=== PATIENT | male | born 1990 | race Caucasian/White ===

== ENCOUNTER 2017-12-17 18:35 | Emergency (ER) | payer MEDICAID, SELFPAY ==
[2017-12-17 18:39] VITALS: BP 160/78; PULSE 80; RESP 16; TEMP 36.6; O2SAT 99
[2017-12-17] MEDS: Benzocaine 20% Gel 30 GM JAR MM (18:53)
--- NOTE | 2017-12-17 19:03 | W.ED.GENAD ---
Discharge Plan Disposition Patient Disposition: HOME Condition: Good Discharge Details Chief Complaint: DentalOral Clinical Impression: Fracture of tooth Primary Care Provider: Allegra Muñiz ED Provider: Ajay Siddiqui Home Meds and New Rx's Prescriptions: New amoxicillin 500 mg capsule 500 mg PO TID Qty: 30 RF: 0 Continue methadone [Dolophine] 10 MG tablet 90 mg PO DAILY RF: 0 Discharge Instructions Instructions: Acute Dental Trauma (ED) Additional Instructions: follow up with your dentist as soon as possible you can take 1000mg tylenol and 600mg ibuprofen every 6 hours for pain as needed Medical Decision Making Patient comes in after he was chewing and felt pain in the right posterior lower molar and noticed he broke part of his tooth about an hour ago. He has no pulp showing on this tooth on my exam but is fractured on the posterior half of the tooth. Will perfrom dental block to help with pain control and place tessa bx and will have him f/u with dentist Differential Diagnosis tooth fracture, dental infection HPI General Mode of arrival: ambulatory. Date/Time Provider Initiated Documentation: 12/17/17 18:45. Limitations to Documentation: no limitations. Information obtained by: patient. History of Present Illness 27 year old M presents to the emergency department with the chief complaint of right lower posterior molar pain, described as severe, with intensity rated at 10. Quality is described as aching, and is localized to the mouth. and it has been constant. No relieving factors improve symptom(s), No exacerbating factors reported . Patient did receive the following treatments prior to arrival, none Related Data Home Medications Medication Instructions Recorded Confirmed methadone [Dolophine] 90 mg PO DAILY 05/27/15 06/09/17 amoxicillin 500 mg PO TID #30 cap 12/17/17 Previous Rx's Medication Instructions Recorded amoxicillin 500 mg PO TID #30 cap 12/17/17 Allergies Allergy/AdvReac Type Severity Reaction Status Date / Time levofloxacin [From Levaquin] Allergy Severe HIVES Unverified 06/09/17 23:37 General Stated Complaint: DentalOral ELLIS: 4 Review of Systems Review of Systems All systems reviewed & are unremarkable except as noted in HPI and below Constitutional Denies chills, Denies fever(s) and Denies weakness Eyes Denies loss of vision ENT Denies change in voice Cardiovascular Denies chest pain and Denies dyspnea Respiratory Denies dyspnea Gastrointestinal Denies abdominal pain, Denies nausea and Denies vomiting Genitourinary Denies dysuria Musculoskeletal Denies joint swelling Integumentary/Breasts Denies rash Neurologic Denies loss of vision and Denies weakness Psychiatric Denies depression Allergic/Immunologic Denies urticaria [facility] Social History Smoking/Tobacco Use Status: Never Exam Const General: no acute distress Orientation: alert HENMT Head: normal to inspection Ears: external ears normal General nose exam: external nose normal Mouth: moist mucous membranes Eyes General: appearance normal, both eyes and all related structures Neck Neck: normal visual inspection Resp Effort & Inspection: normal respiratory effort and able to speak in complete sentences Cardio Rate: regular rate Skin General skin exam: no rashes or lesions noted Neuro General: alert and oriented x3 Extrem General: normal to inspection Psych Mental Status: mental status grossly normal Course Vital Signs Temperature 36.6 C 12/17/17 18:39 Pulse 80 12/17/17 18:39 Respiratory Rate 16 12/17/17 18:39 Blood Pressure 160/78 H 12/17/17 18:39 Pulse Oximetry 99 12/17/17 18:39 Temperature 36.6 C 12/17/17 18:39 Temperature Source Skin 12/17/17 18:39 Pulse 80 12/17/17 18:39 Respiratory Rate 16 12/17/17 18:39 Respiratory Effort 12/17/17 18:42 Blood Pressure 160/78 H 12/17/17 18:39 Blood Pressure Position Sitting 12/17/17 18:39 Pulse Oximetry 99 12/17/17 18:39 Oxygen Delivery Method Room Air 12/17/17 18:39 Oxygen Flow Rate 0 12/17/17 18:39 Pain Level 10 12/17/17 18:50
--- NOTE | 2017-12-17 19:06 | ED.GENADUL_ITS ---
Discharge Plan Disposition Patient Disposition: HOME Condition: Good Discharge Details Chief Complaint: DentalOral Clinical Impression: Fracture of tooth Primary Care Provider: Allegra Muñiz ED Provider: Ajay Siddiqui Home Meds and New Rx's Prescriptions: New amoxicillin 500 mg capsule 500 mg PO TID Qty: 30 RF: 0 Continue methadone [Dolophine] 10 MG tablet 90 mg PO DAILY RF: 0 Discharge Instructions Instructions: Acute Dental Trauma (ED) Additional Instructions: follow up with your dentist as soon as possible you can take 1000mg tylenol and 600mg ibuprofen every 6 hours for pain as needed Medical Decision Making Patient comes in after he was chewing and felt pain in the right posterior lower molar and noticed he broke part of his tooth about an hour ago. He has no pulp showing on this tooth on my exam but is fractured on the posterior half of the tooth. Will perfrom dental block to help with pain control and place tessa bx and will have him f/u with dentist Differential Diagnosis tooth fracture, dental infection HPI General Mode of arrival: ambulatory . Date/Time Provider Initiated Documentation: 12/17/17 18:45 . Limitations to Documentation: no limitations . Information obtained by: patient . History of Present Illness 27 year old M presents to the emergency department with the chief complaint of right lower posterior molar pain, described as severe, with intensity rated at 10. Quality is described as aching, and is localized to the mouth. and it has been constant. No relieving factors improve symptom(s), No exacerbating factors reported . Patient did receive the following treatments prior to arrival, none Related Data Home Medications Medication Instructions Recorded Confirmed methadone [Dolophine] 90 mg PO DAILY 05/27/15 06/09/17 amoxicillin 500 mg PO TID #30 cap 12/17/17 Previous Rx's Medication Instructions Recorded amoxicillin 500 mg PO TID #30 cap 12/17/17 Allergies Allergy/AdvReac Type Severity Reaction Status Date / Time levofloxacin [From Levaquin] Allergy Severe HIVES Unverified 06/09/17 23:37 General Stated Complaint: DentalOral ELLIS: 4 Review of Systems Review of Systems All systems reviewed & are unremarkable except as noted in HPI and below Constitutional Denies chills, Denies fever(s) and Denies weakness Eyes Denies loss of vision ENT Denies change in voice Cardiovascular Denies chest pain and Denies dyspnea Respiratory Denies dyspnea Gastrointestinal Denies abdominal pain, Denies nausea and Denies vomiting Genitourinary Denies dysuria Musculoskeletal Denies joint swelling Integumentary/Breasts Denies rash Neurologic Denies loss of vision and Denies weakness Psychiatric Denies depression Allergic/Immunologic Denies urticaria [facility] Social History Smoking/Tobacco Use Status: Never Exam Const General: no acute distress Orientation: alert HENMT Head: normal to inspection Ears: external ears normal General nose exam: external nose normal Mouth: moist mucous membranes Eyes General: appearance normal, both eyes and all related structures Neck Neck: normal visual inspection Resp Effort & Inspection: normal respiratory effort and able to speak in complete sentences Cardio Rate: regular rate Skin General skin exam: no rashes or lesions noted Neuro General: alert and oriented x3 Extrem General: normal to inspection Psych Mental Status: mental status grossly normal Course Vital Signs Temperature 36.6 C 12/17/17 18:39 Pulse 80 12/17/17 18:39 Respiratory Rate 16 12/17/17 18:39 Blood Pressure 160/78 H 12/17/17 18:39 Pulse Oximetry 99 12/17/17 18:39 Temperature 36.6 C 12/17/17 18:39 Temperature Source Skin 12/17/17 18:39 Pulse 80 12/17/17 18:39 Respiratory Rate 16 12/17/17 18:39 Respiratory Effort 12/17/17 18:42 Blood Pressure 160/78 H 12/17/17 18:39 Blood Pressure Position Sitting 12/17/17 18:39 Pulse Oximetry 99 12/17/17 18:39 Oxygen Delivery Method Room Air 12/17/17 18:39 Oxygen Flow Rate 0 12/17/17 18:39 Pain Level 10 12/17/17 18:50
[2017-12-17] MEDS: Amoxicillin 500 MG CAP PO (19:14)
[2017-12-17] MEDS: oxyCODONE 5 MG TAB 10 MG PO (19:19)
== END 2017-12-17 19:19 | disposition home or self-care (01) ==
LOC: ER 19:15
PROVIDERS: Emergency Provider Emergency Medicine; PCP Family Medicine
DX: S02.5XXA Fracture of tooth (traumatic), initial encounter for closed fracture (principal); X50.0XXA Overexertion from strenuous movement or load, initial encounter
CPT/HCPCS: 99283

== ENCOUNTER 2018-06-01 18:18 | Emergency (ER) | payer MEDICAID, SELFPAY ==
[2018-06-01 18:21] VITALS: BP 108/64; PULSE 82; RESP 20; TEMP 36.7; O2SAT 96
--- NOTE | 2018-06-01 18:52 | W.ED.GENAD ---
Discharge Plan Disposition Patient Disposition: HOME Condition: Good Discharge Details Chief Complaint: Sorethroat Clinical Impression: Acute sore throat Primary Care Provider: Allegra Muñiz ED Provider: Bryon Staton Home Meds and New Rx's Prescriptions: No Action methadone [Dolophine] 10 MG tablet 120 mg PO DAILY RF: 0 Discharge Instructions Instructions: Pharyngitis (ED) Additional Instructions: Please take up to 600 mg of ibuprofen every 6 hours and 1000 mg of Tylenol every 6 hours as needed for pain. If after 1 total week of symptoms you do not have any improvement or resolution, please follow-up promptly with your primary care provider for potential outpatient ENT referral. If you notice any worsening of your symptoms, or any new symptoms such as vomiting, diarrhea, fever, chills, shortness of breath, chest pain, numbness, weakness, or fainting , please return immediately to the emergency department for reevaluation. Please follow up with your primary care provider as soon as possible for reassessment and reevaluation. As always, it was a pleasure participating in your medical care today. Referrals: Allegra Muñiz [Primary Care Provider] - Discharge Data Discharge Date/Time-TO BE ENTERED AT DEPARTURE: 06/01/18 18:59 Medical Decision Making This is a pleasant 28-year-old male who presents with 2 days of mild sore throat. Exam is notably benign with no clinical evidence of meningitis, severe strep throat, peritonsillar abscess. Strep test negative, suspect viral URI, recommend continue Tylenol Motrin and fluids. Discussed red flags which to return the patient understands I have extensively reviewed the treatment plan and discharge instructions with the patient. I have addressed all patient concerns at this time. The patient was made aware of what symptoms to monitor for that would warrant a return to the emergency department. Discussed the plan with the patient, they demonstrate verbal understanding and agreement with our assessment and plan at this time. HPI General Date/Time Provider Initiated Documentation: 06/01/18 18:22. 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 Denies any fever or chills, he denies any significant hoarseness in his speech. He denies any cough, chest pain, shortness of breath, neck pain, numbness tingling weakness. He does admit to other sick contacts with similar symptoms he denies any headache, vomiting or diarrhea. No other complaints at this time. No other modifying factors. Related Data Home Medications Medication Instructions Recorded Confirmed methadone [Dolophine] 120 mg PO DAILY 05/27/15 06/01/18 Allergies Allergy/AdvReac Type Severity Reaction Status Date / Time levofloxacin [From Levaquin] Allergy Severe HIVES Unverified 06/01/18 18:23 General Stated Complaint: Sorethroat ELLIS: 4 Review of Systems Review of Systems All systems reviewed & are unremarkable except as noted in HPI and below [facility] Social History Smoking/Tobacco Use Status: Current every day Tobacco Type: e-cigarettes Alcohol Intake: former Drug use: Daily Substance use type: marijuana Do you feel safe at home: Yes Do you feel safe in your relationship?: Yes Exam Narrative Exam Narrative: 1.Const: Well-nourished, Well-developed, appearing stated age 2.Eyes: PERRL, no conjunctival injection, and symmetrical lids. 3.ENT: Atraumatic external nose and ears. Moist MM. Neck: Symmetric, trachea midline, No thyromegaly. Tonsils are normal, no evidence of tonsillar exudate or enlargement. No signs of peritonsillar abscess 4.CVS: +S1/S2, No murmurs or gallops. Peripheral pulses 2+ and equal in all extremities. Brisk capillary refill in all extremities. 5.RESP: Unlabored respiratory effort. Clear to auscultation bilaterally. No wheezes rales or rhonchi 6.GI: Soft, Nontender/Nondistended, No hepatosplenomegaly. No guarding or rebound. 7.MSK: Normocephalic/Atraumatic, Extremities w/o deformity or ttp No cyanosis or clubbing, Normal movement of all extremities 8.Skin: Warm, Dry. No rashes or lesions. 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 Sensation grossly intact, no focal neurologic deficits. 10.Psych: (AAO) x3. Appropriate mood and affect Course Vital Signs Temperature 36.7 C 06/01/18 18:21 Pulse 82 06/01/18 18:21 Respiratory Rate 20 04/14/19 18:21 Blood Pressure 108/64 04/14/19 18:21 Pulse Oximetry 96 06/01/18 18:21 Temperature 36.7 C 06/01/18 18:21 Temperature Source Temporal Artery Scan 06/01/18 18:21 Pulse 82 06/01/18 18:21 Respiratory Rate 20 06/01/18 18:21 Respiratory Effort Non-Labored 06/01/18 18:21 Blood Pressure 108/64 06/01/18 18:21 Blood Pressure Position Sitting 06/01/18 18:21 Pulse Oximetry 96 06/01/18 18:21 Oxygen Delivery Method Room Air 06/01/18 18:21 Oxygen Flow Rate 0 06/01/18 18:21 Pain Level 4 06/01/18 18:21
== END 2018-06-01 18:59 | disposition home or self-care (01) ==
PROVIDERS: Emergency Provider Student in an Organized Health Care Education/Training Program; PCP Family Medicine
DX: J02.9 Acute pharyngitis, unspecified (principal)
CPT/HCPCS: 87880; 99282; 87081

== ENCOUNTER 2019-04-06 14:14 | Emergency (ER) | payer MEDICAID, SELFPAY ==
--- NOTE | 2019-04-06 14:15 | DI.RAD_ITS ---
EXAM: XR CHEST 2V PA AND LATERAL CLINICAL HISTORY: COUGH AND CP. TECHNIQUE: 2D digital imaging was performed. COMPARISON: CHEST 2 VIEWS PA,LAT from 06/12/2015 FINDINGS: LUNGS: Clear. No pleural abnormality seen. HEART: Normal. MEDIASTINUM: Normal. OTHER FINDINGS:Normal. BONE:Normal. IMPRESSION: No acute pulmonary findings.
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
[2019-04-06 14:21] VITALS: BP 100/65; PULSE 53; RESP 15; TEMP 36.6; O2SAT 98
[2019-04-06 14:27] VITALS: RESP 13
[2019-04-06] MEDS: Normal Saline Flush 10 ML SYR IVP (14:40)
[2019-04-06 14:59] LABS: Abs Immature Grans 0.01 k/cumm (0.0-0.09); Absolute Basophil Count 0.01 k/cumm (0.0-0.2); Absolute Eosinophil Count 0.22 k/cumm (0.0-0.7); Absolute Lymphocyte Count 2.93 k/cumm (1.2-3.4); Absolute Monocyte Count 0.34 k/cumm (0.11-0.7); Absolute Neutrophil Count 3.23 k/cumm (1.2-6.7); Basophils % 0.1; Eosinophils % 3.3; HCT 37.6 % (40.0-50.0); HGB 12.3 g/dL (13.5-17.5); Immature Grans % 0.1 %; Lymphocytes % 43.5; Mean Corp. HGB Concentration 32.7 g/dL (32.0-36.0); Mean Corpuscular Hemoglobin 30.7 pg (27.0-33.0); Mean Corpuscular Volume 93.8 fL (80-95); Mean Platelet Volume 9.6 fL (8.0-11.0); Platelet Count 216 x1000/uL (130-400); RBC 4.01 m/cumm (4.50-6.00); RBC Distribution Width 12.3 % (11.8-14.1); White Blood Cell Count 6.74 k/cumm (4.4-10.8)
[2019-04-06 15:26] LABS: ALT 47 U/L (16-63); AST 30 U/L (15-37); Albumin 3.8 g/dL (3.4-5.0); Alkaline Phosphatase 63 U/L (46-116); Anion Gap 6.1 mmol/L (3-11); BUN 15 mg/dL (7-18); Bilirubin, Total 0.2 mg/dL (0.2-1.0); CO2 32.9 mmol/L (21.0-32.0); Calcium 8.1 mg/dL (8.5-10.1); Chloride 105 mmol/L (98-107); Glucose 83 mg/dL (74-106); Magnesium 2.1 mg/dL (1.8-2.4); Potassium 3.8 mmol/L (3.5-5.1); Sodium 144 mmol/L (136-145)
[2019-04-06 15:27] LABS: Troponin I < 0.05 ng/Ml (<0.06)
[2019-04-06 15:57] VITALS: BP 95/57; PULSE 54; RESP 16; TEMP 36.7; O2SAT 99
== END 2019-04-06 16:01 | disposition home or self-care (01) ==
PROVIDERS: Emergency Provider Physician Assistant; PCP Family Medicine
DX: R07.81 Pleurodynia (principal)
CPT/HCPCS: 80053; 87449; 93005; 99284; 71046; 83735; 84443; 84484; 85025; 93010

== ENCOUNTER 2019-07-11 17:33 | Emergency (ER) | payer MEDICAID, SELFPAY ==
[2019-07-11 17:36] VITALS: BP 120/74; PULSE 77; TEMP 36.6; O2SAT 98
--- NOTE | 2019-07-11 17:56 | W.ED.GENAD ---
Discharge Plan Disposition Patient Disposition: HOME Condition: Improving Discharge Details Chief Complaint: Laceration Clinical Impression: Laceration of left thumb Primary Care Provider: Allegra Muñiz ED Provider: Emmanuel Hernandez Home Meds and New Rx's Prescriptions: Continued methadone [Dolophine] 10 MG tablet 125 mg PO DAILY RF: 0 Discharge Instructions Instructions: Laceration (ED) Additional Instructions: Your tetanus was updated today. Leave dressing in place for 5 to 7 days time, then may remove and redressed. Steri-Strips and tissue adhesive will slowly peel off and be ready for removal in 7 to 10 days time. Elevate to reduce pain and swelling. Return if develop a fever, redness, foul smelling discharge from the wound or any other acute concern. Medical Decision Making 29-year-old male presents from home after cutting his left thumb tip with a hand saw. Tetanus status was updated. The wound was closed with Steri-Strips and tissue adhesive and dressed by myself at the bedside. Patient understands homecare as well as indications to seek reevaluation. He is stable and improved at this time. HPI General Mode of arrival: ambulatory. Date/Time Provider Initiated Documentation: 07/11/19 17:39. Limitations to Documentation: no limitations. Information obtained by: patient. History of Present Illness 29 year old M presents to the emergency department with the chief complaint of Left thumb laceration, described as mild, and is localized to the left. Patient reports no radiation. Patient started experiencing this minute(s) and it has been constant. Patient did receive the following treatments prior to arrival, other (Dressing applied at home) Related Data Home Medications Medication Instructions Recorded Confirmed methadone [Dolophine] 125 mg PO DAILY 05/27/15 07/11/19 Allergies Allergy/AdvReac Type Severity Reaction Status Date / Time levofloxacin [From Levaquin] Allergy Severe HIVES Unverified 07/11/19 17:39 General Stated Complaint: Laceration ELLIS: 3 Review of Systems Narrative: Unsure of tetanus status. Otherwise healthy male. 4 systems reviewed and otherwise negative [facility] Social History Smoking/Tobacco Use Status: Never Alcohol Intake: former Drug use: Daily Substance use type: marijuana Do you feel safe at home: Yes Do you feel safe in your relationship?: Yes Exam Narrative Exam Narrative: GEN: awake, alert, oriented 3. Pleasant, well groomed, interactive. HEAD: Normocephalic, atraumatic ENT: Mucous membranes moist, oropharynx unremarkable, External ear exam unremarkable EYES: PERRL, EOMI EXT: Full ROM, no edema, no rash. The left thumb tip has a shallow flap laceration measuring approximate 1 cm. Capillary fill is less than 2 seconds. The small area distal to the flap appears devascularized. Neuro: Grossly normal neurologic exam, conversant, interactive. Psych: Speech fluent, thoughts congruent, affect normal Course Vital Signs Vital signs: Vital Signs Temperature 36.6 C 07/11/19 17:36 Pulse 77 07/11/19 17:36 Blood Pressure 120/74 07/11/19 17:36 Pulse Oximetry 98 07/11/19 17:36 Temperature 36.6 C 07/11/19 17:36 Temperature Source Temporal Artery Scan 07/11/19 17:36 Pulse 77 07/11/19 17:36 Respiratory Effort Non-Labored 07/11/19 17:37 Blood Pressure 120/74 07/11/19 17:36 Blood Pressure Position Sitting 07/11/19 17:36 Pulse Oximetry 98 07/11/19 17:36 Oxygen Delivery Method Room Air 07/11/19 17:36 Oxygen Flow Rate 0 07/11/19 17:36 Pain Level 5 07/11/19 17:54
[2019-07-11] MEDS: Tetanus & Diphtheria Tox,ADULT 0.5 ML VIAL IM (18:22)
== END 2019-07-11 18:45 | disposition home or self-care (01) ==
PROVIDERS: Emergency Provider Emergency Medicine; PCP Family Medicine
DX: S61.012A Laceration without foreign body of left thumb without damage to nail, initial encounter (principal); W27.0XXA Contact with workbench tool, initial encounter
CPT/HCPCS: 12001; 90471

== ENCOUNTER 2019-08-10 17:32 | Emergency (ER) | payer MEDICAID, SELFPAY ==
[2019-08-10 17:50] VITALS: BP 115/67; PULSE 60; RESP 16; TEMP 36.7; O2SAT 97
--- NOTE | 2019-08-10 18:12 | ED.GENADUL_ITS ---
Discharge Plan Disposition Patient Disposition: HOME Condition: Good Discharge Details Chief Complaint: SOB Clinical Impression: Atypical chest pain, Chest pain, pleuritic Primary Care Provider: Allegra Muñiz ED Provider: Gunjan Neal Home Meds and New Rx's Prescriptions: Continued methadone [Dolophine] 10 MG tablet 125 mg PO DAILY RF: 0 Discharge Instructions Instructions: Chest Pain (ED) Additional Instructions: Continue to encourage water intake. You may use Tylenol and/or ibuprofen as needed for discomfort. I would like you to follow-up with a primary care at the end of the week if pain or shortness of breath is not improving. Your imaging and laboratory evaluation is reassuring today. If develop increased difficulty breathing, increased shortness of breath, inability stay hydrated or other new/worsening symptom please seek care urgently once again. Referrals: Allegra Muñiz [Primary Care Provider] - Discharge Data Discharge Date/Time-TO BE ENTERED AT DEPARTURE: 08/10/19 21:05 Medical Decision Making Patient is a pleasant 29-year-old gentleman presenting today with chief complaint of shortness of breath. He reports this came on when he was working 5 days ago. 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 States that he has been having this continued shortness of breath, no acute changes. Also endorses some pleuritic discomfort. States that this too is worse with exertion and movement. Denies any fevers or chills. No cough. Denies any other URI s ymptoms. Denies any GI upset. Patient is concerned that he has had a PE historically, PE had been associated with trauma. States that he had been hospitalized for quite some time and it was after the hospitalization he developed pulmonary embolism. He denies other history of DVT or PE. No family history of clotting disorders. He is unclear if this feels similar to his previous PE. Patient is no longer anticoagulated. He denies any recent times of being sedentary. No recent illness or hospitalization. Denies any recent travel. On exam, patient is resting comfortably. He is not appear to be in any distress. Normal cardiac and respiratory exam. No calf tenderness or lower extremity edema. Rule out for PE given the patient's history would be appropriate. Patient is received 1 point4 PERC based on history. Patient does not smoke. 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 This does not correlate with fluid li treva is not a GI source. ECG was obtained and reviewed by Dr. Dent. Patient's sinus bradycardia with a rate of 47. Chart review shows the patient is often low 50s. Is no acute ischemic changes noted. FINDINGS: Lungs: Unremarkable. No consolidation. Pleural space: No pleural effusion or pneumothorax. Heart/Mediastinum: Normal in size. Bones/joints: Unremarkable. IMPRESSION: No acute findings. Labs reviewed. No leukocytosis. Mildly anemic with a hemoglobin of 12.3 which is baseline for the patient. D-dimer is within normal limits. Troponin is within normal limits. No abnormalities on the CMP. Patient's heart score is negative, do not feel that repeat troponin is warranted at this time. Discussed these findings with the patient. Seems quite reassured with a negative d-dimer. I advised that he may continue with Tylenol or ibuprofen as needed for discomfort. Encourage close follow-up with primary care. He was given strict return precautions. All his questions and concerns were addressed and he is agreement this plan. HPI General Date/Time Provider Initiated Documentation: 08/10/19 18:12 . Related Data Home Medications Medication Instructions Recorded Confirmed methadone [Dolophine] 125 mg PO DAILY 05/27/15 08/10/19 Allergies Allergy/AdvReac Type Severity Reaction Status Date / Time levofloxacin [From Levaquin] Allergy Severe HIVES Unverified 08/10/19 17:56 General Stated Complaint: SOB ELLIS: 3 PFSH Social History Smoking/Tobacco Use Status: Never Alcohol Intake: former Drug use: Daily Substance use type: marijuana Details: Methadone clinic Do you feel safe at home: Yes Do you feel safe in your relationship?: Yes Course Vital Signs Vital signs: Vital Signs Temperature 36.7 C 08/10/19 17:50 Pulse 60 08/10/19 17:50 Respiratory Rate 16 08/10/19 17:50 Blood Pressure 115/67 08/10/19 17:50 Pulse Oximetry 97 08/10/19 17:50 Temperature 36.7 C 08/10/19 17:50 Temperature Source Temporal Artery Scan 08/10/19 17:50 Pulse 60 08/10/19 17:50 Respiratory Rate 16 08/10/19 17:50 Respiratory Effort Non-Labored 08/10/19 17:55 Blood Pressure 115/67 08/10/19 17:50 Blood Pressure Position Sitting 08/10/19 17:50 Pulse Oximetry 97 08/10/19 17:50 Oxygen Delivery Method Room Air 08/10/19 17:50 Oxygen Flow Rate 0 08/10/19 17:50 Pain Level 0 08/10/19 17:50
[2019-08-10 19:05] VITALS: RESP 16
[2019-08-10 19:18] LABS: Abs Immature Grans 0.01 k/cumm (0.0-0.09); Absolute Basophil Count 0.03 k/cumm (0.0-0.2); Absolute Eosinophil Count 0.35 k/cumm (0.0-0.7); Absolute Lymphocyte Count 4.18 k/cumm (1.2-3.4); Absolute Monocyte Count 0.45 k/cumm (0.11-0.7); Absolute Neutrophil Count 3.84 k/cumm (1.2-6.7); Basophils % 0.3; HCT 37.5 % (40.0-50.0); HGB 12.3 g/dL (13.5-17.5); Immature Grans % 0.1 %; Lymphocytes % 47.2; Mean Corp. HGB Concentration 32.8 g/dL (32.0-36.0); Mean Corpuscular Hemoglobin 30.9 pg (27.0-33.0); Mean Corpuscular Volume 94.2 fL (80-95); Mean Platelet Volume 9.9 fL (8.0-11.0); Monocytes % 5.1; Neutrophils % 43.3; Platelet Count 251 x1000/uL (130-400); RBC 3.98 m/cumm (4.50-6.00); RBC Distribution Width 12.4 % (11.8-14.1); White Blood Cell Count 8.86 k/cumm (4.4-10.8)
[2019-08-10 19:32] LABS: ALT 47 U/L (16-63); AST 32 U/L (15-37); Albumin 4.1 g/dL (3.4-5.0); Alkaline Phosphatase 66 U/L (46-116); Anion Gap 6.8 mmol/L (3-11); BUN 12 mg/dL (7-18); Bilirubin, Total 0.2 mg/dL (0.2-1.0); CO2 30.2 mmol/L (21.0-32.0); CREATININE 0.97 mg/dL (0.70-1.30); Calcium 8.9 mg/dL (8.5-10.1); Chloride 104 mmol/L (98-107); Glucose 90 mg/dL (74-106); Potassium 3.7 mmol/L (3.5-5.1); Sodium 141 mmol/L (136-145)
[2019-08-10 19:34] LABS: Troponin I < 0.05 ng/mL (<0.06)
--- NOTE | 2019-08-10 19:40 | DI.RAD_ITS ---
EXAM: XR PORTABLE CHEST AP CLINICAL HISTORY: chest discomfort, SOB. TECHNIQUE: 2D digital imaging was performed. COMPARISON: CR XR CHEST 2V PA LATERAL from 04/06/2019 FINDINGS: LUNGS: Clear. No pleural abnormality seen. HEART: Normal. MEDIASTINUM: Normal. OTHER FINDINGS: None. IMPRESSION: No acute pulmonary findings. DATA REPOSITORY: RADIATION DOSE DELIVERED:
--- NOTE | 2019-08-10 19:56 | DI.VRAD_ITS ---
PROCEDURE INFORMATION: Exam: XR Chest, 1 View Exam date and time: 08/10/2019 7:33 PM Age: 29 years old Clinical indication: Shortness of breath and other: Chest discomfort; Patient HX: Chest discomfort and SOB TECHNIQUE: Imaging protocol: XR of the chest Views: 1 view. COMPARISON: CR XR CHEST 2V PA LATERAL 04/06/2019 2:57 PM FINDINGS: Lungs: Unremarkable. No consolidation. Pleural space: No pleural effusion or pneumothorax. Heart/Mediastinum: Normal in size. Bones/joints: Unremarkable. IMPRESSION: No acute findings. Dictated and Authenticated by: Pierre Delcid MD. Ordering:MAYLIN Hollins MD
[2019-08-10 20:23] LABS: D-Dimer 255 ng/mlFEU (<500)
[2019-08-10 20:41] VITALS: BP 114/80; PULSE 56; RESP 14; TEMP 36.7; O2SAT 100
== END 2019-08-10 21:05 | disposition home or self-care (01) ==
PROVIDERS: Emergency Provider Physician Assistant; PCP Family Medicine
DX: R07.81 Pleurodynia (principal); R06.02 Shortness of breath; Z86.711 Personal history of pulmonary embolism
CPT/HCPCS: 36415; 80053; 93005; 99285; 71045; 84484; 85025; 85379; 93010; 99281

== ENCOUNTER 2019-12-24 19:46 | Emergency (ER) | payer MEDICAID, SELFPAY ==
[2019-12-24 19:53] VITALS: BP 108/71; PULSE 80; RESP 16; TEMP 36.6; O2SAT 96
--- NOTE | 2019-12-24 20:06 | ED.GENADUL_ITS ---
Discharge Plan Disposition Patient Disposition: HOME Condition: Stable Discharge Details Clinical Impression: Pain in right shoulder, Biceps tendinitis of right shoulder Primary Care Provider: Allegra Muñiz ED Provider: Ajay Siddiqui Home Meds and New Rx's Prescriptions: Continued methadone [Dolophine] 10 MG tablet 125 mg PO DAILY RF: 0 Discharge Instructions Instructions: How to Use a Sling (ED), Tendinitis (ED) Additional Instructions: you can take 1000mg tylenol and 600mg ibuprofen every 6 hours for pain as needed if pain not improving next week call orthopedics for an appointment if you have fevers, arm swelling or feel more ill return to the emergency department Stand Alone Forms: Work Release Referrals: Catrachito Garcia MD [ [facility] ST[facility]FF PHYSICIAN] - Medical Decision Making 29 yo male who denies chronic medical problems 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 Denies trauma, fevers, swelling, numbness, chest pain or dyspnea or neck pain. Localizes the pain to the anterior right shoulder. HAs full rom of the shoulder but has pain when fully abducting, no visible for palable deformities. No swelling or erythema or warmth. Normal distal sensation and pulses and full rom of wrist, hand and elbow. Has pain over insertion of biceps tendon to shoulder so suspect tendonitis. Will have him start nsaids and have him call orthopedics if not improving. Has no findings to suggest septic joint and no trauma with no findings to suggest fracture so do not feel imaging indicated. Return precautions given Differential Diagnosis Differential Diagnosis: biceps tendonitis, rotator cuff injury, strain HPI General Mode of arrival: ambulatory . Date/Time Provider Initiated Documentation: 12/24/19 19:52 . Limitations to Documentation: no limitations . Information obtained by: patient . History of Present Illness 29 year old M presents to the emergency department with the chief complaint of right shoulder pain, described as moderate, and it has been constant. Rest improves symptom(s), Movement worsens symptoms . Patient notes no other symptoms.. Patient did receive the following treatments prior to arrival, none Related Data Home Medications Medication Instructions Recorded Confirmed methadone [Dolophine] 125 mg PO DAILY 16 08/10/19 Allergies Allergy/AdvReac Type Severity Reaction Status Date / Time levofloxacin [From Levaquin] Allergy Severe HIVES Unverified 08/10/19 17:56 General Stated Complaint: Orthopedic ELLIS: 3 Review of Systems All systems reviewed & are unremarkable except as noted in HPI and below Constitutional Constitutional: Denies chills, Denies fever(s) and Denies weakness Cardiovascular Cardiovascular: Denies chest pain and Denies dyspnea Respiratory Respiratory: Denies cough and Denies dyspnea Gastrointestinal Gastrointestinal: Denies abdominal pain, Denies nausea and Denies vomiting Musculoskeletal Musculoskeletal: Denies joint swelling Neurologic Neurologic: Denies weakness [facility] Social History Smoking/Tobacco Use Status: Never Smoking risk assessment performed?: Yes Alcohol Intake: current Drug use: Daily Substance use type: marijuana Details: Methadone clinic Do you feel safe at home: Yes Do you feel safe in your relationship?: Yes Exam Const General: no acute distress Orientation: alert HENMT Head: normal to inspection Ears: external ears normal General nose exam: external nose normal Mouth: moist mucous membranes Eyes General: appearance normal, both eyes and all related structures Neck Neck: normal visual inspection Resp Effort & Inspection: normal respiratory effort and able to speak in complete sentences Cardio Rate: regular rate Skin General skin exam: no rashes or lesions noted Neuro General: patient alert and patient oriented x3 Extrem General: normal to inspection Psych Mental Status: mental status grossly normal Course Vital Signs Vital signs: Vital Signs Temperature 36.6 C 12/24/19 19:53 Pulse 80 12/24/19 19:53 Respiratory Rate 16 12/24/19 19:53 Blood Pressure 108/71 12/24/19 19:53 Pulse Oximetry 96 12/24/19 19:53 Temperature 36.6 C 12/24/19 19:53 Temperature Source Temporal Artery Scan 12/24/19 19:53 Pulse 80 12/24/19 19:53 Respiratory Rate 16 12/24/19 19:53 Respiratory Effort Non-Labored 12/24/19 19:54 Blood Pressure 108/71 12/24/19 19:53 Blood Pressure Position Sitting 12/24/19 19:53 Pulse Oximetry 96 12/24/19 19:53 Oxygen Delivery Method Room Air 12/24/19 19:53 Oxygen Flow Rate 0 12/24/19 19:53 Pain Level 6 12/24/19 19:54
[2019-12-24 20:22] VITALS: BP 108/71; PULSE 80; RESP 16; TEMP 36.6; O2SAT 96
== END 2019-12-24 20:20 | disposition home or self-care (01) ==
PROVIDERS: Emergency Provider Emergency Medicine; PCP Family Medicine
DX: M75.21 Bicipital tendinitis, right shoulder (principal)
CPT/HCPCS: 99282; 99284; L3650

== ENCOUNTER 2020-03-14 11:29 | Emergency (ER) | payer MEDICAID, SELFPAY ==
[2020-03-14 11:34] VITALS: BP 113/76; PULSE 86; RESP 18; TEMP 36.6; O2SAT 98
--- NOTE | 2020-03-14 11:49 | W.ED.GENAD ---
Discharge Plan Disposition Patient Disposition: HOME Condition: Stable Discharge Details Clinical Impression: Tooth ache Primary Care Provider: Allegra Muñiz ED Provider: Emma Burns Home Meds and New Rx's Prescriptions: New clindamycin HCl 300 mg capsule 300 mg PO BID 7 Days Qty: 14 RF: 0 No Action methadone [Dolophine] 10 MG tablet 185 mg PO DAILY RF: 0 Discharge Instructions Instructions: Toothache (ED) Additional Instructions: Please take Tylenol or Ibuprofen with food every 4-6 hours as needed for pain and swelling. You do need to follow-up with a dentist. Take prescription antibiotic as directed. Return to the ED for any fever, swelling, drainage or any worsening. Referrals: Allegra Muñiz [Primary Care Provider] - Discharge Data Discharge Date/Time-TO BE ENTERED AT DEPARTURE: 03/14/20 12:02 Medical Decision Making 30-year-old male presents to the ER with right lower molar pain. Patient this is been bothering him for approximately 6 days he has been trying topical Orajel at home without relief. He is unable to get into his dentist. He is a daily smoker, he does take methadone. He did not take any Tylenol or ibuprofen prior to arrival. He denies any fever, chills or drainage noted from the area. On exam it is noted that he does have a broken molar with some gum overgrowth to his right posterior molar. #31. 1152: Did offer dental block which patient declined at this time. We will give a intermilligrams ibuprofen here in department, Hurricaine gel applied topically to area and will place patient on clindamycin. Patient given dental resources and instructed to follow up, verbalized understanding. HPI General Mode of arrival: ambulatory. Date/Time Provider Initiated Documentation: 03/14/20 11:37. Limitations to Documentation: no limitations. Information obtained by: patient. HPI Narrative: 30-year-old male presents to the ER with right lower molar pain. Patient this is been bothering him for approximately 6 days he has been trying topical Orajel at home without relief. He is unable to get into his dentist. He is a daily smoker, he does take methadone. He did not take any Tylenol or ibuprofen prior to arrival. He denies any fever, chills or drainage noted from the area. On exam it is noted that he does have a broken molar with some gum overgrowth to his right posterior molar. #31. Related Data Home Medications Medication Instructions Recorded Confirmed methadone [Dolophine] 185 mg PO DAILY 05/27/15 03/14/20 clindamycin HCl 300 mg PO BID 7 Days #14 cap 03/14/20 Previous Rx's Medication Instructions Recorded clindamycin HCl 300 mg PO BID 7 Days #14 cap 03/14/20 Allergies Allergy/AdvReac Type Severity Reaction Status Date / Time levofloxacin [From Levaquin] Allergy Severe HIVES Unverified 03/14/20 11:37 General Stated Complaint: DentalOral ELLIS: 4 Review of Systems All systems reviewed & are unremarkable except as noted in HPI and below ENT Ears, Nose, Mouth, and Throat: Reports as per HPI and Reports other (Tooth pain right lower) [facility] Social History Smoking/Tobacco Use Status: Never Smoking risk assessment performed?: Yes Alcohol Intake: current Drug use: Daily Substance use type: marijuana Details: Methadone clinic Do you feel safe at home: Yes Do you feel safe in your relationship?: Yes Exam HENMT Teeth and gingiva: caries Teeth image: 1. Gingival pain, broken molar, no abscess or area of fluctuance palpated. No drainage. Course Vital Signs Vital signs: Vital Signs Temperature 36.6 C 03/14/20 11:34 Pulse 86 03/14/20 11:34 Respiratory Rate 18 03/14/20 11:34 Blood Pressure 113/76 03/14/20 11:34 Pulse Oximetry 98 03/14/20 11:34 Temperature 36.6 C 03/14/20 11:34 Temperature Source Skin 03/14/20 11:34 Pulse 86 03/14/20 11:34 Respiratory Rate 18 03/14/20 11:34 Respiratory Effort Non-Labored 03/14/20 11:36 Blood Pressure 113/76 03/14/20 11:34 Blood Pressure Position Sitting 03/14/20 11:34 Pulse Oximetry 98 03/14/20 11:34 Oxygen Delivery Method Room Air 03/14/20 11:34 Oxygen Flow Rate 0 03/14/20 11:34 Pain Level 8 03/14/20 11:39
[2020-03-14] MEDS: Benzocaine 20% Gel 30 GM JAR MM (12:02)
[2020-03-14] MEDS: Ibuprofen 800 MG TAB PO (12:02)
[2020-03-14] MEDS: Clindamycin 300 MG CAP PO (12:02)
== END 2020-03-14 12:02 | disposition home or self-care (01) ==
PROVIDERS: Emergency Provider Registered Nurse Emergency; PCP Family Medicine
DX: R68.84 Jaw pain (principal)
CPT/HCPCS: 99283

== ENCOUNTER 2020-03-23 10:47 | Emergency (ER) | payer MEDICAID, SELFPAY ==
[2020-03-23 10:52] VITALS: BP 125/73; PULSE 69; TEMP 36.4; O2SAT 97
--- NOTE | 2020-03-23 11:08 | W.ED.GENAD ---
Discharge Plan Disposition Patient Disposition: HOME Condition: Improving Discharge Details Clinical Impression: Spasm of thoracic back muscle Primary Care Provider: Allegra Muñiz ED Provider: Emmanuel Hernandez Home Meds and New Rx's Prescriptions: New methocarbamol 500 mg tablet 1,000 mg PO Q6H PRN (Reason: Back pain or spasm) Qty: 14 RF: 0 Continued methadone [Dolophine] 10 MG tablet 185 mg PO DAILY RF: 0 acetaminophen [Tylenol] 325 mg Tablet 325 mg PO ONCE RF: 0 Discharge Instructions Instructions: Muscle Spasm (ED) Additional Instructions: Small, frequent sips of fluids so that you liberally hydrate today. Increase fruits and vegetables for trace minerals and electrolytes such as potassium and magnesium. Continue Tylenol as needed for pain with methocarbamol as prescribed, as needed for spasm. Return to ER for worsening or any other acute concerns. No lifting greater than 8 pounds. No abrupt body movements or bending over. Medical Decision Making 30-year-old male who was shoveling snow and then felt twinging in his thoracic back. Since that time he said increased muscular spasm and twinging with movement. No loss of bowel or bladder control, no lower extremity weakness or numbness. He was not injured in any other way for does not have shortness of breath. Patient exam is otherwise reassuring. Will place him on mild muscle relaxant as well as apply a Lidoderm patch. He will liberally hydrate today. He understands homecare and return precautions. HPI General Mode of arrival: ambulatory. Date/Time Provider Initiated Documentation: 03/23/20 10:54. Limitations to Documentation: no limitations. Information obtained by: patient. History of Present Illness 30 year old M presents to the emergency department with the chief complaint of Back pain, described as moderate, Quality is described as dull, and is localized to the right. Patient reports no radiation. Patient started experiencing this day(s) and it has been constant. No relieving factors improve symptom(s), Movement worsens symptoms . Patient notes no other symptoms.. Patient did receive the following treatments prior to arrival, other (tylenol) Related Data Home Medications Medication Instructions Recorded Confirmed methadone [Dolophine] 185 mg PO DAILY 05/26/16 03/23/20 acetaminophen [Tylenol] 325 mg PO ONCE 03/23/20 03/23/20 methocarbamol 1,000 mg PO Q6H PRN #14 tab 03/23/20 Previous Rx's Medication Instructions Recorded methocarbamol 1,000 mg PO Q6H PRN #14 tab 03/23/20 Allergies Allergy/AdvReac Type Severity Reaction Status Date / Time levofloxacin [From Levaquin] Allergy Severe HIVES Unverified 03/23/20 10:55 General Stated Complaint: Nk/Back Pain ELLIS: 4 Review of Systems Narrative: No SOB, no recent illness. No direct trauma. 6 systems reviewed and otherwise neg [facility] Social History Smoking/Tobacco Use Status: Never Smoking risk assessment performed?: Yes Alcohol Intake: current Drug use: Daily Substance use type: marijuana Details: Methadone clinic Do you feel safe at home: Yes Do you feel safe in your relationship?: Yes Exam Narrative Exam Narrative: GEN: awake, alert, oriented 3. Pleasant, well groomed, interactive. HEAD: Normocephalic, atraumatic ENT: Mucous membranes moist, oropharynx unremarkable, External ear exam unremarkable EYES: PERRL, EOMI NECK: Full ROM, no MAXINE, no menigismus CHEST/RESP: Nontender, clear to auscultation bilateral, no wheeze/rhonchi/rales CARDIOVASCULAR: RRR, no murmur, rub renata. 2+ Rad pulse bilateral ABDOMEN: Soft, nontender, no mass. +Bowel sounds Back: Right mid thoracic paraspinous muscular spasm present, no midline step-off or deformity EXT: Full ROM, no edema, no rash Neuro: Grossly normal neurologic exam, conversant, interactive. Psych: Speech fluent, thoughts congruent, affect normal Course Vital Signs Vital signs: Vital Signs Temperature 36.4 C L 03/23/20 10:52 Pulse 69 03/23/20 10:52 Blood Pressure 125/73 03/23/20 10:52 Pulse Oximetry 97 03/23/20 10:52 Temperature 36.4 C L 03/23/20 10:52 Temperature Source Temporal Artery Scan 03/23/20 10:52 Pulse 69 03/23/20 10:52 Respiratory Effort Non-Labored 03/23/20 10:54 Blood Pressure 125/73 03/23/20 10:52 Blood Pressure Position Sitting 03/23/20 10:52 Pulse Oximetry 97 03/23/20 10:52 Oxygen Delivery Method Room Air 03/23/20 10:52 Oxygen Flow Rate 0 03/23/20 10:52 Pain Level 9 03/23/20 10:52
[2020-03-23] MEDS: Methocarbamol 500 MG TAB 1000 MG PO (11:23)
[2020-03-23] MEDS: Lidocaine 5% Patch 1 PATCH TP (11:23)
== END 2020-03-23 11:42 | disposition home or self-care (01) ==
PROVIDERS: Emergency Provider Emergency Medicine; PCP Family Medicine
DX: M62.830 Muscle spasm of back (principal); Y93.H1 Activity, digging, shoveling and raking; X50.9XXA Other and unspecified overexertion or strenuous movements or postures, initial encounter
CPT/HCPCS: 99283

== ENCOUNTER 2020-03-26 05:54 | Emergency (ER) | payer MEDICAID, SELFPAY ==
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
[2020-03-26 06:00] VITALS: BP 121/78; PULSE 91; RESP 18; TEMP 36.7; O2SAT 99
[2020-03-26] MEDS: Benzocaine 20% Gel 30 GM JAR MM (06:31)
== END 2020-03-26 06:33 | disposition home or self-care (01) ==
PROVIDERS: Emergency Provider Emergency Medicine; PCP Family Medicine
DX: R68.84 Jaw pain (principal); K03.81 Cracked tooth; K08.89 Other specified disorders of teeth and supporting structures
CPT/HCPCS: 99282; 99283

== ENCOUNTER 2020-09-18 12:44 | Emergency (ER) | payer MEDICAID, SELFPAY ==
[2020-09-18 12:51] VITALS: BP 107/69; PULSE 60; RESP 17; TEMP 36.4; O2SAT 97
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
[2020-09-18] MEDS: Lidocaine 5% Patch 1 PATCH TP (13:29)
== END 2020-09-18 13:33 | disposition home or self-care (01) ==
PROVIDERS: Emergency Provider Physician Assistant; PCP Family Medicine
DX: M54.2 Cervicalgia (principal); M62.838 Other muscle spasm
CPT/HCPCS: 99283

== ENCOUNTER 2020-12-06 02:59 | Outpatient (CLI) | payer MEDICAID, SELFPAY ==
--- NOTE | 2020-12-06 08:30 | RT.EKG_ITS ---
APPROVED REPORT Exam: Resting ECG Reason for Exam: high risk med Patient Location: O HR:61 bpm ECG Measurements Heart Rate 61 AXIS AZ 166 P 11 QRSd 81 QRS 67 QT 401 T 28 QTc 405 Conclusion Sinus rhythm...normal P axis, V-rate 60- 99 Normal Electrocardiogram
== END 2020-12-06 03:00 | disposition home or self-care (01) ==
LOC: RT 02:59
PROVIDERS: PCP Family Medicine; Visit Provider Family Medicine
DX: Z51.81 Encounter for therapeutic drug level monitoring (principal)
CPT/HCPCS: 93005; 93010

== ENCOUNTER 2020-12-23 17:19 | Emergency (ER) | payer MEDICAID, SELFPAY ==
[2020-12-23 17:24] VITALS: BP 126/85; PULSE 72; RESP 18; TEMP 36.4; O2SAT 98
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
[2020-12-23] MEDS: diphenhydrAMINE 50 MG/ML VIAL 25 MG IVP (18:18)
[2020-12-23] MEDS: Normal Saline 1,000 ML 1000 ML IV (18:19)
[2020-12-23] MEDS: Ondansetron 4 MG/2 ML VIAL IVP (18:19)
[2020-12-23] MEDS: Ketorolac 15 MG/ML VIAL IVP (18:19)
[2020-12-24 02:43] VITALS: BP 128/72; PULSE 66; RESP 18; TEMP 36.9; O2SAT 98
[2020-12-25 22:18] LABS: COVID-19 RT-PCR UVMMC Result Positive (Negative)
--- NOTE | 2020-12-25 22:21 | W.ED.FU ---
Date of service: 12/25/20 Time of Service: 22:21 Follow Up Plan: 2221: Critical result received from lab positive Covid. Attempted to give patient a phone call with met with busy signal. We will send a letter and or refer to care management for follow-up.
--- NOTE | 2020-12-26 04:29 | NUR.NOTE ---
Provider Emma Burns attemped to call patient with Covid test results. Unable to reach patient and no message options. Will try again 12/26/20.Nursing Note:
--- NOTE | 2020-12-26 10:18 | W.ED.FU ---
Attempted to call patient once again to let him know about his Covid positive status, unable to get through. Will send letter with results.
--- NOTE | 2020-12-26 10:43 | NUR.NOTE ---
Nursing Note: Positive COVID result was mailed to patient. Providers Ángel and Grant were unable to get in touch with the patient via phone. Cathleen Cm
== END 2020-12-23 20:25 | disposition home or self-care (01) ==
PROVIDERS: Emergency Provider Registered Nurse Emergency; PCP Family Medicine
DX: U07.1 COVID-19 (principal); R11.2 Nausea with vomiting, unspecified; R51.9 Headache, unspecified
CPT/HCPCS: 87880; 96361; 96374; 96375; 99284; U0003; J1200; J1885; J2405

== ENCOUNTER 2021-05-05 18:21 | Emergency (ER) | payer MEDICAID, SELFPAY ==
[2021-05-05] VITALS (8 sets, daily range): BP systolic 97–106; BP diastolic 53–90; PULSE 61–82; RESP 11–19; TEMP 36.7; O2SAT 96–99
--- NOTE | 2021-05-05 18:15 | RT.EKG_ITS ---
APPROVED REPORT Exam: Resting ECG Reason for Exam: chest pain Patient Location: E HR:62 bpm ECG Measurements Heart Rate 62 AXIS OK 170 P 46 QRSd 78 QRS 53 QT 369 T 18 QTc 376 Conclusion Sinus rhythm...normal P axis, V-rate 60- [address] changes
--- NOTE | 2021-05-05 18:45 | DI.RAD_ITS ---
Exam(s) XR CHEST 2V PA LATERAL EXAM: XR CHEST 2V PA LATERAL CLINICAL HISTORY: L chest pain, now improved. TECHNIQUE: 2D digital imaging was performed. COMPARISON: CR,XR XR PORTABLE CHEST AP from 08/10/2019 FINDINGS: 2 views: Heart size is normal. The mediastinum is not widened. Lungs are clear. No infiltrates nor pleural effusions. IMPRESSION: No acute pulmonary findings. DATA REPOSITORY: RADIATION DOSE DELIVERED:
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
[2021-05-05 19:22] LABS: Abs Immature Grans 0.02 10^3/uL (0.0-0.06); Absolute Basophil Count 0.07 10^3/uL (0.0-0.2); Absolute Eosinophil Count 0.24 10^3/uL (0.0-0.7); Absolute Lymphocyte Count 3.72 10^3/uL (1.2-3.4); Absolute Monocyte Count 0.51 10^3/uL (0.1-0.8); Absolute Neutrophil Count 5.31 10^3/uL (1.2-6.7); Basophils % 0.7; Eosinophils % 2.4; HCT 38.4 % (40.0-50.0); Immature Grans % 0.2; Lymphocytes % 37.7; MCH 30.5 pg (27.0-33.0); MCHC 33.9 % (32.0-36.0); MCV 90.1 fL (80-95); MPV 9.4 fL (8.0-11.0); Monocytes % 5.2; Neutrophils % 53.8; Nucleated RBC 0 %; Platelet Count 318 10^3/uL (130-400); RBC 4.26 10^6/uL (4.36-5.78); RDW 11.4 % (11.8-14.1); RDW-SD 37.9 fL; WBC 9.87 10^3/uL (4.4-10.8)
[2021-05-05 19:39] LABS: ALT 43 U/L (16-63); AST 17 U/L (15-37); Albumin 4.3 g/dL (3.4-5.0); Alkaline Phosphatase 78 U/L (46-116); Anion Gap 6.8 mmol/L (3-11); BUN 15 mg/dL (7-18); Bilirubin, Total 0.8 mg/dL (0.2-1.0); CO2 31.2 mmol/L (21.0-32.0); Calcium 8.8 mg/dL (8.5-10.1); Chloride 101 mmol/L (98-107); Glucose 98 mg/dL (74-106); Magnesium 1.9 mg/dL (1.8-2.4); Potassium 3.5 mmol/L (3.5-5.1); Sodium 139 mmol/L (136-145); Total Protein 7.6 g/dL (6.4-8.2); Troponin I < 50 ng/L (<or=60)
[2021-05-05 20:02] LABS: D-Dimer 344 ng/mlFEU (<500)
--- NOTE | 2021-05-05 20:43 | DI.VRAD_ITS ---
PROCEDURE INFORMATION: Exam: XR Chest Exam date and time: 05/05/2021 7:59 PM Age: 31 years old Clinical indication: Pain; Chest pressure TECHNIQUE: Imaging protocol: XR of the chest. Views: 2 views. COMPARISON: XR PORTABLE CHEST AP 08/10/2019 7:27 PM FINDINGS: Lungs: There is no evidence of focal pulmonary consolidation. The pulmonary vasculature is normal. Pleural spaces: There is no evidence of pneumothorax. There are no pleural effusions present. Heart/Mediastinum: The cardiac silhouette is within normal limits. The mediastinum is normal. Bones/joints: The spine, sternum, ribs, and pectoral girdles show no evidence of acute abnormality Other findings: There are no soft tissue masses or calcifications. IMPRESSION: No active cardiopulmonary disease . Dictated and Authenticated by: Stuart Wilkinson MD. Ordering:NIURKA Benitez MD
== END 2021-05-05 20:25 | disposition home or self-care (01) ==
PROVIDERS: Emergency Provider Emergency Medicine; PCP Family Medicine
DX: R07.89 Other chest pain (principal); Z86.711 Personal history of pulmonary embolism
CPT/HCPCS: 36415; 80053; 93005; 99284; 71046; 83735; 84484; 85025; 85379; 93010; 99283

== ENCOUNTER 2022-05-24 15:09 | Outpatient (REF) | payer MEDICAID, SELFPAY ==
[2022-05-24 21:07] LABS: Abs Immature Grans 0.02 10^3/uL (0.0-0.06); Absolute Basophil Count 0.05 10^3/uL (0.0-0.2); Absolute Eosinophil Count 0.02 10^3/uL (0.0-0.7); Absolute Lymphocyte Count 3.14 10^3/uL (1.2-3.4); Absolute Monocyte Count 0.44 10^3/uL (0.1-0.8); Absolute Neutrophil Count 4.22 10^3/uL (1.2-6.7); Basophils % 0.6; Eosinophils % 0.3; HCT 36.6 % (40.0-50.0); HGB 12.2 g/dL (13.5-17.5); Immature Grans % 0.3; Lymphocytes % 39.8; MCH 30.3 pg (27.0-33.0); MCHC 33.3 % (32.0-36.0); MCV 91 fL (80-95); MPV 9.7 fL (8.0-11.0); Monocytes % 5.6; Neutrophils % 53.4; Platelet Count 289 10^3/uL (130-400); RBC 4.03 10^6/uL (4.36-5.78); RDW-SD 40.4 fL; WBC 7.89 10^3/uL (4.4-10.8)
[2022-05-24 21:33] LABS: ALT 26 U/L (16-63); AST 18 U/L (15-37); Albumin 4.1 g/dL (3.4-5.0); Alkaline Phosphatase 68 U/L (46-116); Anion Gap 5.4 mmol/L (3-11); BUN 13 mg/dL (7-18); Bilirubin, Total 0.3 mg/dL (0.2-1.0); CO2 31.6 mmol/L (21.0-32.0); Calcium 9.2 mg/dL (8.5-10.1); Chloride 107 mmol/L (98-107); Estimated GFR 101.28 (mL/min/1.73m2); Glucose 92 mg/dL (74-106); Sodium 144 mmol/L (136-145); TSH (W/Ref FT4) 0.92 uIU/mL (0.36-3.74); Total Protein 6.9 g/dL (6.4-8.2)
== END 2022-05-24 15:10 | disposition home or self-care (01) ==
LOC: NCHCN 15:09
PROVIDERS: PCP Family Medicine; Visit Provider Family Medicine
DX: F41.8 Other specified anxiety disorders (principal); F19.10 Other psychoactive substance abuse, uncomplicated
CPT/HCPCS: 80053; 84443; 85025

== ENCOUNTER 2023-02-18 15:28 | Emergency (ER) | payer MEDICAID, SELFPAY ==
--- NOTE | 2023-02-18 15:30 | RT.EKG_ITS ---
APPROVED REPORT Exam: Resting ECG Reason for Exam: chest pain Patient Location: E HR:74 bpm ECG Measurements Heart Rate 74 AXIS GA 136 P 3 QRSd 77 QRS 43 QT 403 T 17 QTc 447 Conclusion Sinus rhythm normal axis There are no significant changes compared to prior EKG performed on 05/05/2021 at 18:45.
[2023-02-18 15:32] VITALS: BP 131/72; PULSE 77; RESP 18; TEMP 37.6; O2SAT 98
--- NOTE | 2023-02-18 15:45 | DI.RAD_ITS ---
Exam(s) XR PORTABLE CHEST AP EXAM: XR PORTABLE CHEST AP CLINICAL HISTORY: chest pain TECHNIQUE: 2D digital imaging was performed of the chest. One image was obtained. An AP view was ob tained. COMPARISON: No exams were available for comparison FINDINGS: MEDIASTINUM: Normal. HEART: Normal. PULMONARY VASCULATURE: Normal. LUNGS: Clear. PLEURAL SPACE: No pleural effusion or pneumothorax. BONE:Within normal limits for the patient's age. OTHER FINDINGS:Normal. IMPRESSION: No acute pulmonary findings. DATA REPOSITORY: RADIATION DOSE DELIVERED:
--- NOTE | 2023-02-18 15:54 | ED.GENADUL_ITS ---
Discharge Plan Disposition Patient Disposition: Home Condition: Good Discharge Details Clinical Impression: Atypical chest pain Primary Care Provider: Allegra Muñiz ED Provider: Victor Hugo Campbell Discharge Instructions Instructions: Chest Pain (ED) Additional Instructions: ED work up within normal limits. monitor symptoms and return to PCP with any concerns Medical Decision Making Emergent evaluation of chest pain. Pain is atypical,. Low likelihood for cardiac etiology. Has no risk factors for cardiac etiology. No sick symptoms. Vital signs normal. EKG without acute ischemic changes. Blood work obtained. This was unremarkable. CBC without leukocytosis or significant anemia. Troponin negative. Chest x-ray reviewed and independently interpreted, no acute findings. Patient will be discharged home. At reevaluation, he reports that he has no symptoms. Recommend following up with primary care provider if symptoms persist or return Medical Records Medical records reviewed: Yes I reviewed the patient's medical records. Lab Data Lab results reviewed: Yes I reviewed the patient's lab results. ECG Data Attestation: I personally reviewed and interpreted this ECG (s) as follows: Prior ECG tracings: available for review Interpretation: Sinus 74, normal axis, normal ST segments, no acute change from prior HPI General Date/Time Provider Initiated Documentation: 02/18/23 15:50 . Limitations to Documentation: no limitations . Information obtained by: patient . HPI Narrative: 33-year-old gentleman without significant past medical history presents for evaluation of chest pain. Reports is left-sided pressure. Does not radiate. Not associated with nausea, diaphoresis or shortness of breath. Started at rest while sitting with family members. He reports that he feels anxious. Smokes marijuana, not tobacco. On daily Suboxone for 10 years. Children are sick with RSV. Related Data Allergies Allergy/AdvReac Type Severity Reaction Status Date / Time levofloxacin [From Levaquin] Allergy Severe HIVES Unverified 05/05/21 18:51 General Stated Complaint: Chest Pain ELLIS: 2 PFSH All Active Problems Nausea & vomiting (Acute) Headache (Acute) Muscle spasm (Acute) Acute neck pain (Acute) Atypical chest pain (Acute) Chest pain, pleuritic (Acute) Medical History Pulmonary embolism Surgical History No significant past surgical history Social History Smoking/Tobacco Use Status: Never Smoking risk assessment performed?: Yes Alcohol Intake: never Drug use: Daily Substance use type: marijuana Details: Methadone clinic Do you feel safe at home: Yes Do you feel safe in your relationship?: Yes Exam Narrative Exam Narrative: Review of Systems: All systems reviewed & are unremarkable except as noted in HPI and below Well-developed, no acute distress NACT PERRL, normal conjunctiva RRR, chest wall nontender Unlabored respiratory effort, breath sounds clear bilaterally Nondistended abdomen Extremities w/o deformity, no cyanosis, no edema No rashes or lesions. no focal neurologic deficits Appropriate mood and affect Course Vital Signs Vital signs: Vital Signs Temperature 37.6 C H 02/18/23 15:32 Pulse 77 02/18/23 15:32 Respiratory Rate 18 02/18/23 15:32 Blood Pressure 131/72 02/18/23 15:32 Pulse Oximetry 98 02/18/23 15:32 Temperature 37.6 C H 02/18/23 15:32 Temperature Source Oral 02/18/23 15:32 Pulse 77 02/18/23 15:32 Respiratory Rate 18 02/18/23 15:32 Blood Pressure 131/72 02/18/23 15:32 Blood Pressure Position Sitting 02/18/23 15:32 Pulse Oximetry 98 02/18/23 15:32 Oxygen Delivery Method Room Air 02/18/23 15:32 Oxygen Flow Rate 0 02/18/23 15:32
[2023-02-18 16:04] LABS: Abs Immature Grans 0.04 10^3/uL (0.0-0.06); Absolute Eosinophil Count 0.09 10^3/uL (0.0-0.7); Absolute Lymphocyte Count 1.66 10^3/uL (1.2-3.4); Basophils % 0.4; Eosinophils % 0.8; HCT 39.3 % (40.0-50.0); HGB 13.1 g/dL (13.5-17.5); Immature Grans % 0.4; Lymphocytes % 14.7; MCH 30.8 pg (27.0-33.0); MCHC 33.3 % (32.0-36.0); MCV 92 fL (80-95); MPV 9.4 fL (8.0-11.0); Monocytes % 7.1; Neutrophils % 76.6; Platelet Count 267 10^3/uL (130-400); RBC 4.26 10^6/uL (4.36-5.78); RDW 11.6 % (11.8-14.1); RDW-SD 39.4 fL; WBC 11.32 10^3/uL (4.4-10.8)
[2023-02-18 16:12] LABS: Absolute Basophil Count 0.05 10^3/uL (0.0-0.2); Absolute Neutrophil Count 8.67 10^3/uL (1.2-6.7)
[2023-02-18 16:26] LABS: ALT 32 U/L (16-63); AST 14 U/L (15-37); Albumin 4.6 g/dL (3.4-5.0); Alkaline Phosphatase 88 U/L (46-116); Anion Gap 9.9 mmol/L (3-11); BUN 17 mg/dL (7-18); Bilirubin, Total 0.9 mg/dL (0.2-1.0); CO2 30.1 mmol/L (21.0-32.0); CREATININE 1.1 mg/dL (0.70-1.30); Calcium 9.4 mg/dL (8.5-10.1); Chloride 101 mmol/L (98-107); Estimated GFR 89.78 (mL/min/1.73m2); Glucose 86 mg/dL (74-106); Magnesium 1.8 mg/dL (1.8-2.4); Potassium 3.5 mmol/L (3.5-5.1); Sodium 141 mmol/L (136-145); Total Protein 8.4 g/dL (6.4-8.2)
[2023-02-18 16:27] LABS: Troponin I < 50 ng/L (<or=60)
--- NOTE | 2023-02-18 17:20 | DI.VRAD_ITS ---
PROCEDURE INFORMATION: Exam: XR Chest Exam date and time: 02/18/2023 4:18 PM Age: 33 years old Clinical indication: Other: Chest pain TECHNIQUE: Imaging protocol: Radiologic exam of the chest. Views: 1 view. COMPARISON: CR XR CHEST 2V PA LATERAL 05/05/2021 7:59 PM FINDINGS: Lungs: The lungs are clear. There is no pulmonary vascular congestion. Pleural spaces: There are no pleural effusions present. There is no evidence of pneumothorax. Heart/Mediastinum: The cardiomediastinal silhouette is within normal limits. Bones/joints: Unremarkable. IMPRESSION: No active cardiopulmonary disease identified. Dictated and Authenticated by: Marlon Daniels MD. Ordering:JonahFADY Rm MD
== END 2023-02-18 16:55 | disposition home or self-care (01) ==
PROVIDERS: Emergency Provider Emergency Medicine; PCP Family Medicine
DX: R07.89 Other chest pain (principal); F41.9 Anxiety disorder, unspecified; Z86.711 Personal history of pulmonary embolism
CPT/HCPCS: 80053; 93005; 99284; 71045; 83735; 84484; 85025; 93010; 99283

== ENCOUNTER 2023-03-12 17:37 | Emergency (ER) | payer MEDICAID, SELFPAY ==
[2023-03-12 17:41] VITALS: BP 114/70; PULSE 72; TEMP 37.2; O2SAT 97
[2023-03-12 17:43] VITALS: BP 114/70; PULSE 72; TEMP 37.2; O2SAT 97
--- NOTE | 2023-03-12 18:00 | W.ED.GENAD ---
HPI General Mode of arrival: ambulatory. Date/Time Provider Initiated Documentation: 03/12/23 17:37. Limitations to Documentation: no limitations. Information obtained by: patient. HPI Narrative: 33-year-old male here with dental infection. Patient notes tooth pain over the past few days. Pain localized to right lower molar. Patient denies associated fever. Related Data Home Medications Medication Instructions Recorded Confirmed penicillin V potassium 500 mg 500 mg PO QID #40 tabs 03/12/23 tablet Previous Rx's Medication Instructions Recorded penicillin V potassium 500 mg 500 mg PO QID #40 tabs 03/12/23 tablet Allergies Allergy/AdvReac Type Severity Reaction Status Date / Time levofloxacin [From Levaquin] Allergy Severe HIVES Unverified 05/05/21 18:51 General Stated Complaint: DentalOral ELLIS: 4 Review of Systems Constitutional Constitutional: Denies fever(s) ENT Ears, Nose, Mouth, and Throat: Reports as per HPI Exam Const General: cooperative and no acute distress HENMT Head: normocephalic Mouth: moist mucous membranes and no trismus Teeth and gingiva: other (chronic fracture tooth rt lower molar, no fluctuance along gumline ) Throat: posterior oropharynx normal Neck Neck: trachea midline and supple Neuro General: patient alert, patient awake and tone normal Course Vital Signs Vital signs: Vital Signs Temperature 37.2 C 03/12/23 17:41 Pulse 72 03/12/23 17:41 Blood Pressure 114/70 03/12/23 17:41 Pulse Oximetry 97 03/12/23 17:41 Temperature 37.2 C 03/12/23 17:43 Temperature Source Oral 03/12/23 17:43 Pulse 72 03/12/23 17:43 Respiratory Effort Normal, Non-Labored 03/12/23 17:43 Blood Pressure 114/70 03/12/23 17:43 Blood Pressure Position Sitting 03/12/23 17:43 Pulse Oximetry 97 03/12/23 17:43 Oxygen Delivery Method Room Air 03/12/23 17:43 Pain Level 6 03/12/23 17:43 Medical Decision Making 33-year-old male here with dental pain, suspect dental infection. No drainable abscess on examination. Plan to initiate treatment with antibiotics. Usual customary discharge instructions reviewed the patient. He understands importance of timely follow-up with dentist and to return for any worsening or new concerning symptoms. Quality:[facility] Related Social Needs: No Data to Display PFSH All Active Problems (Updated 03/12/23 @ 18:02 by Bill Dent MD) Dental infection (Acute) Nausea & vomiting (Acute) Headache (Acute) Muscle spasm (Acute) Acute neck pain (Acute) Atypical chest pain (Acute) Chest pain, pleuritic (Acute) Medical History Pulmonary embolism Surgical History No significant past surgical history Social History Smoking/Tobacco Use Status: Never Smoking risk assessment performed?: Yes Alcohol Intake: never Drug use: Daily Substance use type: marijuana Details: Methadone clinic Do you feel safe at home: Yes Do you feel safe in your relationship?: Yes Discharge Plan Disposition Patient Disposition: Home Condition: Stable Discharge Details Clinical Impression: Dental infection Primary Care Provider: Allegra Muñiz ED Provider: Bill Dent Home Meds and New Rx's Prescriptions: New penicillin V potassium 500 mg tablet 500 mg PO QID Qty: 40 0RF Discharge Instructions Instructions: Dental Abscess (ED) Additional Instructions: Please take full course of antibiotic as prescribed. Please take ibuprofen over the counter. Take 600mg by mouth every 6 hours as needed for pain. Please take acetaminophen (tylenol) - 650mg every 6 hours by mouth as needed for pain. Please follow-up with your dentist. Call tomorrow to schedule follow-up. Referrals: Allegra Muñiz [Primary Care Provider] - Discharge Data Discharge Date/Time-TO BE ENTERED AT DEPARTURE: 03/12/23 18:20
== END 2023-03-12 18:20 | disposition home or self-care (01) ==
PROVIDERS: Emergency Provider Student in an Organized Health Care Education/Training Program; PCP Family Medicine
DX: K04.7 Periapical abscess without sinus (principal)
CPT/HCPCS: 99283

== ENCOUNTER 2023-03-22 08:57 | Emergency (ER) | payer MEDICAID, SELFPAY ==
--- NOTE | 2023-03-22 09:00 | RT.EKG_ITS ---
APPROVED REPORT Exam: Resting ECG Reason for Exam: SOB Patient Location: E HR:65 bpm ECG Measurements Heart Rate 65 AXIS WA 151 P 29 QRSd 70 QRS 43 QT 426 T 25 QTc 444 Conclusion Sinus rhythm...normal P axis, V-rate 60- 99 sinus rhythm, normal axis, normal intervals, no hyptertrophy, non ischemic
[2023-03-22 09:04] VITALS: BP 107/73; PULSE 78; RESP 18; TEMP 36.8; O2SAT 97
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
--- NOTE | 2023-03-22 09:36 | DI.RAD_ITS ---
Exam(s) XR CHEST 2V PA LATERAL EXAM: XR CHEST 2V PA LATERAL CLINICAL HISTORY: CP, SOB TECHNIQUE: 2D digital imaging was performed of the chest. Two images were obtained. PA and lateral views were obtained. COMPARISON: CR,XR XR CHEST 2V PA LATERAL from 05/05/2021 CR,XR XR PORTABLE CHEST AP from 02/18/2023 FINDINGS: MEDIASTINUM: Normal. HEART: Normal. PULMONARY VASCULATURE: Normal. LUNGS: There is a new infiltrate with air bronchograms in the medial aspect of the left upper lobe. PLEURAL SPACE: No pleural effusion or pneumothorax. BONE:Within normal limits for the patient's age. OTHER FINDINGS:Normal. IMPRESSION: New left upper lobe pneumonia. DATA REPOSITORY: RADIATION DOSE DELIVERED:
[2023-03-22 10:11] LABS: D-Dimer 934 ng/mlFEU (<500)
--- NOTE | 2023-03-22 10:15 | DI.CT_ITS ---
Exam(s) CT CHEST PE CTA EXAM: CT CHEST PE CTA CLINICAL HISTORY: Elevated Dimer, Chest pain. TECHNIQUE: Imaging Protocol: Axial CT angiography was performed with multi-slice acquisition and mu lti-planar and/or 3D reconstructions. CONTRAST MATERIAL: Intravenous: Omnipaque 350 contrast volume:100 mL COMPARISON: CT CHEST FOR PULMONARY EMBOLUS from 09/15/2015 CT CHEST FOR PULMONARY EMBOLUS from 09/16/2015 CR,XR XR PORTABLE CHEST AP from 02/18/2023 CR XR CHEST 2V PA LATERAL from 03/22/2023 FINDINGS: Tracheobronchial tree: Patent where visualized. Pulmonary parenchyma: There is a 4 mm nodule in the right upper lobe (series 7, image 221). There is a 1 cm ground-glass nodule in the left lower lobe (series 7, image 331). There is an opacity in the medial posterior aspect of the left upper lobe with air bronchograms present. There is a 4 mm nodul e in the left upper lobe (series 7, image 212). No architectural distortion. Pulmonary Arteries: No evidence of filling defect to suggest pulmonary emboli. Mediastinum and [place]: There are mildly enlarged lymph nodes seen in the left hilum. The esophagus is unremarkable. Visualized thyroid gland: Unremarkable. Pleura: No effusion or pneumothorax. Heart: The heart is not dilated. No coronary artery calcifications are seen. No pericardial effusion. Aorta: Thoracic aorta non-dilated. No evidence of dissection. Upper abdomen: Unremarkable. Soft tissues: Unremarkable. Bones: Within normal limits for the patient's age. IMPRESSION: 1. No evidence of pulmonary embolism, thoracic aortic dissection or aneurysm. 2. Opacity seen in the left upper lobe with air bronchograms most suggestive of a pneumonia. 3. Noncalcified pulmonary nodule seen in the lungs as described above the. There are 3 nodules ident ified. These may be inflammatory/infectious nodules. 4. Mildly enlarged mediastinal lymph nodes which are likely reactive. 5. Please correlate with the patient's clinical symptoms for evidence of infection. A repeat chest x- ray or CT scan is suggested to document complete resolution. 6. Findings were discussed with the Emma Burns at 12:12 p.m. on 03/22/2023. RADIATION DOSE DELIVERED: 400.27mGy.cm Total DLP DATA REPOSITORY: All CT scans at this facility are submitted to the National Radiology Data Registry (NRDR) Dose Index Registry (DIR) with the [employer] (A[employer]). RADIATION OPTIMIZATION: All CT scans at this facility use at least one of these dose optimization te chniques: automated exposure control; mA and/or kV adjustment per patient size (includes targeted exa ms where dose is matched to clinical indication); or iterative reconstruction.
[2023-03-22 10:30] LABS: Abs Immature Grans 0.05 10^3/uL (0.0-0.06); Absolute Basophil Count 0.04 10^3/uL (0.0-0.2); Absolute Lymphocyte Count 2.43 10^3/uL (1.2-3.4); Absolute Monocyte Count 0.83 10^3/uL (0.1-0.8); Basophils % 0.3; Eosinophils % 0.7; HCT 33.2 % (40.0-50.0); HGB 11.1 g/dL (13.5-17.5); Immature Grans % 0.4; Lymphocytes % 18.2; MCH 30.4 pg (27.0-33.0); MCHC 33.4 % (32.0-36.0); MCV 91 fL (80-95); MPV 8.9 fL (8.0-11.0); Monocytes % 6.2; Neutrophils % 74.2; Platelet Count 360 10^3/uL (130-400); RBC 3.65 10^6/uL (4.36-5.78); RDW 11.2 % (11.8-14.1); RDW-SD 37.7 fL; WBC 13.35 10^3/uL (4.4-10.8)
[2023-03-22 10:31] LABS: Absolute Eosinophil Count 0.09 10^3/uL (0.0-0.7); Absolute Neutrophil Count 9.91 10^3/uL (1.2-6.7)
[2023-03-22 11:06] LABS: ALT 20 U/L (16-63); AST 13 U/L (15-37); Albumin 3.3 g/dL (3.4-5.0); Alkaline Phosphatase 108 U/L (46-116); Anion Gap 5.5 mmol/L (3-11); BUN 15 mg/dL (7-18); Bilirubin, Total 0.4 mg/dL (0.2-1.0); CO2 32.5 mmol/L (21.0-32.0); CREATININE 0.9 mg/dL (0.70-1.30); Calcium 9.4 mg/dL (8.5-10.1); Chloride 101 mmol/L (98-107); Estimated GFR 114.22 (mL/min/1.73m2); Glucose 86 mg/dL (74-106); Potassium 4.5 mmol/L (3.5-5.1); Sodium 139 mmol/L (136-145); Total Protein 7.4 g/dL (6.4-8.2)
[2023-03-22] MEDS: Ketorolac 15 MG/ML VIAL IVP (11:28)
[2023-03-22] MEDS: Omnipaque 350 MG/ML 500 ML BTL-Imaging package IJ (11:41)
[2023-03-22] MEDS: cefTRIAXone 1 GM/50 ML BAG IVPB (12:42)
[2023-03-22] MEDS: Doxycycline Hyclate 100 MG CAP PO (12:42)
== END 2023-03-22 13:20 | disposition home or self-care (01) ==
PROVIDERS: Emergency Provider Registered Nurse Emergency; PCP Family Medicine
DX: J18.9 Pneumonia, unspecified organism (principal); Z86.711 Personal history of pulmonary embolism; R91.8 Other nonspecific abnormal finding of lung field
CPT/HCPCS: 36415; 71275; 80053; 93005; 96365; 96375; 99285; 71046; 85025; 85379; 93010; 99284; J0696; J1885

== ENCOUNTER 2023-03-31 09:47 | Emergency (ER) | payer MEDICAID, SELFPAY ==
[2023-03-31 10:01] VITALS: BP 132/70; PULSE 90; RESP 16; TEMP 37.1; O2SAT 97
[2023-03-31 10:09] VITALS: BP 132/70; PULSE 90; RESP 16; TEMP 37.1; O2SAT 97
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
[2023-03-31 11:01] LABS: Abs Immature Grans 0.08 10^3/uL (0.0-0.06); Absolute Basophil Count 0.06 10^3/uL (0.0-0.2); Absolute Lymphocyte Count 2.29 10^3/uL (1.2-3.4); Absolute Neutrophil Count 10.83 10^3/uL (1.2-6.7); Basophils % 0.4; Eosinophils % 1.3; HGB 10.9 g/dL (13.5-17.5); Immature Grans % 0.6; Lymphocytes % 15.9; MCH 30.5 pg (27.0-33.0); MCV 92 fL (80-95); MPV 9.6 fL (8.0-11.0); Monocytes % 6.5; Neutrophils % 75.3; Platelet Count 378 10^3/uL (130-400); RBC 3.57 10^6/uL (4.36-5.78); RDW 11.4 % (11.8-14.1); RDW-SD 38.9 fL; WBC 14.38 10^3/uL (4.4-10.8)
[2023-03-31 11:06] LABS: Absolute Eosinophil Count 0.19 10^3/uL (0.0-0.7); Absolute Monocyte Count 0.93 10^3/uL (0.1-0.8)
[2023-03-31 11:15] LABS: INR 1.1 (0.9-1.1); PTT Activated 29.2 sec (23.6-32.8); Prothrombin Time 10.6 sec (9.1-11.1)
[2023-03-31 11:27] LABS: ALT 40 U/L (16-63); AST 25 U/L (15-37); Albumin 2.9 g/dL (3.4-5.0); Alkaline Phosphatase 124 U/L (46-116); Anion Gap 7.1 mmol/L (3-11); BUN 12 mg/dL (7-18); Bilirubin, Total 0.3 mg/dL (0.2-1.0); CO2 30.9 mmol/L (21.0-32.0); CREATININE 0.8 mg/dL (0.70-1.30); Calcium 9.1 mg/dL (8.5-10.1); Chloride 103 mmol/L (98-107); Estimated GFR 118.36 (mL/min/1.73m2); Glucose 96 mg/dL (74-106); Potassium 3.8 mmol/L (3.5-5.1); Sodium 141 mmol/L (136-145); Total Protein 7.3 g/dL (6.4-8.2)
[2023-03-31] MEDS: Omnipaque 350 MG/ML 100 ML BTL IJ (11:30)
--- NOTE | 2023-03-31 11:31 | DI.CT_ITS ---
Exam(s) CT CHEST W EXAM: CT CHEST W CLINICAL HISTORY: left upper chest pain, pleuritic; mass v pneumonia TECHNIQUE: Imaging Protocol: Axial computed tomography images with coronal and sagittal reformatted images were created and reviewed CONTRAST MATERIAL: Intravenous: Omnipaque 350 Contrast volume:structured data ml. COMPARISON: CT CHEST FOR PULMONARY EMBOLUS from 09/16/[address] CHEST PE CTA from 03/22/2023 CR XR CHEST 2V PA LATERAL from 03/22/2023 FINDINGS: Pulmonary parenchyma: Mild increase in size of previously noted area of consolidation in the medial l eft upper lobe. No dominant measurable mass. Tracheobronchial tree: No bronchiectasis or mucous plugging. Mediastinum and [place]: Small AP window lymph nodes, consistent with reactive lymph nodes. Pleura: No effusion. No pneumothorax. Heart: The heart is not dilated. No coronary artery calcifications are seen. Aorta: Thoracic aorta non-dilated. Mild atherosclerotic changes. Upper abdomen: No acute findings.. Bones: Degenerative changes in the spine. Soft tissues: Unremarkable. IMPRESSION: Mild interval increase in size of left upper lobe infiltrate. The findings likely represent pneumoni a. Follow-up recommended. RADIATION DOSE DELIVERED: Total DLP DATA REPOSITORY: All CT scans at this facility are submitted to the National Radiology Data Registry (NRDR) Dose Index Registry (DIR) with the [employer] (ACR). RADIATION OPTIMIZATION: All CT scans at this facility use at least one of these dose optimization te chniques: automated exposure control; mA and/or kV adjustment per patient size (includes targeted exa ms where dose is matched to clinical indication); or iterative reconstruction.
--- NOTE | 2023-03-31 12:17 | DI.VRAD_ITS ---
PROCEDURE INFORMATION: Exam: CT Chest With Contrast; Diagnostic Exam date and time: 03/31/2023 11:28 AM Age: 33 years old Clinical indication: Other: Chest pain TECHNIQUE: Imaging protocol: Diagnostic computed tomography of the chest with contrast. Radiation optimization: All CT scans at this facility use at least one of these dose optimization techniques: automated exposure control; mA and/or kV adjustment per patient size (includes targeted exams where dose is matched to clinical indication); or iterative reconstruction. Contrast material: OMNI 350; Contrast volume: 70 ml; Contrast route: INTRAVENOUS (IV); COMPARISON: CT CHEST PE CTA 03/22/2023 11:36 AM FINDINGS: Lungs: Consolidation in the left upper lobe was present on the prior CT and is consistent with pneumonia.. 4.7 mm pulmonary nodule left upper lobe series 2, image 17. 7.4 mm pulmonary nodule right middle lobe series 2, image 32. Pleural spaces: Unremarkable. No pneumothorax. No pleural effusion. Heart: Unremarkable. No cardiomegaly. No pericardial effusion. Lymph nodes: Pathologic node adjacent to the left pulmonary artery 2.4 x 1.6 cm . Vasculature: Unremarkable. No aortic aneurysm. Bones/joints: Unremarkable. No acute fracture. Soft tissues: Unremarkable. IMPRESSION: 1. Consolidation in the left upper lobe was present on the prior CT and is consistent with pneumonia.. Recommend followup studies to document resolution and rule out neoplastic process 2. Pathologic node adjacent to the left pulmonary artery 2.4 x 1.6 cm . 3. 4.7 mm pulmonary nodule left upper lobe series 2, image 17. 7.4 mm pulmonary nodule right middle lobe series 2, image 32. Dictated and Authenticated by: George Jensen MD. Ordering:SCOTT Ackerman MD
--- NOTE | 2023-03-31 13:01 | NUR.NOTE ---
Referral faxed to Pulmonary for an appointment to follow up Lung Mass vs Pneumonia sometime next week
[2023-03-31] MEDS: Azithromycin 250 MG TAB 500 MG PO (13:17)
[2023-03-31] MEDS: Amoxicillin 875/Clav. 125 TAB PO (13:17)
== END 2023-03-31 13:23 | disposition home or self-care (01) ==
PROVIDERS: Emergency Provider Emergency Medicine; PCP Family Medicine
DX: J18.9 Pneumonia, unspecified organism (principal); Z86.711 Personal history of pulmonary embolism
CPT/HCPCS: 80053; 99285; 71260; 85025; 85610; 85730; 99284; J3490

== ENCOUNTER 2023-05-13 18:59 | Emergency (ER) | payer MEDICAID, SELFPAY ==
[2023-05-13 19:17] VITALS: BP 100/57; PULSE 75; RESP 16; TEMP 37.3; O2SAT 98
== END 2023-05-13 19:53 ==
PROVIDERS: PCP Family Medicine
DX: Z53.21 Procedure and treatment not carried out due to patient leaving prior to being seen by health care provider (principal)

== ENCOUNTER 2023-11-15 17:57 | Emergency (ER) | payer SELFPAY ==
--- NOTE | 2023-11-15 17:45 | RT.EKG_ITS ---
APPROVED REPORT Exam: Resting ECG Reason for Exam: Dyspnea Patient Location: E HR:67 bpm ECG Measurements Heart Rate 67 AXIS KS 149 P 46 QRSd 76 QRS 55 QT 396 T 53 QTc 417 Conclusion Sinus rhythm. 67 normal axis no stemi
[2023-11-15 17:58] VITALS: BP 117/75; PULSE 64; RESP 14; TEMP 37
--- NOTE | 2023-11-15 18:00 | DI.CT_ITS ---
Exam(s) CT CHEST PE ABD PELVIS W EXAM: CT CHEST PE ABD PELVIS W CLINICAL HISTORY: hx of lung mass, PE, LUQ abd pain, L chest pain. TECHNIQUE: Imaging Protocol: Axial CT angiography was performed with multi-slice acquisition and m ulti-planar and/or 3D reconstructions. CONTRAST MATERIAL: Intravenous: Omnipaque 350 Contrast volume:100 ml Oral: None COMPARISON: CT CT CHEST PE CTA from 03/22/[address] CHEST W from 03/31/2023 FINDINGS: CHEST: PULMONARY ARTERIES: Less than optimal bolus timing. There are no obvious intra-arterial filling defe cts to suggest the presence of acute pulmonary emboli. LUNGS: The size of the previously present large left upper lobe partially cavitated mass-infiltrate h as significantly decreased. There are some remaining increased markings and air bronchograms in this region within the apicoposterior segment of the left upper lobe, however, this is significantly smal ler than was evident on the CT scan of 03/31/2023. There are no other significant focal left lung fi ndings nor significant right lung findings and there are no pleural effusions. No significant findin gs in the trachea and mainstem bronchi. MEDIASTINUM: Previously present left hilar adenopathy has significantly decreased. There is no subca rinal adenopathy. No adenopathy in the pretracheal region nor in the right hilum. Increased density in the anterior mediastinal triangle fat is unchanged and consistent with probable thymus remnant. Partially visualized thyroid unremarkable. CARDIAC: Heart size is normal. There is no pericardial effusion. There is no significant shift of t he interventricular septum.Caliber of thoracic aorta is within normal limits and there is no evidence of aortic dissection. OSSEOUS: No significant osseous lesions.No fractures. ABDOMEN: There is no ascites. LIVER: There are no focal hepatic lesions nor dilatation of intrahepatic ducts. GALLBLADDER/BILIARY: Gallbladder is mildly distended. There appear to be some tiny densities-probabl e calculi in the gallbladder lumen on the dependent wall. CBD diameter is upper normal-minimally pro minent. There is no obvious radiopaque calculus within the CBD.xx PANCREAS: No evidence of pancreatic mass nor dilatation of the pancreatic duct. SPLEEN: Spleen is not enlarged. There are no intrasplenic lesions. There is a calcified granuloma in the lateral aspect of the spleen. Splenic and portal veins are patent. ADRENALS: There are no significant adrenal masses. KIDNEYS:No cysts evident. No calculi nor hydronephrosis. No solid renal masses. ABDOMINAL AORTA: Abdominal aorta is not enlarged. 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 Approximately 60 perce nt stenosis evident at this level. No poststenotic dilatation seen. There is no significant stenosi s at the origin of the celiac artery. The inferior mesenteric artery is patent. There are no ischem ic appearing bowel loops. LYMPH NODES: There is no retroperitoneal or para-aortic adenopathy. ABDOMINAL WALL/GI: No evidence of significant anterior abdominal wall hernia. No bowel obstruction. PELVIS: LYMPH NODES: There is no intrapelvic nor inguinal adenopathy. GI: No evidence of appendicitis.There is no significant sigmoid diverticular disease nor diverticuli elsewhere in the colon.. No colitis pattern evident. In URINARY BLADDER: The wall the urinary bladder is uniformly thickened either related to cystitis or un dmitri distension. REPRODUCTIVE: Prostate size normal. Seminal vesicles unremarkable. OSSEOUS: No fractures. No significant osseous lesions. Sacroiliac joints appear unremarkable. Mult ilevel Schmorl's node invagination are noted in the lumbar vertebral and visualized lower thoracic ve rtebral bodies. IMPRESSION: 1. No evidence of acute pulmonary emboli nor pulmonary infarction. 2. The size of the large left upper lobe mass seen on the CT scan of March 2023 has significantly decreased. There is only mild infiltrate at this location in the apical posterior segment of the lef t upper lobe seen on the present CT study. There has also been decrease in left hilar adenopathy sin ce the prior study. No other lung findings nor pleural effusions. 3. 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 Appro ximately 60 percent narrowing at this level. There are no ischemic appearing bowel loops. 4. No evidence of appendicitis nor diverticulitis. 5. Gallbladder slightly distended. There are a few tiny densities on its dependent wall which may be tiny gallstones. There is no pericholecystic fluid nor gallbladder wall edema. CBD diameter is upp er normal. Called by myself to ER 11/15/2023 at 7 05 p.m. RADIATION DOSE DELIVERED: 425.48mGy.cm Total DLP DATA REPOSITORY: All CT scans at this facility are submitted to the National Radiology Data Registry (NRDR) Dose Index Registry (DIR) with the [employer] (ACR). RADIATION OPTIMIZATION: All CT scans at this facility use at least one of these dose optimization te chniques: automated exposure control; mA and/or kV adjustment per patient size (includes targeted exa ms where dose is matched to clinical indication); or iterative reconstruction.
[2023-11-15 18:18] VITALS: O2SAT 98
[2023-11-15 18:34] LABS: Abs Immature Grans 0.05 10^3/uL (0.0-0.06); Absolute Basophil Count 0.04 10^3/uL (0.0-0.2); Absolute Eosinophil Count 0.05 10^3/uL (0.0-0.7); Absolute Lymphocyte Count 1.95 10^3/uL (1.2-3.4); Absolute Monocyte Count 0.68 10^3/uL (0.1-0.8); Absolute Neutrophil Count 10.76 10^3/uL (1.2-6.7); Basophils % 0.3 %; Eosinophils % 0.4 %; HCT 36.5 % (40.0-50.0); HGB 12.3 g/dL (13.5-17.5); Immature Grans % 0.4 %; Lymphocytes % 14.4 %; MCH 31.6 pg (27.0-33.0); MCHC 33.7 % (32.0-36.0); MCV 94 fL (80-95); MPV 9.4 fL (8.0-11.0); Neutrophils % 79.5 %; Platelet Count 238 10^3/uL (130-400); RBC 3.89 10^6/uL (4.36-5.78); RDW 12.3 % (11.8-14.1); RDW-SD 42.3 fL; WBC 13.54 10^3/uL (4.4-10.8)
[2023-11-15] MEDS: Omnipaque 350 MG/ML 100 ML BTL IJ (18:36)
[2023-11-15] MEDS: Normal Saline - Diluent 50 ML VIAL IJ (18:36)
--- NOTE | 2023-11-15 18:36 | W.ED.GENAD ---
Discharge Plan Disposition Patient Disposition: Home Condition: Improving Discharge Details Clinical Impression: Chest pain Primary Care Provider: Allegra Muñiz ED Provider: Tyron Jimenez Home Meds and New Rx's Prescriptions: New lidocaine [Lidoderm] 5 % adhesive patch,medicated 1 patch topical DAILY PRNQty: 15 0RF Rx Instructions: leave on most painful area for up to 12 hrs No Action methadone 10 mg/5 mL solution 120 mg PO QAM Rx Instructions: orally; methadone 10 mg/mL concentrate 100 mg PO QHS Discharge Instructions Instructions: Chest Pain (DC) Additional Instructions: Please follow-up with your primary care physician HPI General Date/Time Provider Initiated Documentation: 11/15/23 18:04. HPI Narrative: 33-year-old male history of left lung mass biopsied at [facility] within the last year found to be nonmalignant, strong/responded to prednisone therapy, presents with left lower chest and left upper abdomen discomfort associated with subjective shortness of breath. 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 Patient no longer on anticoagulation Related Data Home Medications ?Medication ?Instructions ?Recorded ?Confirmed methadone 10 mg/5 mL oral solution 120 mg PO QAM 03/22/23 11/15/23 lidocaine 5 % topical patch 1 patch topical DAILY PRN #15 ea 11/15/23 (Lidoderm) methadone 10 mg/mL oral concentrate 100 mg PO QHS 11/15/23 11/15/23 Previous Rx's ?Medication ?Instructions ?Recorded lidocaine 5 % topical patch 1 patch topical DAILY PRN #15 ea 11/15/23 (Lidoderm) Allergies Allergy/AdvReac Type Severity Reaction Status Date / Time levofloxacin (From Levaquin) Allergy Severe HIVES Unverified 11/15/23 18:02 General Stated Complaint: SOB/SuddenOnset ELLIS: 3 Exam Narrative Exam Narrative: Alert oriented interactive Moist mucous membranes tongue secretions Speaking full sentences no respiratory distress lungs clear bilaterally no wheezes rales or rhonchi Normal heart sounds no murmurs rubs or gallops Abdomen soft nontender nondistended no palpable mass No peripheral edema moving all extremities without deficit Neurologically intact Course Vital Signs Vital signs: Vital Signs Temperature 37.0 C 11/15/23 17:58 Pulse 64 11/15/23 17:58 Respiratory Rate 14 11/15/23 17:58 Blood Pressure 117/75 11/15/23 17:58 Temperature 37.0 C 11/15/23 17:58 Temperature Source Oral 11/15/23 17:58 Pulse 64 11/15/23 17:58 Respiratory Rate 14 11/15/23 17:58 Respiratory Effort Normal, Non-Labored, Short of Breath 11/15/23 18:00 Blood Pressure 117/75 11/15/23 17:58 Blood Pressure Position Sitting 11/15/23 17:58 Pulse Oximetry 98 11/15/23 18:18 Oxygen Delivery Method Room Air 11/15/23 18:18 Oxygen Flow Rate 0 11/15/23 18:18 Pain Level 6 11/15/23 17:58 Lab/Test Results Lab/Test Results: Laboratory Tests Range/Units 11/15/23 18:27 WBC (4.4-10.8) 10^3/uL 13.54 H RBC (4.36-5.78) 10^6/uL 3.89 L Hgb (13.5-17.5) g/dL 12.3 L Hct (40.0-50.0) % 36.5 L MCV (80-95) fL 94 MCH (27.0-33.0) pg 31.6 MCHC (32.0-36.0) % 33.7 RDW (11.8-14.1) % 12.3 Plt Count (130-400) 10^3/uL 238 MPV (8.0-11.0) fL 9.4 Immature Gran % % 0.4 Neutrophils % % 79.5 Lymphocytes % % 14.4 Monocytes % % 5.0 Eosinophils % % 0.4 Basophils % % 0.3 Nucleated RBC % (0.0-0.3) % 0.0 Absolute Neutrophils (1.2-6.7) 10^3/uL 10.76 H Absolute Lymphocytes (1.2-3.4) 10^3/uL 1.95 Absolute Monocytes (0.1-0.8) 10^3/uL 0.68 Absolute Eosinophils (0.0-0.7) 10^3/uL 0.05 Absolute Basophils (0.0-0.2) 10^3/uL 0.04 Medical Decision Making 33-year-old male history of PE posttraumatic injury, no longer on anticoagulation, left lung mass biopsy nonmalignant responded to prednisone therapy presents with shortness of breath left chest discomfort left upper abdominal discomfort over the last several days, no nausea vomiting no fevers no chills no systemic signs of illness, hemodynamically stable afebrile nontoxic no tachycardia tach not hypoxic, lungs clear bilaterally no abdominal tenderness or mass appreciated, consider pleurisy versus costochondritis versus anxiety versus recurrence of lung mass versus PE versus pleural effusion versus less likely pneumonia lower suspicion for pneumothorax versus consider malignancy of the abdomen lower suspicion for splenic infarct colitis enteritis cholecystitis or appendicitis. Will obtain screening labs CT chest abdomen pelvis with contrast 20: 10 patient resting comfortably no acute distress currently sleeping. Hemodynamically stable. CT showing improvement of lung mass and adenopathy. Incidental finding of SMA stenosis without evidence of ischemic gut. Patient is nonperitoneal no nausea no vomiting no bloody diarrhea. Patient made aware of these incidental findings. Patient requesting medication for his discomfort. Consider component of pleuritic discomfort will provide muscle relaxant and Lidoderm for chest wall symptoms. Quality:SDOH Health Related Social Needs: No Data to Display PFSH All Active Problems (Updated 11/15/23 @ 20:12 by Tyron Jimenez MD) Chest pain (Acute) Nausea & vomiting (Acute) Headache (Acute) Muscle spasm (Acute) Acute neck pain (Acute) Atypical chest pain (Acute) Chest pain, pleuritic (Acute) Medical History Pulmonary embolism Surgical History No significant past surgical history Social History Smoking/Tobacco Use Status: Never Smoking risk assessment performed?: Yes Alcohol Intake: never Drug use: Daily Substance use type: marijuana Details: Methadone clinic Housing: apartment Do you feel safe at home: Yes Do you feel safe in your relationship?: Yes
[2023-11-15 18:47] LABS: PTT Activated 26.8 sec (23.6-32.8); Prothrombin Time 10.5 sec (9.1-11.1)
[2023-11-15 18:53] VITALS: BP 132/74; PULSE 88; RESP 16; O2SAT 96
[2023-11-15 18:53] LABS: ALT 35 U/L (16-63); AST 17 U/L (15-37); Albumin 4.3 g/dL (3.4-5.0); Alkaline Phosphatase 87 U/L (46-116); BUN 15 mg/dL (7-18); Calcium 9.4 mg/dL (8.5-10.1); Chloride 102 mmol/L (98-107); Estimated GFR 100.66 (mL/min/1.73m2); Glucose 101 mg/dL (74-106); Potassium 3.8 mmol/L (3.5-5.1); Sodium 139 mmol/L (136-145); Total Protein 7.9 g/dL (6.4-8.2)
[2023-11-15 19:00] LABS: NT-proBNP 148 pg/mL (<300)
[2023-11-15 19:03] LABS: Troponin I < 4 ng/L (<or=76)
[2023-11-15 19:26] VITALS: RESP 16
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
--- OUTSIDE RECORDS SUMMARY | 2023-11-15 19:50 | XMS_ITS | Encounter Summary ---
[facility] Organization [facility] [place] [address] Care Team Providers Care Chair Trimmer Name Role Phone None Primary Care Provider Unavailabl e Reason for Visit * Reason Onset Date Comments Other 10/17/[address] results and symptoms Encounter Details Date Type Department Care Team (Late st Contact Info) Description 10/17/2023 Tele[place] [phone] Glo Mccrary RN Other (Chest CT results and symptoms) Social History Tobacco Use Types Packs/Day Years Used Date Smoking Tobacco: Never Smokeless Tobacco: Never Alcohol Use Standard Drinks/Week Comments No 0 (1 standard drink = 0.6 oz pur e alcohol) IPV Inpatient Questions Answer Date Recorded Does [...] on file documented as of this encounter Miscellaneous Notes * Telephone Encounter - Glo Mccrary RN - 10/17/2023 10:30 AM EDT I have received a callback from the pt to discuss his recent chest CT results. I have relayed to the pt Dr. Britt's message regarding his chest CT. Per DFK, No worsening / somewhat better. We can stick with the plan of a repeat CT in , unless his symptoms worsen. Pt informs me today that about a week before he had his chest CT (around first week of Sep), he started having increased in his SOB, specially with exertion and pain on his left chest every once in awhile. He's still having these symptoms currently. Pt denies: -chest pain radiating to shoulder and left arm -fever and chills -night sweats -hemoptysis -poor appetite -cough with sputum Pt is currently not taking any pulmonary medications. Pt has taken Prednisone taper from April to June 2023 and he said felt really good while he was on it/ symptoms have significantly improved at that time. Though expressed being worried about taking steroids long-term. I have informed pt that I will send this message to Dr. Britt for recommendations and will get back to him as soon as I hear back. Pt verbalized understanding and will await RN callback with MD response. ZIYAD Reis, RN [facility] Pager: [phone] documented in this encounter Plan of Treatment Not on file documented as of this encounter Visit Diagnoses Not on filedocumented in this encounter Care Teams Chair Trimmer Relationship Specialty Start Date End Date None None PCP - General 04/13/23 documented as of this encounter
--- OUTSIDE RECORDS SUMMARY | 2023-11-15 19:50 | XMS_ITS | Encounter Summary ---
Author Organization [facility] [place] [address] Care Team Providers Care Lathe Set Up Operator Name Role Phone None Primary Care Provider Unavailabl e Encounter Details Date Type Department Care Team (Late st Contact Info) Description 10/11/2023 [place] [address] Glo Mccrary RN Social History Tobacco Use Types Packs/Day Years Used Date Smoking Tobacco: Never Smokeless Tobacco: Never Alcohol Use Standard Drinks/Week Comments No 0 (1 standard drink = 0.6 oz pur e alcohol) [facility] Inpatient Questions Answer Date Recorded Does Anyone [...] Telephone Encounter - Glo Mccrary RN - 10/11/2023 10:20 AM EDT Copied from CRM #[id number]. Topic: Specialty Dept CRMs - Generic Call >> Oct 08, 2023 4:00 PM Shannon M wrote: Specialist: Tommy Samuel Relationship (if other than patient-full name): self Reason for Call: Patient following up to discuss CT Scan results. Please call back I have attempted to call pt back to relay chest CT results per Dr. Poppy Pedroza. Unable to get through as line is disconnected. Will attempt to call pt again and send a MY to obtain an alternate phone number. ZIYAD Reis, RN [facility] Pager: [phone] documented in this encounter Plan of Treatment Not on file documented as of this encounter Visit Diagnoses Not on filedocumented in this encounter Care Teams Lathe Set Up Operator Relationship Specialty Start Date End Date None None PCP - General 04/13/23 documented as of this encounter
--- OUTSIDE RECORDS SUMMARY | 2023-11-15 19:50 | XMS_ITS | Clinical Summary ---
Author Organization [facility] [place] [address] Care Team Providers Care Head Up Operator Name Role Phone None Primary Care Provider Unavailabl e Allergies Active Allergy Reactions Criticality Noted Date Comments Levofloxacin Itching 05/31/2015 IV Medications Medication Sig Dispensed Refills Start Date End Date Status methadone (Dolophine) 10 mg/mL oral concentrateIndicatio ns:opioid dependence Take 10-12 mLs by mouth 2 times daily. Receives Methadone 120 mg qAM, 100 mg qPM from [facility] methadone clinic in [facility]. This dose was confirmed with Dr. Monika Hamlin (clinic medical chemist) on 04/13/2023. Indications: dependence on opioid-type drugs 04/13/2023 Active Active Problems Problem Noted Date Diagnosed Date Lung mass 04/13/2023 Pulmonary embolism 05/31/2015 HCAP (healthcare-associated pneumonia) 6 Encounters Date Type Department Care Team Description 10/17/2023 [place] [phone] Glo Mccrary RN Other (Chest CT results and symptoms) 10/11/2023 [place] [address] Glo Mccrary RN 10/03/2023 [place] [address] Tommy Britt MD 10/01/2023 10:37 AM EDT - 10/01/2023 11:59 PM EDT Hospital [place] [address] Tommy Britt MD Mass of upper lobe of left lung Discharge Disposition: Home 10/01/2023 Travel 08/26/2023 [place] [address] Glo Mccrary RN from Last 3 Months Immunizations Name Administration Dates Next Due TD Adult 03/08/2003 Family History Medical History Relation Comments Seizure Disorder Maternal Grandmother Seizure Disorder Mother Relation Status Comments Maternal Grandmother Mother Social History Tobacco Use Types Packs/Day Years Used Date Smoking Tobacco: Never Smokeless Tobacco: Never Tobacco Cessation:Counseling Given: Not Answered Alcohol Use Standard Drinks/Week Comments No 0 [...] on file Sexual Orientation Not on file Last Filed Vital Signs Vital Sign Reading Time Taken Comments Blood Pressure 107/68 07/04/2023 2:30 PM EDT Pulse 86 07/04/2023 2:30 PM EDT Temperature 35.9 ??C (96.7 ??F) 07/04/2023 2:30 PM ED T Respiratory Rate 15 07/04/2023 2:30 PM EDT Oxygen Saturation 100% 07/04/2023 2:30 PM EDT Inhaled Oxygen Concentration - - Weight 73.9 kg (163 lb) 07/04/2023 2:30 PM EDT Height 175.3 cm (5' 9) 07/04/2023 2:30 PM EDT Body Mass Index 24.07 07/04/2023 2:30 PM EDT Plan of Treatment Health Maintenance Due Date Last Done Comments Tetanus/Diphtheria/Pertussis Vaccines (2 - Tdap) 03/0903/08/2003 HIV screen 02/10/2006 Hepatitis C Screening 02/10/2006 Lipid Screening 02/10/2006 Hepatitis B vaccine (0-59 yrs) (1) 02/10/2007 Covid-19 Vaccine (1 - season) 2023 Influenza (Flu) vaccine (1 o f 1 - Influenza standard series) 10/20/2023 Procedures Procedure Name Priority Date/Time Associated Diagnosis Comments CT CHEST WO CONTRAST (GENERIC) Routine 10/01/2023 10:49 AM EDT Mass of upper lobe of left lung from Last 3 Months Results * CT Chest wo Contrast (Generic) (10/01/2023 10:49 AM EDT) [employer] WORKSTATION ID [id number] RAD Anatomical Region Laterality Modality Chest Computed Tomogra phy Impressions 10/04/2023 9:41 AM EDT 1. ??Stable cicatrization and traction bronchiectasis at the central left upper lobe. 2. ??No new nodule nor mass. 3. ??No stigmata of sarcoid disease. Thank you for letting us participate in the care of this patient. ??If you are a health care provider and have any questions regarding this report, please contact the number below. ??For patients who have questions please contact the health skin care instructor that requested your imaging first. ? Narrative 10/04/2023 9:41 AM EDT EXAMINATION: CT CHEST WO CONTRAST (GENERIC) CLINICAL HISTORY: ROMA mass ? sarcoid R91.8, Other nonspecific abnormal finding of lung field TECHNIQUE: Helical CT of the chest without intravenous contrast administration. Thin-section reconstructions as well as coronal and sagittal reformatted images were generated. COMPARISON: July 04, 2023 FINDINGS: Pulmonary parenchyma: Stable cicatrization and retraction medial left upper lobe parenchymal distortion. Stable subcentimeter para fissural right middle lobe nodule likely intrapulmonary lymph node. No new nodules nor masses. No granulomatous calcification. Airways: Left upper lobe traction bronchiectasis. Pleura: No effusion. Lymph nodes: No enlarged nor calcified lymphadenopathy. Heart and vasculature: Normal size of the heart. No significant pericardial effusion. Normal caliber of the thoracic aorta. Other mediastinal structures: Stable residual anterior mediastinal thymic tissue. Upper abdomen: No significant findings. Skeletal structures: No suspicious lesions. Procedure Note Giselle Aguilar MD - 10/04/2023 EXAMINATION: CT CHEST WO CONTRAST (GENERIC) CLINICAL HISTORY: ROMA mass ? sarcoid R91.8, Other nonspecific abnormal finding of lung field TECHNIQUE: Helical CT of the chest without intravenous contrastadministration. Thin-section reconstructions as well as coronal and sagittal reformattedimages were generated. COMPARISON: July 04, 2023 FINDINGS: Pulmonary parenchyma: Stable cicatrization and retraction medial leftupper lobe parenchymal distortion. Stable subcentimeter para fissural right middlelobe nodule likely intrapulmonary lymph node. No new nodules nor masses. No granulomatous calcification. Airways: Left upper lobe traction bronchiectasis. Pleura: No effusion. Lymph nodes: No enlarged nor calcified lymphadenopathy. Heart and vasculature: Normal size of the heart. No significantpericardial effusion. Normal caliber of the thoracic aorta. Other mediastinal structures: Stable residual anterior mediastinalthymic tissue. Upper abdomen: No significant findings. Skeletal structures: No suspicious lesions. IMPRESSION 1. Stable cicatrization and traction bronchiectasis at the central leftupper lobe. 2. No new nodule nor mass. 3. No stigmata of sarcoid disease. Thank you for letting us participate in the care of this patient. If youare a health care provider and have any questions regarding this report,please contact the number below. For patients who have questions please contactthe health skin care instructor that requested your imaging first. Tommy Britt MD IMG CT ORDERABL ES from Last 3 Months Advance Directives * Full Code (Latest Code Status on File) Date Activated Date Inactivated Comments 05/31/2015 2:23 PM 04/13/2023 10:15 AM Question Answer Comments Does patient have capacity to make decision: Yes * Full Code Date Activated Date Inactivated Comments 05/31/2015 2:17 AM 05/31/2015 2:23 PM Question Answer Comments Does patient have capacity to make decision: Yes Care Teams Head Up Operator Relationship Specialty Start Date End Date None None PCP - General 04/13/23
--- OUTSIDE RECORDS SUMMARY | 2023-11-15 19:50 | XMS_ITS | Encounter Summary ---
Author Organization [facility] Address [facility] [place] [address] Care Team Providers Care Sorting Machine Operator Name Role Phone None Primary Care Provider Unavailabl e Encounter Details Date Type Department Care Team (Late st Contact Info) Description 10/03/2023 [place] [phone] Tommy Britt MD [facility] [place] [address] Social History Tobacco Use Types Packs/Day Years Used Date Smoking Tobacco: Never Smokeless Tobacco: Never Alcohol Use Standard Drinks/Week Comments No 0 (1 standard drink = 0.6 oz pur e alcohol) [facility] Inpatient Questions Answer Date Recorded Does Anyone [...] Telephone Encounter - Glo Mccrary RN - 10/08/2023 4:06 PM EDT I have attempted to call pt back to relay chest CT results per Dr. Poppy Pedroza. Unable to get through as line is disconnected. Will attempt to call pt again and send a MY to obtain an alternate phone number. ZIYAD Reis, RN Pul[facility] Pager: [phone] * Telephone Encounter - Glo Mccrary RN - 10/03/2023 11:51 AM EDT Copied from [facility] #[id number]. Topic: Specialty Dept CRMs - Test Results >> Oct 03, 2023 10:27 AM Sabino Jimenez wrote: Test Results Request Specialist: Tommy Britt MD Relationship (if other than patient-full name): Patient Ordering Provider: Tommy Britt MD Type of Test: CT Chest wo Contrast Date of Test: 10/01/23 Where Was This Test Performed: [facility] Will notify Dr. Britt once final results are available. ZIYAD Reis, RN [facility] Pager: [phone] documented in this encounter Plan of Treatment Not on file documented as of this encounter Visit Diagnoses Not on filedocumented in this encounter Care Teams Sorting Machine Operator Relationship Specialty Start Date End Date None None PCP - General 04/13/23 documented as of this encounter
--- OUTSIDE RECORDS SUMMARY | 2023-11-15 19:51 | XMS_ITS | Encounter Summary ---
Author Organization [facility] Address [facility] [place] [address] Care Team Providers Care Professor Of Visual Arts Name Role Phone None Primary Care Provider Unavailabl e Encounter Details Date Type Department Care Team (Latest Contact Info) Description 07/04/2023 Travel Social History Tobacco Use Types Packs/Day [...] on filedocumented in this encounter Care Teams Professor Of Visual Arts Relationship Specialty Start Date End Date None None PCP - General 04/13/23 documented as of this encounter
--- OUTSIDE RECORDS SUMMARY | 2023-11-15 19:51 | XMS_ITS | Encounter Summary ---
Author Organization [facility] Address [facility] [place] [address] Care Team Providers Care Aerospace Project Manager Name Role Phone None Primary Care Provider Unavailabl e Reason for Referral * Diagnostic Test (Routine) - Closed Specialty Diagnoses / Procedures Referred By Peace Referred To Contact Radiology Diagnoses Lung mass Procedures CT Chest wo Contrast (Generic) Avila Washington MD [facility] [place] [address] [facility] [place] [address] Referral ID Status Reason Start Date Expiration Date V isits Requested Visits Authorized [id number] Closed Specialty Service Requested 05/01/2023 10/31/2024 1 1 Reason for Visit * Auth/Cert (Routine) Specialty Diagnoses / Procedures Referred By Contcandace t Referred To Contact Diagnoses Pulmonary nodules Pulmonary nodule(s)/ROBTIC BRONCH WITH EBUS/GA/BEVERLEY Procedures PRO BRONCHOSCOPY RIGID FLEX W COMPUTER ASSIST IMG NAVIGATION PRO [facility] EBUS GUIDED SAMPL 3/> NODE STATION/STRUX BRONCHOSCOPY,RIGID OR FLEX,WITH IMAGE GUIDANCE ( ROBOT / ION ) (WRVU 2) BRONCH, W ENDOBRONCHIAL ULTRASOUND (EBUS) GUIDED SAMPLING, 3+ NODES (WRVU 4.96) Tommy Britt MD [facility] [place] [address] [facility] Referral ID Status Reason Start Date Expiration Date Visits Re quested Visits Authorized [id number] 1 1 Encounter Details Date Type Department Care Team (Latest Contact Info) Description 05/07/2023 8:04 AM EDT - 05/07/2023 10:06 AM EDT Hospital [place] [address] Avila Washington MD [facility] [place] [address] Lung mass Discharge Disposition: Home Social History Tobacco Use Types Packs/Day Years Used Date Smoking Tobacco: Never Smokeless Tobacco: Never Alcohol Use Standard Drinks/Week Comments No 0 (1 standard drink = 0.6 oz pur e alcohol) [facility] Inpatient Questions Answer Date Recorded Does [...] on file documented as of this encounter Medications at Time of Discharge Medication Sig Dispensed Refills Start Date End Date methadone (Dolophine) 10 mg/mL oral concentrateIndications:o pioid dependence Take 10-12 mLs by mouth 2 times daily. Receives Methadone 120 mg qAM, 100 mg qPM from [facility] methadone clinic in [facility]. This dose was confirmed with Dr. Monika Hamlin (clinic certified medical coding specialist) on 04/13/2023. Indications: dependence on opioid-type drugs 04/13/2023 documented as of this encounter Plan of Treatment Not on file documented as of this encounter Procedures Procedure Name Priority Date/Time Associated Diagnosis Comments CT CHEST WO CONTRAST (GENERIC) Routine 05/07/2023 8:10 AM EDT Lung mass documented in this encounter Results * CT Chest wo Contrast (Generic) (05/07/2023 8:10 AM EDT) Anatomical Region Laterality Modality Chest Computed Tomogra phy Impressions 05/07/2023 10:57 AM EDT 1. ??Enlarging medial left apical and upper lobe mass abutting additional posterior left upper lobe ribs and a greater extent of the mediastinum, encasing left upper lobe bronchovascular structures with left upper lobe traction bronchiectasis and similar right hilar and mediastinal lymphadenopathy. 2. ??Small nodular opacities now extend across the left major fissure to the medial aspect of the superior segment left lower lobe. 3. ??Stable subcentimeter right upper lobe nodules. Thank you for letting us participate in the care of this patient. ??If you are a health care provider and have any questions regarding this report, please contact the number below. ??For patients who have questions please contact the health landcare facilitator that requested your imaging first. ? Electronically signed by: Giselle Aguilar MD, [facility] ([phone]), at 05/07/2023 10:57 AM Narrative 05/07/2023 10:57 AM EDT EXAMINATION: CT CHEST WO CONTRAST (GENERIC) CLINICAL HISTORY: Lung nodule, > 8mm ion robotic bronchoscopy protocol CT chest R91.8, Other nonspecific abnormal finding of lung field TECHNIQUE: Helical CT of the chest without intravenous contrast administration. Thin-section reconstructions as well as coronal and sagittal reformatted images were generated. COMPARISON: CT chest April 13, 2023 FINDINGS: Pulmonary parenchyma: Enlarging medial left apical and upper lobe consolidative mass with progression of volume loss. The mass extends into the left hilum, encasing left bronchovascular structures and invades the mediastinum now abutting the greater aspect of the aortic arch and proximal descending thoracic aorta. The mass abuts the left subclavian artery and extends to the left apex the level of the posterior left second and third ribs. Small nodular opacities extend across the fissure to the medial apical aspect of the superior segment left lower lobe. Previously noted left left upper lobe nodule obscured. Stable subcentimeter right upper lobe nodules. Airways: Left upper lobe traction bronchiectasis/narrowed encased left upper lobe bronchi. Pleura: No effusion. Lymph nodes: Stable borderline and subcentimeter mediastinal lymph nodes. Cannot distinguish left hilar adenopathy from masslike invasion of the left hilum. Heart and vasculature: Normal size of the heart. No significant pericardial effusion. Normal caliber of the thoracic aorta. Upper abdomen: Normal adrenal gland contours Skeletal structures: No suspicious lesion. No scalloping nor remodeling. Procedure Note Giselle Aguilar MD - 05/07/2023 EXAMINATION: CT CHEST WO CONTRAST (GENERIC) CLINICAL HISTORY: Lung nodule, > 8mm ion robotic bronchoscopy protocol CT chest R91.8, Other nonspecific abnormal finding of lung field TECHNIQUE: Helical CT of the chest without intravenous contrastadministration. Thin-section reconstructions as well as coronal and sagittal reformattedimages were generated. COMPARISON: CT chest April 13, 2023 FINDINGS: Pulmonary parenchyma: Enlarging medial left apical and upper lobeconsolidative mass with progression of volume loss. The mass extends into the lefthilum, encasing left bronchovascular structures and invades the mediastinum now abutting the greater aspect of the aortic arch and proximal descendingthoracic aorta. The mass abuts the left subclavian artery and extends to the leftapex the level of the posterior left second and third ribs. Small nodularopacities extend across the fissure to the medial apical aspect of the superiorsegment left lower lobe. Previously noted left left upper lobe nodule obscured. Stablesubcentimeter right upper lobe nodules. Airways: Left upper lobe traction bronchiectasis/narrowed encased leftupper lobe bronchi. Pleura: No effusion. Lymph nodes: Stable borderline and subcentimeter mediastinal lymph nodes.Cannot distinguish left hilar adenopathy from masslike invasion of the lefthilum. Heart and vasculature: Normal size of the heart. No significantpericardial effusion. Normal caliber of the thoracic aorta. Upper abdomen: Normal adrenal gland contours Skeletal structures: No suspicious lesion. No scalloping nor remodeling. IMPRESSION 1. Enlarging medial left apical and upper lobe mass abutting additional posterior left upper lobe ribs and a greater extent of the mediastinum,encasing left upper lobe bronchovascular structures with left upper lobe traction bronchiectasis and similar right hilar and mediastinal lymphadenopathy. 2. Small nodular opacities now extend across the left major fissure tothe medial aspect of the superior segment left lower lobe. 3. Stable subcentimeter right upper lobe nodules. Thank you for letting us participate in the care of this patient. If youare a health care provider and have any questions regarding this report,please contact the number below. For patients who have questions please contactthe health landcare facilitator that requested your imaging first. Avila Washington MD IMG CT ORDERABLES documented in this encounter Visit Diagnoses Diagnosis Lung mass Swelling, mass, or lump in chest documented in this encounter Care Teams Aerospace Project Manager Relationship Specialty Start Date End Date None None PCP - General 04/13/23 documented as of this encounter
--- OUTSIDE RECORDS SUMMARY | 2023-11-15 19:51 | XMS_ITS | Encounter Summary ---
Author Organization [facility] [place] [address] Care Team Providers Care Retail Sales Assistant Name Role Phone None Primary Care Provider Unavailabl e Encounter Details Date Type Department Care Team (Late st Contact Info) Description 06/26/2023 Tele[place] [address] Zuleyka Galeas Social History Tobacco Use Types Packs/Day Years Used Date Smoking Tobacco: Never Smokeless Tobacco: Never Alcohol Use Standard Drinks/Week Comments No 0 (1 standard drink = 0.6 oz pur e alcohol) [facility] Inpatient Questions Answer Date Recorded Does [...] on filedocumented in this encounter Care Teams Retail Sales Assistant Relationship Specialty Start Date End Date None None PCP - General 04/13/23 documented as of this encounter
--- OUTSIDE RECORDS SUMMARY | 2023-11-15 19:51 | XMS_ITS | Encounter Summary ---
Author Organization [facility] Address [facility] [place] [address] Care Team Providers Care Generator Operator Name Role Phone None Primary Care Provider Unavailabl e Encounter Details Date Type Department Care Team (Late st Contact Info) Description 04/30/2023 [place] [phone] Avila Washington MD [facility] [place] [address] Social History Tobacco Use Types Packs/Day Years Used Date Smoking Tobacco: Never Smokeless Tobacco: Never Alcohol Use Standard Drinks/Week Comments No 0 (1 standard drink = 0.6 oz pur e alcohol) [facility] Inpatient Questions Answer Date Recorded Does Anyone Try to Keep You From Having Contact with Others or Doing Things Outside Your Home? no 04/13/2023 Feels Threatened by Someone no 03/22 Feels Unsafe at Home or Work/School no 04/13/2023 Physical Signs of Abuse Present no 04/13/2023 Sex and Gender Information Value Date Recorded Sex Assigned at Not on file Gender Identity Not on file Sexual Orientation Not on file documented as of this encounter Miscellaneous Notes * Telephone Encounter - Avila Wsahington MD - 04/30/2023 5:26 PM EDT Images from the original note were not included. Interventional Pulmonology Telephone Encounter: I called Mr. Corey Santos on 04/30/2023 at 5:27 PM. No answer and a voice mail was left to call our office at [phone] to discuss his recent bronchoscopy with EBUS results. Avila Washington MD, 04/30/2023, 5:27 PM Interventional Pulmonology Section of Pulmonary & Critical Care Pager: [phone] documented in this encounter Plan of Treatment Not on file documented as of this encounter Visit Diagnoses Not on filedocumented in this encounter Care Teams Generator Operator Relationship Specialty Start Date End Date None None PCP - General 04/13/23 documented as of this encounter
--- OUTSIDE RECORDS SUMMARY | 2023-11-15 19:51 | XMS_ITS | Encounter Summary ---
[place] [address] Care Team Providers Care Project Surveyor Name Role Phone None Primary Care Provider Unavailabl e Reason for Visit * Reason Onset Date Comments Other 05/10/2023 Pt requesting MD callback Encounter Details Date Type Department Care Team (Late st Contact Info) Description 05/10/2023 Telephone [place] [address] Zuleyka Johnson RN Other (Pt requesting MD callback ) Social History Tobacco Use Types Packs/Day Years [...] encounter Miscellaneous Notes * Telephone Encounter - Zuleyka Johnson RN - 05/10/2023 12:21 PM EDT I have spoken to pt. He tells me he was really hoping somebody could call him back today. He expresses that he is nervous and states I just need to know if I have cancer or not. I informed pt that I would reach out to covering MD to relay his request. Zuleyka Johnson RN Department of Pulmonary 5C, [facility] [place] / Pager: [phone] documented in this encounter Plan of Treatment Not on file documented as of this encounter Visit Diagnoses Not on filedocumented in this encounter Care Teams Project Surveyor Relationship Specialty Start Date End Date None None PCP - General 04/13/23 documented as of this encounter
--- OUTSIDE RECORDS SUMMARY | 2023-11-15 19:51 | XMS_ITS | Encounter Summary ---
Author Organization [facility] Address [facility] [place] [address] Care Team Providers Care Java Development Manager Name Role Phone None Primary Care Provider Unavailabl e Encounter Details Date Type Department Care Team (Late st Contact Info) Description 05/14/2023 Telephone [place] [phone] Avila Washington MD [facility] [place] [address] Social History Tobacco Use Types Packs/Day Years Used Date Smoking Tobacco: Never Smokeless Tobacco: Never Alcohol Use Standard Drinks/Week Comments No 0 (1 standard drink = 0.6 oz pur e alcohol) [facility] Inpatient Questions Answer Date Recorded Does [...] Miscellaneous Notes * Telephone Encounter - Avila Washington MD - 05/14/2023 8:36 AM EDT Interventional Pulmonology Telephone Encounter: I called Mr. Corey Santos on 05/14/2023 at 8:36 AM. No answer and a voice mail was left to call our office at [phone] to discuss his recent robotic assisted bronchoscopy and EBUS results. Avila Washington MD, 05/14/2023, 8:36 AM Interventional Pulmonology Section of Pulmonary & Critical Care Pager: [phone] documented in this encounter Plan of Treatment Not on file documented as of this encounter Visit Diagnoses Not on filedocumented in this encounter Care Teams Java Development Manager Relationship Specialty Start Date End Date None None PCP - General 04/13/23 documented as of this encounter
--- OUTSIDE RECORDS SUMMARY | 2023-11-15 19:51 | XMS_ITS | Encounter Summary ---
[facility] [place] [address] Care Team Providers Care Software Engineering Specialist Name Role Phone None Primary Care Provider Unavailabl e Reason for Visit * Reason Onset Date Comments Other 05/10/2023 Bronchoscopy ladonna l back request Encounter Details Date Type Department Care Team (Late st Contact Info) Description 05/10/2023 [place] [address] Zuleyka Johnson RN Other (Bronchoscopy call back request ) Social History Tobacco Use Types Packs/Day [...] Encounter - Zuleyka Johnson RN - 05/10/2023 11:59 AM EDT I have attempted to call pt back to get more clarity regarding this incoming call. No answer. Will forward to the provider. Zuleyka Johnson RN Department of Pulmonary 5C, [facility] [place] / Pager: [phone] * Telephone Encounter - Zuleyka Johnson RN - 05/10/2023 11:58 AM EDT Copied from [facility] #[id number]. Topic: Specialty Dept CRMs - Test Results >> May 10, 2023 8:16 AM Ivanna Garcia wrote: Test Results Request Specialist: Avila Washington MD Relationship (if other than patient-full name): Patient Ordering Provider: Avila Washington MD Type of Test: Bronchoscopy Date of Test: 04/25/23 and 05/07/23 Where Was This Test Performed: [facility] [place] documented in this encounter Plan of Treatment Not on file documented as of this encounter Visit Diagnoses Not on filedocumented in this encounter Care Teams Software Engineering Specialist Relationship Specialty Start Date End Date None None PCP - General 04/13/23 documented as of this encounter
--- OUTSIDE RECORDS SUMMARY | 2023-11-15 19:51 | XMS_ITS | Encounter Summary ---
Author Organization [facility] [place] [address] Care Team Providers Care Wad Impregnator Name Role Phone None Primary Care Provider Unavailabl e Encounter Details Date Type Department Care Team (Late st Contact Info) Description 05/10/2023 [place] [phone] Jonna Sandhu, CADD MANAGER [facility] [place] [address] Social History Tobacco Use Types Packs/Day Years Used Date Smoking Tobacco: Never Smokeless Tobacco: Never Alcohol Use Standard Drinks/Week Comments No 0 (1 standard drink = 0.6 oz pur e alcohol) [facility] Inpatient Questions Answer Date Recorded Does [...] encounter Miscellaneous Notes * Telephone Encounter - Jonna Sandhu, JULIO - 05/10/2023 1:13 PM EDT Interventional Pulmonology Telephone Encounter: I called Mr. Corey Santos on 05/10/2023 at 1:13 PM. No answer and a voice mail was left to call our office at [phone] to discuss his recent robotic assisted bronchoscopy and EBUS results. Mr. Santos had called in with a request for his results. Some results are still pending for cytology and cultures and we are waiting for them to finalize. Dr. Washington will be back to review these results next week. Jonna Sandhu APRN, 05/10/2023, 1:13 PM Interventional Pulmonology Section of Pulmonary & Critical Care Pager: [phone] documented in this encounter Plan of Treatment Not on file documented as of this encounter Visit Diagnoses Not on filedocumented in this encounter Care Teams Wad Impregnator Relationship Specialty Start Date End Date None None PCP - General 04/13/23 documented as of this encounter
--- OUTSIDE RECORDS SUMMARY | 2023-11-15 19:51 | XMS_ITS | Encounter Summary ---
[place] [address] Care Team Providers Care Art Professor Name Role Phone None Primary Care Provider Unavailabl e Encounter Details Date Type Department Care Team (Late st Contact Info) Description 04/15/2023 [place] [phone] Zuleyka Galeas Social History Tobacco Use Types Packs/Day Years Used Date Smoking Tobacco: Never Smokeless Tobacco: Never Alcohol Use Standard Drinks/Week Comments No 0 (1 standard drink = 0.6 oz pur e alcohol) [facility] Inpatient Questions Answer Date Recorded Does Anyone [...] on filedocumented in this encounter Care Teams Art Professor Relationship Specialty Start Date End Date None None PCP - General 04/13/23 documented as of this encounter
--- OUTSIDE RECORDS SUMMARY | 2023-11-15 19:51 | XMS_ITS | Encounter Summary ---
Author Organization [facility] Address [facility] [place] [address] Care Team Providers Care Vending Service Technician Name Role Phone None Primary Care Provider Unavailabl e Reason for Referral * Diagnostic Test (Routine) - Closed Specialty Diagnoses / Procedures Referred By Contac t Referred To Contact Radiology Diagnoses Lung mass Procedures MRI Brain wwo Contrast (Generic) Avila Washington MD [facility] [place] [address] [place] [address] Referral ID Status Reason Start Date Expiration Date V isits Requested Visits Authorized [id number] Closed Specialty Service Requested 04/14/2023 10/12/2024 1 1 Reason for Visit * Diagnostic Test (Routine) - Closed Specialty Diagnoses / Procedures Referred By Contac t Referred To Contact Radiology Diagnoses Lung mass Procedures MRI Brain wwo Contrast (Generic) Avila Washington MD [facility] [place] [address] [place] [address] Referral ID Status Reason Start Date Expiration Date V isits Requested Visits Authorized [id number] Closed Specialty Service Requested 04/14/2023 10/12/2024 1 1 Encounter Details Date Type Department Care Team (Latest Contact Info) Description 04/23/2023 7:20 AM EST - 04/23/2023 11:59 PM EST Hospital Encounter MRI at [facility] [place] [address] Avila Washington MD [facility] [place] [address] Lung mass Discharge Disposition: Home Social History [...] 120 mg qAM, 100 mg qPM from [facility] methadone clinic in [facility]. This dose was confirmed with Dr. Monika Hamlin (clinic medical referral coordinator) on 04/13/2023. Indications: dependence on opioid-type drugs 04/13/2023 documented as of this encounter Plan of Treatment Not on file documented as of this encounter Procedures Procedure Name Priority Date/Time Associated Diagnosis Comments MRI BRAIN WWO CONTRAST (GENERIC) Routine 04/23/2023 8:23 AM EST Lung mass documented in this encounter Results * MRI Brain wwo Contrast (Generic) (04/23/2023 8:23 AM EST) Anatomical Region Laterality Modality Head Magnetic Resonan ce Impressions 04/23/2023 11:50 AM EST Normal brain MRI. No evidence of metastatic disease. Thank you for letting us participate in the care of this patient. ??If you are a health care provider and have any questions regarding this report, please contact the number below. ??For patients who have questions please contact the health career transition specialist that requested your imaging first. ? Narrative 04/23/2023 11:50 AM EST EXAMINATION: MRI BRAIN WWO CONTRAST (GENERIC) CLINICAL HISTORY: Metastatic disease evaluation left lung mass R91.8, Other nonspecific abnormal finding of lung field TECHNIQUE: MRI of the brain was performed before and after the intravenous administration of 15cc Dotarem. COMPARISON: Head CT 05/27/2015 FINDINGS: There is no intracranial hemorrhage or diffusion restriction. There is no abnormal signal of the brain parenchyma. There is no intracranial mass effect. The ventricles are normal in size and morphology. Sulcal spaces and basal cisterns are patent. No abnormal enhancement of the brain or meninges. There are no osseous or extracranial soft tissue lesions identified. Procedure Note Peter Benton DO - 04/23/2023 EXAMINATION: MRI BRAIN WWO CONTRAST (GENERIC) CLINICAL HISTORY: Metastatic disease evaluation left lung mass R91.8, Other nonspecific abnormal finding of lung field TECHNIQUE: MRI of the brain was performed before and after the intravenousadministration of 15cc Dotarem. COMPARISON: Head CT 05/27/2015 FINDINGS: There is no intracranial hemorrhage or diffusion restriction. There isno abnormal signal of the brain parenchyma. There is no intracranial masseffect. The ventricles are normal in size and morphology. Sulcal spaces andbasal cisterns are patent. No abnormal enhancement of the brain or meninges. There are no osseous or extracranial soft tissue lesions identified. IMPRESSION Normal brain MRI. No evidence of metastatic disease. Thank you for letting us participate in the care of this patient. If youare a health care provider and have any questions regarding this report,please contact the number below. For patients who have questions please contactthe health career transition specialist that requested your imaging first. Avila Washington MD IMG MRI ORDERABLES documented in this encounter Visit Diagnoses Diagnosis Lung mass Swelling, mass, or lump in chest documented in this encounter Administered Medications Inactive Administered Medications - up to 3 most recent administrations Medication Order MAR Action Action Date Dose Rate Site gadoterate meglumine (Dotarem) (0.5 mMol/mL) injection solution 0-100 mL 0-100 mL, Intravenous, ONCE PRN, 1 dose, Starting on Tu04/23/23 at 0752, Until Tu04/23/23 at 0811, Per Protocol, Radiology Contrast, Routine Given 04/23/2023 8:11 AM EST 15 mLs documented in this encounter Care Teams Vending Service Technician Relationship Specialty Start Date End Date None None PCP - General 04/13/23 documented as of this encounter
--- OUTSIDE RECORDS SUMMARY | 2023-11-15 19:51 | XMS_ITS | Encounter Summary ---
Author Organization [facility] Address [facility] [place] [address] Care Team Providers Care Stockroom Attendant Name Role Phone None Primary Care Provider Unavailabl e Reason for Visit * Diagnostic Test (STAT) - Closed Specialty Diagnoses / Procedures Referred By Contcandace t Referred To Contact Radiology Diagnoses Lung mass Procedures NM PET CT Skull Base to Mid-thigh Avila Washington MD [facility] [place] [address] [place] [address] Referral ID Status Reason Start Date Expiration Date V isits Requested Visits Authorized [id number] Closed Specialty Service Requested 04/14/2023 10/12/2024 1 1 Encounter Details Date Type Department Care Team (Latest Contact Info) Description 04/24/2023 11:10 AM EST - 04/24/2023 11:59 PM [facility] Hospital Encounter [place] [address] Avila Washington MD [facility] [place] [address] Discharge Disposition: Home Social History Tobacco Use Types Packs/Day Years Used Date Smoking Tobacco: Never Smokeless Tobacco: Never Alcohol Use Standard Drinks/Week Comments No 0 (1 standard drink = 0.6 oz pur e alcohol) [facility] Inpatient Questions Answer Date Recorded Does [...] 120 mg qAM, 100 mg qPM from [facility] methadone clinic in [facility]. This dose was confirmed with Dr. Monika Hamlin (clinic medical practitioners) on 04/13/2023. Indications: dependence on opioid-type drugs 04/13/2023 documented as of this encounter Plan of Treatment Not on file documented as of this encounter Procedures Procedure Name Priority Date/Time Associated Diagnosis Comments NM PET CT SKULL BASE TO MID-THIGH ([facility]) STAT 04/24/2023 12:30 PM EST Lung mass POCT GLUCOSE Routine 04/24/2023 11:20 AM EST documented in this encounter Results * POCT Glucose (04/24/2023 11:20 AM EST) Glucose, POC 91 65 - 199 mg/dL [facility] Comment: Supplemental ranges: <140 mg/dL before meals <180 mg/dL all other times of the day Blood 04/24/2023 11:2 0 AM EST 04/24/2023 11:20 AM EST Avila Washington MD POINT OF CARE TEST O RDERABLES [facility] [address] documented in this encounter Visit Diagnoses Not on filedocumented in this encounter Care Teams Stockroom Attendant Relationship Specialty Start Date End Date None None PCP - General 04/13/23 documented as of this encounter
--- OUTSIDE RECORDS SUMMARY | 2023-11-15 19:51 | XMS_ITS | Encounter Summary ---
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 documented in this encounter Plan of Treatment Not on file documented as of this encounter Procedures Procedure Name Priority Date/Time Associated Diagnosis Comments IMMUNOPHENOTYPING FLOW CYTOMETRY (BLOOD) Routine 04/25/2023 9:50 AM EST FLOW CYTOMETRY REPORT Routine 04/25/2023 9:50 AM EST XR CHEST ONE VIEW STAT 04/25/2023 9:4 3 AM EST NON-HEEL ATTACHER WOOD FINAL REPORT Routine 04/25/2023 9:17 AM EST NON-HEEL ATTACHER WOOD FINAL REPORT Routine 04/25/2023 9:17 AM EST NON-HEEL ATTACHER WOOD FINAL REPORT Routine 04/25/2023 9:17 AM EST NON-HEEL ATTACHER WOOD FINAL REPORT Routine 04/25/2023 9:17 AM EST SURGICAL PATHOLOGY REPORT Routine 2023 9:17 AM EST SPECIMEN TO PATHOLOGY Routine 04/25/2023 9:17 AM EST CYTOPATHOLOGY NON-GYNECOLOGICAL Routine 04/25/2023 9:17 AM EST CYTOPATHOLOGY NON-GYNECOLOGICAL Routine 04/25/2023 9:17 AM EST CYTOPATHOLOGY NON-GYNECOLOGICAL Routine 04/25/2023 9:17 AM EST CYTOPATHOLOGY NON-GYNECOLOGICAL Routine 04/25/2023 9:17 AM EST [facility] [place] Dx/Tx Intervention Perph Les ([id number]) 04/25/2023 8:38 AM EST Lung mass [facility] Ebus Guided Sampl 3/> Node Station/Strux ([id number]) 04/25/2023 8:38 AM EST Lung mass Bronchoscopy, Transbronch Biopsy ([id number]) 04/25/2023 8:38 AM EST Lung mass documented in this encounter Results * Flow Cytometry Report (04/25/2023 9:50 AM EST) Flow Cytometry Report [id number] ? Location: 4T; EA06; A The signing pathologist has (i) examined the relevant preparation(s) for the specimen(s) and (ii) rendered or confirmed the diagnosis(es). . ?Flow Cytometry DIAGNOSIS LEVEL 7 LYMPH NODE - FLOW CYTOMETRY: - No monotypic B-cell population or phenotypically abnormal T-cell population detected (see Comment). Comment: Flow cytometry does not detect certain hematolymphoid malignancies and non- hematolymphoid malignancies. Correlation with pending morphology from the biopsy is recommended. Electronically signed by: ?Iraida CISNEROS Robert Rena Verified: ??04/25/2023 15:07 ??Pathologist Performed at: ??-[facility] Dept. of Pathology, [place] [address] College Intern: Annie Whittaker MD, FCAP, ??CLIA Certificate: [id number] DISCUSSION Cell viability was ~85.2% as assessed by 7-AAD exclusion. Blasts based on CD45/SSC/CD117, are not increased. The T-lymphocytes, B- lymphocytes and CD56+ NK cells comprise approx 77%, 20%, 2% of the gated population, respectively. The CD19 positive B-cells have a polytypic expression of surface immunoglobulin light chain (Crown:Lambda ratio at 1.3:1). The T-cells are an admixture of CD4+ and CD8+ T lymphocytes (ratio of 2.1:1). No loss or atypical intensity distributions are seen for any mejia T antigen (CD2, 3, 4+8, 5, 7). There is no increase in AH85-nbxflzbd/ CD3-neg NK cells. Flow analysis is an ancillary study. A definite diagnosis requires correlation with the morphologic features of this process and if necessary, correlation with other ancillary studies like immunohistochemistr y, enzyme cytochemistry and/or cyto/ molecular genetics. This test was developed and its performance characteristics determined by the Clinical Flow Cytometry Laboratory at [facility]. It has not been cleared or approved by the U.S. Food and Drug Administration. ??The FDA has determined that such clearance or approval is not necessary. ??This test is used for clinical purposes. ??It should not be regarded as investigational or for research. This laboratory is certified under the Clinical Laboratory Improvement Act of 1988 (CLIA) as qualified to perform high complexity clinical laboratory testing. SPECIMEN PROCESSING [id number] Cells for immunophenotypic analysis were derived from LYMPH NODE. CD45 vs side scatter gating was utilized to identify a LYMPHOID analysis region that comprises approximately 75-77% of all cells. The following markers were assessed: CD2, CD3, CD4, CD5, CD7, CD8, CD10, CD19, CD45, CD56, kappa light chain, and lambda light chain. . CLINICAL INFORMATION 33 y/o male with EBUS/ROMA lymphadenopathy. [facility] 04/25/2023 9:50 AM EST Tommy Britt MD PATHOLOGY/CYTOL OGY ORDERABLES Performing Organization Address [facility] [place] [address] * Immunophenotyping Flow Cytometry (04/25/2023 9:50 AM EST) Immunophenotyping Flow See Comment [facility] Comment: When completed by the Pathologist, the Flow Cytometry Report ([id number]) will display under the Pathology Results section within [facility]. Other 04/25/2023 9:50 AM EST 04/25/2023 9:50 AM EST Narrative Resulting Agency Comment Spec In Lab Tommy Britt MD HEMATOLOGY ORDE RABLES Performing Organization Address [facility] Co de Phone Number [facility] [place] [address] * XR Chest One View (04/25/2023 9:43 AM EST) Anatomical Region Laterality Modality Chest N/A Digital Radiogra phy Impressions 04/25/2023 9:50 AM EST 1. ??Increased size of masslike consolidation extending from the left hilum to the left upper lobe concerning for malignancy with possible superimposed pneumonia versus post biopsy change/pulmonary hemorrhage. 2. ??No pneumothorax. 3. ??No pleural effusions. Thank you for letting us participate in the care of this patient. ??If you are a health care provider and have any questions regarding this report, please contact the number below. ??For patients who have questions please contact the health care giver that requested your imaging first. ? Electronically signed by: Eliecer Snyder MD, [facility] ([phone]), at 04/25/2023 9:50 AM Narrative 04/25/2023 9:50 AM EST EXAMINATION: XR CHEST ONE VIEW CLINICAL HISTORY: s/p TBBx left evaluate for PTX TECHNIQUE: 1 view of the chest , single image COMPARISON: Chest radiograph 04/13/2023. CT chest 04/13/2023. FINDINGS: Increased size of a left upper lobe paramediastinal masslike area of consolidation. No new airspace opacity within the right lung. No pneumothorax. No pleural effusions. Normal size of the cardiomediastinal silhouette. Normal right hilum. The superior aspect of the left hilum is now obscured. No acute osseous findings. Procedure Note Eliecer Snyder MD - 04/25/2023 EXAMINATION: XR CHEST ONE VIEW CLINICAL HISTORY: s/p TBBx left evaluate for PTX TECHNIQUE: 1 view of the chest , single image COMPARISON: Chest radiograph 04/13/2023. CT chest 04/13/2023. FINDINGS: Increased size of a left upper lobe paramediastinal masslike area of consolidation. No new airspace opacity within the right lung. Nopneumothorax. No pleural effusions. Normal size of the cardiomediastinal silhouette.Normal right hilum. The superior aspect of the left hilum is now obscured. Noacute osseous findings. IMPRESSION 1. Increased size of masslike consolidation extending from the left hilumto the left upper lobe concerning for malignancy with possible superimposed pneumonia versus post biopsy change/pulmonary hemorrhage. 2. No pneumothorax. 3. No pleural effusions. Thank you for letting us participate in the care of this patient. If youare a health care provider and have any questions regarding this report,please contact the number below. For patients who have questions please contactthe health care giver that requested your imaging first. Electronically signed by: Eliecer Snyder MD, [facility]([phone]), at 04/25/2023 9:50 AM Tommy Britt MD IMG DX ORDERABL ES * Surgical Pathology Report (04/25/2023 9:17 AM EST) Final Diagnosis [id number] ? Location: ; [facility]; The signing pathologist has (i) examined the relevant preparation(s) for the specimen(s) and (ii) rendered or confirmed the diagnosis(es). . 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 - There is no evidence of malignancy. Electronically signed by: ?Donn SOLIS, Jessica Christina Verified: ??04/30/2023 16:42 ??Pathologist Performed at: ??-[facility] Dept. of Pathology, [place] [id number] College Intern: Annie Whittaker MD, FCAP, ??CLIA Certificate: [id number] ADDITIONAL STUDIES Special Stains: Formalin-fixed, paraffin-embedded tissue sections are studied with appropriate positive controls. Block ? Special Stain ? Result (Positive/Negative) A1 ?GMS ?Negative for fungal organisms A1 ?Gram ? Negative for bacterial organisms A1 ?AFB ?Negative for acid-fast organisms An elastic stain (EVG) was also evaluated (A1). Immunohistochemistry Studies: Formalin-fixed, paraffin-embedded tissue sections are studied using the polymer technique with appropriate positive and negative controls. ?These IHC studies provide the pathologist with adjunctive diagnostic information. Antibody specificity has been verified by testing antibodies on a series of in-house tissues with known immunohistochemical performance characteristics. The clinical interpretation of any antibody positive staining or its absence is evaluated within the context of clinical presentation, morphology, histopathological criteria and other diagnostic tests. Block ? Antibody ?Result (Positive/Negative) A1 ? [id number] ?Highlights benign and reactive epithelium A1 ? Mycobacterium ? Negative SPECIMEN(S) SUBMITTED A - Lung, left upper lobe, biopsy (Multiple) CLINICAL INFORMATION 33-year-old male with/EBUS/lung mass and lymphadenopathy SPECIMEN PROCESSING A - Labeled/Fixative: Left upper lobe biopsies, formalin. Quantity/Size: Multiple, ranging from 0.2 to 0.5 cm. Tissue Description: Soft, pink-red tissues. Sections/Processing: Submitted in toto ??in 1 cassette labeled A1. ??SM 04/30/2023 4:42 PM EDT [facility] LUNG STRUCTURE / Unknown 04/25/2023 9:17 AM EST 04/25/2023 9:17 AM EST Tommy Britt MD PATHOLOGY/CYTOL OGY ORDERABLES [facility] [place] [address] [facility] [place] [address] * Non-Investment Officer Final Report (04/25/2023 9:17 AM EST) Diagnosis Discussion [id number] ? Location: 4T; EA06; A The signing pathologist has (i) examined the relevant preparation(s) for the specimen(s) and (ii) rendered or confirmed the diagnosis(es). . ? Non-Investment Officer Final DIAGNOSIS See Discussion Electronically signed by: ?Trena SOLIS, Steve Blank Verified: ??04/29/2023 11:43 ??Cytopathologist Performed at: ??-[facility] Dept. of Pathology, [place] [address] College Intern: Annie Whittaker MD, FCAP, ??CLIA Certificate: [id number] DISCUSSION Lymph node: station 4R (EBUS-guided FNA) - Lymphoid tissue present; compatible with lymph node sampling. Negative for metastatic carcinoma. (Cell block was examined.) CLINICAL INFORMATION Specimen Source : Lymph node: station 4R (EBUS-guided FNA) Pertinent Clinical Data and Significant Therapy: 33 yrs old male/EBUS/lung mass and lymphadenopathy Clinical Impression : Left upper lobe mass ? malignancy Pertinent Radiologic Findings ??: (not provided) Gross Description: Received ??in Formalin approximately 20 mL total volume of ?? cloudy, pink fluid, with dark flecks. Total Preparation: Cell Block 1. 04/29/2023 11:43 AM EDT [facility] LYMPH NODE SPECIMEN / Unknown 04/25/2023 9:17 AM EST 04/25/2023 9:17 AM EST Tommy Britt MD PATHOLOGY/CYTOL OGY ORDERABLES [facility] [address] [place] [address] * Non-Investment Officer Final Report (04/25/2023 9:17 AM EST) Diagnosis Discussion [id number] ? Location: 4T; EA06; A The signing pathologist has (i) examined the relevant preparation(s) for the specimen(s) and (ii) rendered or confirmed the diagnosis(es). . ? Non-Investment Officer Final DIAGNOSIS Negative for Malignancy Electronically signed by: ?Trena SOLIS, Steve Blank Verified: ??04/29/2023 11:39 ??Cytopathologist Performed at: ??-[facility] Dept. of Pathology, [place] [address] College Intern: Annie Whittaker MD, FCAP, ??CLIA Certificate: [id number] DISCUSSION Lymph node: station 7 (EBUS-guided FNA) - Lymphoid tissue present; compatible with lymph node sampling. Negative for metastatic carcinoma. (Cell block was examined.) CLINICAL INFORMATION Specimen Source : Lymph node: station 7 (EBUS-guided FNA) Pertinent Clinical Data and Significant Therapy: 33 yrs old male/EBUS/lung mass and lymphadenopathy Clinical Impression : Left upper lobe mass ? malignancy Pertinent Radiologic Findings ??: (not provided) Gross Description: Received ??in Formalin approximately 20 mL total volume of ?? cloudy, bloody fluid, with clots. Total Preparation: Cell Block 1. 04/29/2023 11:39 AM EDT [facility] LYMPH NODE SPECIMEN / Unknown 04/25/2023 9:17 AM EST 04/25/2023 9:17 AM EST Tommy Britt MD PATHOLOGY/CYTOL OGY ORDERABLES [facility] [address] [place] [address] * Non-Investment Officer Final Report (04/25/2023 9:17 AM EST) Diagnosis Discussion [id number] ? Location: 4T; EA06; A The signing pathologist has (i) examined the relevant preparation(s) for the specimen(s) and (ii) rendered or confirmed the diagnosis(es). . ? Non-Investment Officer Final DIAGNOSIS Negative for Malignancy Electronically signed by: ?Trena SOLIS, Steve Blank Verified: ??04/29/2023 11:33 ??Cytopathologist Performed at: ??-[facility] Dept. of Pathology, [place] [address] College Intern: Annie Whittaker MD, FCAP, ??CLIA Certificate: [id number] DISCUSSION Lymph node: station 11L (EBUS-guided FNA) - Lymphocytes present; compatible with lymph node sampling. Negative for metastatic carcinoma. (Cell block was examined.) CLINICAL INFORMATION Specimen Source : Lymph node: station 11L (EBUS-guided FNA) Pertinent Clinical Data and Significant Therapy: 33 yrs old male/EBUS/lung mass and lymphadenopathy Clinical Impression : Left upper lobe mass ? malignancy Pertinent Radiologic Findings ??: (not provided) Gross Description: Received ??in Formalin approximately 20 mL total volume of ?? cloudy, bloody fluid, with clots. Total Preparation: Cell Block 1. 04/29/2023 11:33 AM EDT [facility] LYMPH NODE SPECIMEN / Unknown 04/25/2023 9:17 AM EST 04/25/2023 9:17 AM EST Tommy Britt MD PATHOLOGY/CYTOL OGY ORDERABLES [facility] [place] [id number] [facility] [place] [address] * Non-Investment Officer Final Report (04/25/2023 9:17 AM EST) Diagnosis Discussion [id number] ? Location: 4T; EA06; A The signing pathologist has (i) examined the relevant preparation(s) for the specimen(s) and (ii) rendered or confirmed the diagnosis(es). . ? Non-Investment Officer Final DIAGNOSIS Nondiagnostic Electronically signed by: ?Trena SOLIS, Steve Blank Verified: ??04/29/2023 11:28 ??Cytopathologist Performed at: ??-[facility] Dept. of Pathology, [place] [address] College Intern: Annie Whittaker MD, FCAP, ??CLIA Certificate: [id number] DISCUSSION Lymph node: station 4L (EBUS-guided FNA) - A small amount of blood is present in a sample that is almost acellular. (Cell block was examined.) CLINICAL INFORMATION Specimen Source : Lymph node: station 4L (EBUS-guided FNA) Pertinent Clinical Data and Significant Therapy: 33 yrs old male/EBUS/lung mass and lymphadenopathy Clinical Impression : Left upper lobe mass ? malignancy Pertinent Radiologic Findings ??: (not provided) Gross Description: Received ??in Formalin approximately 20 mL total volume of ?? clear, colorless fluid, with dark flecks. Total Preparation: Cell Block 1. 04/29/2023 11:28 AM EDT [facility] LYMPH NODE SPECIMEN / Unknown 04/25/2023 9:17 AM EST 04/25/2023 9:17 AM EST Tommy Britt MD PATHOLOGY/CYTOL OGY ORDERABLES [facility] [place] [address] [facility] [place] [address] * Specimen to Pathology (04/25/2023 9:17 AM EST) AP Specimen 04/25/2023 9:17 AM EST 04/25/2023 9:17 AM EST Narrative [facility] - 04/25/2023 9:17 AM EST Specimen requisition ordered. ??Separate Pathology report to follow Tommy Britt MD PATHOLOGY/CYTOL OGY ORDERABLES [facility] [place] [address] * Cytopathology Non-Gynecological (04/25/2023 9:17 AM EST) AP Specimen 04/25/2023 9:17 AM EST 04/25/2023 9:17 AM EST Narrative [facility] - 04/25/2023 9:17 AM EST Specimen requisition ordered. ??Separate Pathology report to follow Tommy Britt MD PATHOLOGY/CYTOL OGY ORDERABLES [facility] [place] [address] * Cytopathology Non-Gynecological (04/25/2023 9:17 AM EST) AP Specimen 04/25/2023 9:17 AM EST 04/25/2023 9:17 AM EST Narrative [facility] - 04/25/2023 9:17 AM EST Specimen requisition ordered. ??Separate Pathology report to follow Tommy Britt MD PATHOLOGY/[place] [address] * Cytopathology Non-Gynecological (04/25/2023 9:17 AM EST) AP Specimen 04/25/2023 9:17 AM EST 04/25/2023 9:17 AM EST Narrative [facility] - 04/25/2023 9:17 AM EST Specimen requisition ordered. ??Separate Pathology report to follow Tommy Britt MD PATHOLOGY/CYTOL OGY ORDERABLES Performing Organization Address City/[facility] Co de Phone Number [facility] [place] [address] * Cytopathology Non-Gynecological (04/25/2023 9:17 AM EST) AP Specimen 04/25/2023 9:17 AM EST 04/25/2023 9:17 AM EST Narrative [facility] - 04/25/2023 9:17 AM EST Specimen requisition ordered. ??Separate Pathology report to follow Tommy Britt MD PATHOLOGY/CYTOL OGY ORDERABLES Performing Organization Address City/[facility] [place] [address] documented in this encounter Visit Diagnoses Not on filedocumented in this encounter Active and Recently Administered Medications Care Teams Physical Therapy Technician Relationship Specialty Start Date End Date None None PCP - General 04/13/23 documented as of this encounter
--- OUTSIDE RECORDS SUMMARY | 2023-11-15 19:51 | XMS_ITS | Encounter Summary ---
[place] [address] Care Team Providers Care Cordwood Cutter Name Role Phone None Primary Care Provider Unavailabl e Reason for Visit * Reason Onset Date Comments Pre Procedure Call 05/03/2023 Encounter Details Date Type Department Care Team (Late st Contact Info) Description 05/03/2023 [place] [id number] Zuleyka Galeas Pre Procedure Call Social History Tobacco Use Types Packs/Day Years Used Date Smoking Tobacco: Never Smokeless Tobacco: Never Alcohol Use Standard Drinks/Week Comments No 0 (1 standard drink = 0.6 oz pur e alcohol) [facility] Inpatient Questions Answer Date Recorded [...] Telephone Encounter - Zuleyka Johnson RN - 05/03/2023 11:47 AM EDT Chart review complete. Pt is not on oxygen or blood thinners at this time. Zuleyka Johnson RN Department of Pulmonary 5C, [facility] / Pager: [phone] documented in this encounter Plan of Treatment Not on file documented as of this encounter Visit Diagnoses Not on filedocumented in this encounter Care Teams Cordwood Cutter Relationship Specialty Start Date End Date None None PCP - General 04/13/23 documented as of this encounter
--- OUTSIDE RECORDS SUMMARY | 2023-11-15 19:51 | XMS_ITS | Encounter Summary ---
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 Name Role Phone None Primary Care Provider Unavailabl e Reason for Visit * Auth/Cert (Routine) Specialty Diagnoses / Procedures Referred By Contac t Referred To Contact Diagnoses Pulmonary nodules Pulmonary nodule(s)/ROBTIC BRONCH WITH EBUS/GA/LORENZA Procedures PRO BRONCHOSCOPY RIGID FLEX W COMPUTER ASSIST IMG NAVIGATION PRO [facility] EBUS GUIDED SAMPL 3/> NODE STATION/STRUX BRONCHOSCOPY,RIGID OR FLEX,WITH IMAGE GUIDANCE ( ROBOT / ION ) (WRVU 2) BRONCH, W ENDOBRONCHIAL ULTRASOUND (EBUS) GUIDED SAMPLING, 3+ NODES (WRVU 4.96) Tommy Britt MD [facility] [place] [address] [facility] Referral ID Status Reason Start Date Expiration Date Visits Re quested Visits Authorized [id number] 1 1 Encounter Details Date Type Department Care Team (Latest Contact Info) Description 05/07/2023 10:07 AM EDT - 05/07/2023 1:46 PM EDT Hospital Encounter [place] [address] Tommy Britt MD [facility] [place] [address] Discharge Disposition: Home Social History Tobacco Use [...] Sign Reading Time Taken Comments Blood Pressure 99/57 05/07/2023 1:00 PM EDT Pulse 60 05/07/2023 12:45 PM EDT Temperature 36.4 ??C (97.5 ??F) 05/07/2023 1:00 PM ED T Respiratory Rate 16 05/07/2023 1:15 PM EDT Oxygen Saturation 95% 05/07/2023 1:00 PM EDT Inhaled Oxygen Concentration - - Weight 73.1 kg (161 lb 3.2 oz) 05/07/2023 10:22 AM EDT Height 175.3 cm (5' 9) 05/07/2023 10:22 AM EDT Body Mass Index 23.81 05/07/2023 10:22 AM EDT documented in this encounter Discharge Instructions * Patient Instructions* Tommy Britt MD - 05/07/2023 11:59 AM EDT Post-bronchoscopy patient instruction: Your bronchoscopy was completed successfully today (05/07/2023) by Dr. Tommy Britt. We will be in contact with you to discuss your results as they return over the coming 3-5 business days. You may experience low grade fevers over the next 48 hours. You may cough up a small amount of blood. This is normal. You may have a sore throat, chest discomfort, hoarse voice, or have a tickle in your throat or a dry cough for a day or two. This is normal and usually gets better quickly. Using cough drops or gargling with warm salt water may help. Call our office immediately or present to the nearest emergency room if you develop shortness of breath, pain in your chest, coughing up large amounts of blood (about 1-2 tablespoons), or fever/chills last longer than 48 hours. If you have any questions, please call our office at . There is someone transition nurse to speak with 10/09. Tommy Britt MD, 05/07/2023, 11:59 AM Interventional Pulmonology Section of Pulmonary & Critical Care documented in this encounter Medications at Time of Discharge Medication Sig Dispensed Refills Start Date End Date methadone (Dolophine) 10 mg/mL oral concentrateIndications:o pioid dependence Take 10-12 mLs by mouth 2 times daily. Receives Methadone 120 mg qAM, 100 mg qPM from [facility] methadone clinic in [facility]. This dose was confirmed with Dr. Monika Hamlin (clinic medical accounts receivable specialist) on 04/13/2023. Indications: dependence on opioid-type drugs 04/13/2023 documented as of this encounter H&P Notes * Tommy Britt MD - 05/07/2023 10:21 AM EDT Interventional Pulmonology Pre-Procedure History & Physical SECTION OF PULMONARY/CRITICAL CARE MEDICIE Procedure: Robotic-assisted bronchoscopy, transbronchial lung biopsies, endobronchial ultrasound (EBUS) Reason for procedure: Lung mass See last note from Dr. Washington. PHYSICAL EXAM: No data found. Mental Status: Alert and oriented x3 Airway examination: Feasible Pulmonary: Clear to ausculation bilaterally CV: RRR, no murmurs or gallops ASA Grade: ASA III (Patient has severe systemic disease that is not incapacitating) Assessment & Plan: Risks, benefits and alternatives of the procedure were explained and all questions were answered Consent to be signed Proceed with procedure as stated Tommy Britt MD, 05/07/2023, 10:22 AM Interventional Pulmonology Section of Pulmonary & Critical Care Pager: [phone] Source Note - Avila Washington MD - 04/18/2023 1:00 PM EST Images from the original note were not included. INTERVENTIONAL PULMONOLOGY OUTPATIENT CONSULT NOTE SECTION OF PULMONARY & CRITICAL CARE MEDICINE PATIENT NAME: Corey Santos : 1990 MEDICAL RECORD: [id number] DATE OF SERVICE: 04/18/2023 REFERRING PHYSICIAN: Daphne [...] history of tobacco use. He works in [employer] x6 months - there is significant exposure [...] I finished the antibiotics prescribed by [facility]. He and his mother noticed worsening dyspnea [...] [facility] methadone clinic in [facility]. This dose was confirmed with Dr. Monika Hamlin (clinic medical accounts receivable specialist) on 04/13/2023. Indications: dependence on opioid-type [...] EtOH: None Other drugs: Reports none Employment: [employer] Occupational exposures: Dusts/fumes PFTS: None on file [...] scheduled for 04/25/23 (+/- TBBx, +/- EUS-B) MR brain wwo ordered and scheduled for 04/23/23 [...] Section of Pulmonary & Critical Care Pager: [phone] documented in this encounter Miscellaneous Notes * Op Note - Tommy Britt MD - 05/07/2023 11:18 AM EDT Images from the original note were not included. Interventional Pulmonology Robotic Bronchoscopy with EBUS-TBNA Operative Note SECTION OF PULMONARY & CRITICAL CARE MEDICINE PROCEDURE: Bronchoscopy with EBUS-Guided Transbronchial Needle Aspiration, robotic and radial EBUS guided TBNA, TBBx, BAL Date / Time: 05/07/2023 / 11:56 AM Location: OR Procedure Attending: Dr. Britt was present for [...] and side (laterality). PROCEDURE IN DETAIL: The P190 bronchoscope was inserted into the ETT. The trachea, bilateral mainstem bronchi, and the bilateral segmental bronchi were all visualized and no obvious endobronchial lesions were noted on the right, again seen was narrowing of the apical ROMA. The bronchoscope was removed. The 8hands robotic system was used for pre-procedure planning, including 3D rendering with image post-processing on an independent workstation. The 8hands robotic system was then used for intra- procedure navigation to the ROMA mass. Under radial EBUS and fluoro control TBNA, TBBx and BAL were obtained (for micro, cyto, path, fungitel and flow). Of note, the combination of TNBA and TBBx was utilized as per standard of care to increase diagnostic yield and obtain adequate tissue for mutation analysis (Alexa et al, WCFPI1161; 28:174; Ost et al, Am J Respir Crit Care Med 2016;193:6; Erica et al, Eur Respir J 1995;8:963). The robotic bronchoscope was removed and the EBUS scope inserted. EBUS confirmed the presence of an enlarged node at stations 4R, 7, 4L and 11L. Multiple passes with EBUS TBNA were performed at 11Lfor cytopath and flow (other nodes were not sampled as they were recently sampled). Note, all mediastinal, hilar, lobar and segmental stations were evaluated during the procedure and those not listedwere not biopsied due to lymph node diameter < 5mm or node not visualized. Following this, hemostasis was confirmed, the procedure was terminated and the bronchoscope was withdrawn. Estimated Blood Loss: Minimal COMPLICATIONS: No immediate complications noted POST-PROCEDURE DIAGNOSIS: same SPECIMENS REMOVED: Yes RECOMMENDATIONS: Await pathology results Tommy Britt MD Chief, Section of Pulmonary and Critical Care Medicine [facility] [address] Dept Room [address] [place] [address] Phone Pul Generic: [phone] [email or web address] Pager #[phone] documented in this encounter Plan of Treatment Not on file documented as of this encounter Procedures Procedure Name Priority Date/Time Associated Diagnosis Comments XR FLUORO NO RAD <1HR - OR USE Routine 05/07/2023 12:49 PM EDT XR CHEST ONE VIEW STAT 05/07/2023 12: 22 PM EDT IMMUNOPHENOTYPING FLOW CYTOMETRY (BLOOD) Routine 05/07/2023 11:54 AM EDT FLOW CYTOMETRY REPORT Routine 05/07/2023 11:54 AM EDT NON-EMR ANALYST FINAL REPORT Routine 05/07/2023 11:53 AM EDT CYTOPATHOLOGY NON-GYNECOLOGICAL Routine 05/07/2023 11:53 AM EDT AFB CULTURE Routine 05/07/2023 11:50 AM EDT LOWER RESPIRATORY CULTURE Routine 2023 11:50 AM EDT FUNGUS CULTURE Routine 05/07/2023 11:50 AM EDT [employer], BAL Routine 05/07/2023 1 1:39 AM EDT IMMUNOPHENOTYPING FLOW CYTOMETRY (BLOOD) Routine 05/07/2023 11:39 AM EDT FLOW CYTOMETRY REPORT Routine 05/07/2023 11:39 AM EDT AFB CULTURE Routine 05/07/2023 11:39 AM EDT TISSUE CULTURE Routine 05/07/2023 11:39 AM EDT FUNGUS CULTURE Routine 05/07/2023 11:39 AM EDT SURGICAL PATHOLOGY REPORT Routine 2023 11:38 AM EDT SPECIMEN TO PATHOLOGY Routine 05/07/2023 11:38 AM EDT NON-EMR ANALYST FINAL REPORT Routine 05/07/2023 11:33 AM EDT CYTOPATHOLOGY NON-GYNECOLOGICAL Routine 05/07/2023 11:33 AM EDT AFB CULTURE Routine 05/07/2023 11:28 AM EDT TISSUE CULTURE Routine 05/07/2023 11:28 AM EDT FUNGUS CULTURE Routine 05/07/2023 11:28 AM EDT SPECIMEN TO PATHOLOGY Routine 05/07/2023 11:27 AM EDT NON-EMR ANALYST FINAL REPORT Routine 05/07/2023 11:07 AM EDT CYTOPATHOLOGY NON-GYNECOLOGICAL Routine 05/07/2023 11:07 AM EDT Bronchoscopy, Diagnostic W Lavage ([id number]) Yes 05/07/2023 11:01 AM EDT Pulmonary nodules Bronchoscopy, Transbron Aspir Bx ([id number]) Yes 05/07/2023 11:01 AM EDT [facility] Dx/Tx Intervention Perph Les ([id number]) Yes 05/07/2023 11:01 AM EDT Pulmonary nodules [facility] Ebus Guided Sampl 1/2 Node Station/Strux ([id number]) Yes 05/07/2023 11:01 AM EDT Pulmonary nodules Bronchoscopy Rigid Flex W Computer Assist Img Navigation ([id number]) Yes 05/07/2023 11:01 AM EDT Pulmonary nodules documented in this encounter Results * XR Fluoro No Rad <1Hr - OR Use (05/07/2023 12:49 PM EDT) Narrative Dicom, Auditing User - 05/07/2023 12:50 PM EDT This exam is auto-finalizing. No interpretation was done. Tommy Britt MD IMG FLUORO KAYLINRiana PABLODINORAH * XR Chest One View (05/07/2023 12:22 PM EDT) Anatomical Region Laterality Modality Chest N/A Digital Radiogra phy Impressions 05/07/2023 12:38 PM EDT No pneumothorax status post transbronchial biopsy with medial left upper lobe consolidation similar to prior, with slight increase in right lower lobe atelectasis. Thank you for letting us participate in the care of this patient. ??If you are a health care provider and have any questions regarding this report, please contact the number below. ??For patients who have questions please contact the health critical care paramedic that requested your imaging first. ? Electronically signed by: Amanda Mckeon MD, [facility] ??([phone]), at 05/07/2023 12:38 PM Narrative 05/07/2023 12:38 PM EDT EXAMINATION: XR CHEST ONE VIEW CLINICAL HISTORY: s/p TBBx left evaluate for pneumothorax TECHNIQUE: 1 view of the chest COMPARISON: CT 05/07/2023 FINDINGS: Medial left upper lobe opacity is noted. There is no pneumothorax status post biopsy. There is mild patchy right lower lobe opacity which is likely due to atelectasis. No significant pleural fluid collection. The cardiomediastinal silhouette is normal. Procedure Note Amanda Mckeon MD - 05/07/2023 EXAMINATION: XR CHEST ONE VIEW CLINICAL HISTORY: s/p TBBx left evaluate for pneumothorax TECHNIQUE: 1 view of the chest COMPARISON: CT 05/07/2023 FINDINGS: Medial left upper lobe opacity is noted. There is no pneumothorax statuspost biopsy. There is mild patchy right lower lobe opacity which is likely dueto atelectasis. No significant pleural fluid collection. The cardiomediastinal silhouette is normal. IMPRESSION No pneumothorax status post transbronchial biopsy with medial left upperlobe consolidation similar to prior, with slight increase in right lower lobe atelectasis. Thank you for letting us participate in the care of this patient. If youare a health care provider and have any questions regarding this report,please contact the number below. For patients who have questions please contactthe health critical care paramedic that requested your imaging first. Tommy Britt MD IMG DX ORDERABL ES * Flow Cytometry Report (05/07/2023 11:54 AM EDT) Flow Cytometry Report [id number] ? Location: [facility]; [facility]; The signing pathologist has (i) examined the relevant preparation(s) for the specimen(s) and (ii) rendered or confirmed the diagnosis(es). . ?Flow Cytometry DIAGNOSIS Flow cytometric diagnosis: ?? Normal immunophenotyping results. No monotypic B-cell population or phenotypically abnormal T-cell population or increase in blasts is detected. Please see morphology report for final delineation. ??NOTE: Some lymphomas are not detected by flow analysis. ?? This analysis does not exclude nonhematologic malignancies . Electronically signed by: ?Joanna SOLIS, Melvin Verified: ??05/08/2023 12:11 ??Hematopathologist Performed at: ??-[facility] Dept. of [place]ology, [place] [address] [employer] Finisher: Annie Whittaker MD, FCAP, ??CLIA Certificate: [id number] DISCUSSION Blasts based on CD45 expression and orthogonal light scatter, are not increased. ??The CD19 positive B-cells have a polytypic expression of surface immunoglobulin light chain ([place]:Lambda ratio at 1.4). The T-cells are an admixture of CD4+ and CD8+ T lymphocytes (ratio of 2). No loss or atypical intensity distributions are seen for any mejia T antigen (CD2, 3, 4+8, 5, 7). There is no increase in OU52-hrsrkuts/CD3-ne g NK cells. Flow analysis is an ancillary study. A definite diagnosis requires correlation with the morphologic features of this process and if necessary, correlation with other ancillary studies like immunohistochemistry , enzyme cytochemistry and/or cyto/ molecular genetics. This test was developed and its performance characteristics determined by the Clinical Flow Cytometry Laboratory at [facility]. It has not been cleared or approved [...] high complexity clinical laboratory testing. SPECIMEN PROCESSING [id number] Cells for immunophenotypic analysis were derived from lymph node station 4L. CD45 vs side scatter gating was utilized to identify a lymphoid analysis region that comprises approximately 90-91% of all cells. The following markers were assessed: CD2, CD3, CD4, CD5, CD7, CD8, CD10, CD19, CD45, CD56, kappa light chain, and lambda light chain. CLINICAL INFORMATION adenopathy [facility] 05/07/2023 11:5 4 AM EDT Tommy Britt MD PATHOLOGY/CYTOL OGY ORDERABLES [facility] [place] [address] * Immunophenotyping Flow Cytometry (05/07/2023 11:54 AM EDT) Immunophenotyping Flow See Comment [facility] Comment: When completed by the Pathologist, the Flow Cytometry Report ([id number]) will display under the Pathology Results section within [facility]. Other 05/07/2023 11:5 4 AM EDT 05/07/2023 12:22 PM EDT Narrative Resulting Agency Comment Spec In Lab Tommy Britt MD HEMATOLOGY [facility] [place] [address] * Non-Stuffer Final Report (05/07/2023 11:53 AM EDT) Diagnosis Discussion [id number] ? Location: [facility]; [facility]; A The signing pathologist has (i) examined the relevant preparation(s) for the specimen(s) and (ii) rendered or confirmed the diagnosis(es). . ? Non-Stuffer Final DIAGNOSIS See Discussion Electronically signed by: ?Trena SOLIS, Steve Blank Verified: ??05/08/2023 10:31 ??Cytopathologis t Performed at: ??-[facility] Dept. of Pathology, [place] [address] [employer] Finisher: Annie Whittaker MD, FCAP, ??CLIA Certificate: [id number] DISCUSSION Lymph node: station 4L (EBUS-guided FNA) - Lymphoid tissue present; compatible with lymph node sampling. Negative for metastatic carcinoma. (Cell block was examined.) CLINICAL INFORMATION Specimen Source : Lymph node: station 4L (EBUS-guided FNA) Pertinent Clinical Data and Significant Therapy: Left upper lobe mass Clinical Impression : Infection vs. malignancy Pertinent Radiologic Findings ??: (not provided) Gross Description: Received ??in Formalin approximately 48 mL total volume of ?? cloudy, bloody fluid, with clots. Total Preparation: Cell Block 1. 05/08/2023 10:31 AM EDT [facility] LYMPH NODE SPECIMEN / Unknown 05/07/2023 11:53 AM EDT 05/07/2023 11:53 AM EDT Tommy Britt MD PATHOLOGY/CYTOL OGY ORDERABLES [facility] [place], [place] [id number] [place] [address] [place] [address] * Cytopathology Non-Gynecological (05/07/2023 11:53 AM EDT) AP Specimen 05/07/2023 11:5 3 AM EDT 05/07/2023 11:53 AM EDT Narrative [facility] - 05/07/2023 11:53 AM EDT Specimen requisition ordered. ??Separate Pathology report to follow Tommy Britt MD PATHOLOGY/CYTOL OGY ORDERABLES [facility] [place] [address] * Fungus culture Lung (05/07/2023 11:50 AM EDT) Fungus Culture No Fungus isolated [facility] Lung 05/07/2023 11:5 0 AM EDT 05/07/2023 1:31 PM EDT Comment:BAL left upper lobe Narrative Resulting Agency Comment Spec In Lab Tommy Britt MD MICROBIOLOGY - GENERAL ORDERABLES [facility] [place] [address] * AFB culture Lung (05/07/2023 11:50 AM EDT) Acid Fast Bacilli Culture No Acid Fast Bacilli isolated If active tuberculosis is suspected, the patient should be on [employer]. Call Infection Prevention for assistance if needed. [facility] Acid Fast Stain No Acid Fast Bacilli seen [facility] Lung 05/07/2023 11:5 0 AM EDT 05/07/2023 1:31 PM EDT Comment:BAL left upper lobe Narrative Resulting Agency Comment Spec In Lab Tommy Britt MD MICROBIOLOGY - GENERAL ORDERABLES Performing Organization Address [facility] Co de Phone Number [facility] [place] [address] * Lower Respiratory Culture Bronchial Alveolar Lavage (05/07/2023 11:50 AM EDT) Pathologist [facility] Lower Respiratory Culture Rare mixed bacterial morphotypes suggestive of normal upper respiratory jimy [facility] Gram Stain Moderate Neutrophils seen No squamous epithelial cells seen No microorganisms seen. [facility] Bronchial Alveolar Lavage 05/07/2023 11:50 AM EDT 05/07/2023 1:31 PM EDT Comment:BAL left upper lobe Narrative Resulting Agency Comment Spec In Lab Tommy Britt MD MICROBIOLOGY - GENERAL ORDERABLES Performing Organization Address [facility] Co de Phone Number [facility] [place] [address] * Flow Cytometry Report (05/07/2023 11:39 AM EDT) Pathologist [facility] Flow Cytometry Report [id number] ? Location: [facility]; [facility]; The signing pathologist has (i) examined the relevant preparation(s) for the specimen(s) and (ii) rendered or confirmed the diagnosis(es). . ?Flow Cytometry DIAGNOSIS Flow cytometric diagnosis: ?? No ??B-cell population or phenotypically abnormal T-cell population or increase in blasts is detected. Electronically signed by: ?Joanna SOLIS, Melvin Verified: ??05/08/2023 12:04 ??Hematopathologist Performed at: ??-[facility] Dept. of Pathology, [place] [address] [employer] Finisher: Annie Whittaker MD, FCAP, ??CLIA Certificate: [id number] DISCUSSION Blasts based on CD45 expression and orthogonal light scatter, are not increased. CD19 positive B-lymphocytes are too few/absent, which precludes further delineation by Ig light chains. The T-cells are an admixture of CD4+ and CD8+ T lymphocytes (ratio of 2.3). No loss or atypical intensity distributions are seen for any mejia T antigen (CD2, 3, 4+8, 5, 7). There is no increase in ZS77-inqorriq/CD3-n eg NK cells. Flow analysis is an ancillary study. A definite diagnosis requires correlation with the morphologic features of this process and if necessary, correlation with other ancillary studies like immunohistochemistr y, enzyme cytochemistry and/or cyto/ molecular genetics. This test was developed and its performance characteristics determined by the Clinical Flow Cytometry Laboratory at [facility]. It has not been cleared or approved [...] high complexity clinical laboratory testing. SPECIMEN PROCESSING [id number] Cells for immunophenotypic analysis were derived from BAL left upper lobe. CD45 vs side scatter gating was utilized to identify a lymphoid analysis region that comprises approximately 4% of all cells. The following markers were assessed: CD2, CD3, CD4, CD5, CD7, CD8, CD10, CD19, CD45, CD56, kappa light chain, and lambda light chain. CLINICAL INFORMATION Left upper lobe lesion [facility] 05/07/2023 11:3 9 AM EDT Tommy Britt MD PATHOLOGY/CYTOL OGY ORDERABLES [facility] [place] [address] * Aspergillus Ag, BAL (05/07/2023 11:39 AM EDT) Aspergillus Ag, Bal (JUNE) <0.500 <0.5 Index [facility] Comment: Results should be interpreted with caution as there was evidence of blood contamination in the BAL specimen. ADDITIONAL INFORMATION This is a qualitative test and the resulted index value is not indicative of disease severity. ??Serial testing is recommended for patients at high risk for invasive aspergillosis. This assay was performed using the FDA-cleared [facility] Aspergillus Galactomannan EIA. Test Performed by: [facility] [place] [address] Art Critic: Peter Spencer M.D. Ph.D.; CLIA# [id number] Bronchial Alveolar Lavage Other / Unknown 05/07/2023 11:39 AM EDT 05/07/2023 4:53 PM EDT Narrative Resulting Agency Comment Spec In Lab Tommy Britt MD LAB SEND OUT OR DERABLES Performing Organization Address City/[facility]/ZIP Co de Phone Number [facility] [place] [address] * (ABNORMAL) Tissue culture (05/07/2023 11:39 AM EDT) Pathologist [facility] Tissue Culture One colony of Coagulase negative Staphylococcus species : probable contaminant(A) [facility] Gram Stain Few Neutrophils seen No microorganisms seen. (A) [facility] Organism Coagulase negative Staphylococcus species(A) [facility] Lung 05/07/2023 11:3 9 AM EDT 05/07/2023 1:24 PM EDT Comment:forceps biopsy Narrative Resulting Agency Comment Spec In Lab Tommy Britt MD MICROBIOLOGY - GENERAL ORDERABLES Performing Organization Address City/[facility]/ZIP Co de Phone Number [facility] [place] [address] * Immunophenotyping Flow Cytometry (05/07/2023 11:39 AM EDT) Immunophenotyping Flow See Comment [facility] Comment: When completed by the Pathologist, the Flow Cytometry Report ([id number]) will display under the Pathology Results section within [facility]. Other 05/07/2023 11:3 9 AM EDT 05/07/2023 12:16 PM EDT Narrative Resulting Agency Comment Spec In Lab Tommy Britt MD HEMATOLOGY ORDRiana PABLOLES [facility] [place] [address] * Fungus culture Lung (05/07/2023 11:39 AM EDT) Fungus Culture No Fungus isolated [facility] Lung 05/07/2023 11:3 9 AM EDT 05/07/2023 1:21 PM EDT Comment:Left upper lobe forc eps biopsy Narrative Resulting Agency Comment Spec In Lab Tommy Britt MD MICROBIOLOGY - GENERAL ORDERABLES Performing Organization Address City/[facility]/ZIP Co de Phone Number [facility] [place] [phone] * AFB culture Lung (05/07/2023 11:39 AM EDT) Acid Fast Bacilli Culture No Acid Fast Bacilli isolated If active tuberculosis is suspected, the patient should be on AIRBORNE PRECAUTIONS. Call Infection Prevention for assistance if needed. [facility] Acid Fast Stain No Acid Fast Bacilli seen [facility] Lung 05/07/2023 11:3 9 AM EDT 05/07/2023 1:21 PM EDT Comment:Left upper lobe forc eps biopsy Narrative Resulting Agency Comment Spec In Lab Tommy Britt MD MICROBIOLOGY - GENERAL ORDERABLES Performing Organization Address City/[facility]/ZIP Co de Phone Number [facility] [place] [phone] * Surgical Pathology Report (05/07/2023 11:38 AM EDT) Final Diagnosis [id number] ? Location: [place]; [place]; A The signing pathologist has (i) examined the relevant preparation(s) for the specimen(s) and (ii) rendered or confirmed the diagnosis(es). . ?Surgical Pathology DIAGNOSIS A - Left upper lobe forceps biopsy: - Respiratory mucosa with no histopathologic abnormality. Electronically signed by: ?Terrell Dias MD Verified: ??05/09/2023 12:08 ??Pathologist Performed at: ??-[facility] [place], [place] [address] [employer] Finisher: Annie Whittaker MD, AP, ??CLIA Certificate: [id number] DISCUSSION Please see [id number] for concurrent FNA. The history of a left lung mass is noted. Clinical correlation with imaging is recommended to assess whether this biopsy is customer relations representative of the lung mass. ?? Multiple additional sections were examined, no definitive alveolar lung parenchyma is identified. SPECIMEN(S) SUBMITTED A - left upper lobe forceps biopsy, biopsy (1) CLINICAL INFORMATION Left upper lobe mass SPECIMEN PROCESSING A - Labeled/Fixative: Left upper lobe forceps biopsy, formalin. Quantity/Size: Fragments, 0.1 to 0.2 cm. Tissue Description: Focally hemorrhagic, wahl-pink soft tissues. Sections/Processin g: Entirely submitted in 1 cassette labeled A1. ??pps 05/09/2023 12:08 PM EDT [facility] LUNG STRUCTURE / Unknown 05/07/2023 11:38 AM EDT 05/07/2023 11:38 AM EDT Tommy Britt MD PATHOLOGY/CYTOL OGY ORDERABLES [facility] [place] [address] [facility] [place] [address] * Specimen to Pathology (05/07/2023 11:38 AM EDT) AP Specimen 05/07/2023 11:3 8 AM EDT 05/07/2023 11:38 AM EDT Narrative [facility] - 05/07/2023 11:38 AM EDT Specimen requisition ordered. ??Separate Pathology report to follow Tommy Britt MD PATHOLOGY/CYTOL OGY ORDERABLES [facility] [place] [address] * Non-Stuffer Final Report (05/07/2023 11:33 AM EDT) Diagnosis Discussion [id number] ? Location: [facility]; [facility]; The signing pathologist has (i) examined the relevant preparation(s) for the specimen(s) and (ii) rendered or confirmed the diagnosis(es). . ? Non-Stuffer Final DIAGNOSIS Negative for Malignancy Electronically signed by: ?Darrion SOLIS PhD, Hilario Blank Verified: ??05/09/2023 8:57 ?? Pathologist Performed at: ??-[facility] Dept. of Pathology, [place] [address] [employer] Finisher: Annie Whittaker MD, AP, ??CLIA Certificate: [id number] DISCUSSION Lung, left upper lobe (bronchial alveolar lavage): The specimen contains abundant neutrophils, pigment laden macrophages and bronchial cells. ??Cell block was examined. See note. Note: Special stain for fungi (GMS) is negative. CLINICAL INFORMATION Specimen Source : Lung, left upper lobe (bronchial alveolar lavage) Pertinent Clinical Data and Significant Therapy: Left upper lobe mass Clinical Impression : Infection v/s malignancy Pertinent Radiologic Findings ??: (not provided) Gross Description: Received ??fresh, approximately 5 mL total volume of ?? cloudy, bloody fluid, with clots. Total Preparation: Liquid-Based Prep 1; Cell Block 1. 05/09/2023 8:57 AM EDT [facility] BRONCHIAL STRUCTURE / Unknown 05/07/2023 11:33 AM EDT 05/07/2023 11:33 AM EDT Tommy Britt MD PATHOLOGY/CYTOL OGY ORDERABLES [facility] [address] [place] [address] * Cytopathology Non-Gynecological (05/07/2023 11:33 AM EDT) AP Specimen 05/07/2023 11:3 3 AM EDT 05/07/2023 11:33 AM EDT Narrative [facility] - 05/07/2023 11:33 AM EDT Specimen requisition ordered. ??Separate Pathology report to follow Tommy Britt MD PATHOLOGY/CYTOL OGY ORDERABLES [facility] [place] [address] * (ABNORMAL) Tissue culture (05/07/2023 11:28 AM EDT) Tissue Culture Rare Coagulase negative Staphylococcus species : probable contaminant(A) [facility] Gram Stain Few Neutrophils seen No squamous epithelial cells seen No microorganisms seen. (A) [facility] Organism Coagulase negative Staphylococcus species(A) [facility] Lung 05/07/2023 11:2 8 AM EDT 05/07/2023 1:24 PM EDT Comment:FNA left upper lobe Narrative Resulting Agency Comment Spec In Lab Tommy Britt MD MICROBIOLOGY - GENERAL ORDERABLES Performing Organization Address [facility] Co de Phone Number [facility] [place] [address] * Fungus culture Lung (05/07/2023 11:28 AM EDT) Fungus Culture No Fungus isolated [facility] Lung 05/07/2023 11:2 8 AM EDT 05/07/2023 1:27 PM EDT Comment:FNA left upper lobe Narrative Resulting Agency Comment Spec In Lab Tommy Britt MD MICROBIOLOGY - GENERAL ORDERABLES Performing Organization Address [facility] Co de Phone Number [facility] [place] [address] * AFB culture Lung (05/07/2023 11:28 AM EDT) Acid Fast Bacilli Culture No Acid Fast Bacilli isolated If active tuberculosis is suspected, the patient should be on AIRBORNE PRECAUTIONS. Call Infection Prevention for assistance if needed. [facility] Acid Fast Stain No Acid Fast Bacilli seen [facility] Lung 05/07/2023 11:2 8 AM EDT 05/07/2023 1:27 PM EDT Comment:FNA left upper lobe Narrative Resulting Agency Comment Spec In Lab Tommy Britt MD MICROBIOLOGY - GENERAL ORDERABLES Performing Organization Address [facility] Co de Phone Number [facility] [place] [address] * Specimen to Pathology (05/07/2023 11:27 AM EDT) AP Specimen 05/07/2023 11:2 7 AM EDT 05/07/2023 11:27 AM EDT Narrative [facility] - 05/07/2023 11:27 AM EDT Specimen requisition ordered. ??Separate Pathology report to follow Tommy Britt MD PATHOLOGY/CYTOL OGY ORDERABLES Performing Organization Address City/[facility]/ZIP Co de Phone Number [facility] [place] [address] * Non-Stuffer Final Report (05/07/2023 11:07 AM EDT) Diagnosis Discussion [id number] ? Location: [facility]; [facility]; The signing pathologist has (i) examined the relevant preparation(s) for the specimen(s) and (ii) rendered or confirmed the diagnosis(es). . ? Non-Stuffer Final DIAGNOSIS See Discussion Electronically signed by: ?Trena SOLIS, Steve Blank Verified: ??05/08/2023 14:37 ??Cytopathologis t Performed at: ??-[facility] Dept. of [place]ology, [place] [address] [employer] Finisher: Annie Whittaker MD, AP, ??CLIA Certificate: [id number] DISCUSSION Lung: left upper lobe (FNA) - Respiratory epithelial cells and macrophages present. No malignant cells seen. Recommend clinical correlation and follow-up as clinically indicated. (Cell block was examined.) CLINICAL INFORMATION Specimen Source : Lung: left upper lobe (FNA) Pertinent Clinical Data and Significant Therapy: Left upper lobe mass Clinical Impression : Infection vs. malignancy Pertinent Radiologic Findings ??: (not provided) Gross Description: Received ??in Formalin approximately 45 mL total volume of ?? clear, pink fluid, with light flecks. Total Preparation: Cell Block 1. 05/08/2023 2:37 PM EDT [facility] LEFT LUNG STRUCTURE / Unknown 05/07/2023 11:07 AM EDT 05/07/2023 11:07 AM EDT Tommy Britt MD PATHOLOGY/CYTOL OGY ORDERABLES Performing Organization Address [facility] Co de Phone Number [facility] [place] [address] ANA MARIA [facility] [place] [address] * Cytopathology Non-Gynecological (05/07/2023 11:07 AM EDT) AP Specimen 05/07/2023 11:0 7 AM EDT 05/07/2023 11:07 AM EDT Narrative [facility] - 05/07/2023 11:07 AM EDT Specimen requisition ordered. ??Separate Pathology report to follow Tommy Britt MD PATHOLOGY/[place] [address] documented in this encounter Visit Diagnoses Not on filedocumented in this encounter Active and Recently Administered Medications Times are shown in EDT. Continuous Medication Order 05/05/2023 05/06/2023 05/07/2023 lactated ringers infusion (CANCELED) 1,000 mL, at 100 mL/hr, Intravenous, CONTINUOUS, Starting on Sat05/07/23 at 1115, Until Sat05/07/23 at 1343, Day of Surgery (Day of Procedure) 1059 (New Bag - Prov ider: Elisabeth López)1157 (Anesthesia Volume Adjustment - Provider: Elisabeth López) documented in this encounter Care Teams Poultry Dressing Worker Relationship Specialty Start Date End Date None None PCP - General 04/13/23 documented as of this encounter
--- OUTSIDE RECORDS SUMMARY | 2023-11-15 19:51 | XMS_ITS | Encounter Summary ---
Author Organization Formerly [facility] Address [facility] [place] [address] Care Team Providers Care Plastic Finisher Name Role Phone None Primary Care Provider Unavailabl e Encounter Details Date Type Department Care Team (Latest Contact Info) Description 05/07/2023 Travel Social History Tobacco Use Types Packs/Day [...] on filedocumented in this encounter Care Teams Plastic Finisher Relationship Specialty Start Date End Date None None PCP - General 04/13/23 documented as of this encounter
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
--- OUTSIDE RECORDS SUMMARY | 2023-11-15 19:51 | XMS_ITS | Encounter Summary ---
Author Organization [facility] [place] [address] Care Team Providers Care Director Perioperative Name Role Phone None Primary Care Provider Unavailabl e Reason for Visit * Auth/Cert (Routine) Specialty Diagnoses / Procedures Referred By Contac t Referred To Contact Diagnoses Pulmonary nodules Pulmonary nodule(s)/ROBTIC BRONCH WITH EBUS/GA/BEVERLEY Procedures PRO BRONCHOSCOPY RIGID FLEX W COMPUTER ASSIST IMG NAVIGATION PRO [employer] EBUS GUIDED SAMPL 3/> NODE STATION/STRUX BRONCHOSCOPY,RIGID OR FLEX,WITH IMAGE GUIDANCE ( ROBOT / ION ) (WRVU 2) BRONCH, W ENDOBRONCHIAL ULTRASOUND (EBUS) GUIDED SAMPLING, 3+ NODES (WRVU 4.96) Tommy Britt MD [facility] [place] [address] [facility] Referral ID Status Reason Start Date Expiration Date Visits Re quested Visits Authorized [id number] 1 1 Encounter Details Date Type Department Care Team (Late st Contact Info) Description 05/07/2023 11:43 AM EDT - 05/07/2023 1:51 PM EDT [place] [address] Tommy Britt MD [facility] PULMONARY MEDICINE [place], [place] [id number] BRONCHOSCOPY,RIGID OR FLEX,WITH IMAGE GUIDANCE ( ROBOT / ION ) (WRVU 2) Social History Tobacco Use Types Packs/Day Years [...] our office at . There is someone care transitions nurse to speak with 10/09. Tommy Britt MD, 05/07/2023, 11:59 AM Interventional Pulmonology Section of Pulmonary & Critical Care documented in this encounter Medications at Time of Discharge Medication Sig Dispensed Refills Start Date End Date methadone (Dolophine) 10 mg/mL oral concentrateIndications:o pioid dependence Take 10-12 mLs by mouth 2 times daily. Receives Methadone 120 mg qAM, 100 mg qPM from [facility] methadone clinic in [facility]. This dose was confirmed with Dr. Monika Hamlin (clinic medical staffing coordinator) on 04/13/2023. Indications: dependence on opioid-type [...] Section of Pulmonary & Critical Care Pager: [phone] Source Note - Avila Washington MD - 04/18/2023 1:00 PM EST Images from the original note were not included. INTERVENTIONAL PULMONOLOGY OUTPATIENT CONSULT NOTE SECTION OF PULMONARY & CRITICAL CARE MEDICINE PATIENT NAME: Corey Santos : 1990 MEDICAL RECORD: [id number] DATE OF SERVICE: 04/18/2023 REFERRING PHYSICIAN: Daphne [...] history of tobacco use. He works in [employer] x6 months - there is significant exposure [...] 120 mg qAM, 100 mg qPM from [facility] methadone clinic in [facility]. This dose was confirmed with Dr. Monika Hamlin (clinic medical staffing coordinator) on 04/13/2023. Indications: dependence on opioid-type [...] EtOH: None Other drugs: Reports none Employment: [email or web address] Occupational exposures: Dusts/fumes PFTS: None on file [...] out work of a light nature). Mr. oCrey Santos was pr ovided ample time to [...] Section of Pulmonary & Critical Care Pager: [phone] documented in this encounter Miscellaneous Notes * [...] apical ROMA. The bronchoscope was removed. The [employer] robotic system was used for pre-procedure planning, including 3D rendering with image post-processing on an independent workstation. The [employer] robotic system was then used for intra- procedure navigation to the ROMA mass. Under radial EBUS and fluoro control TBNA, TBBx and BAL were obtained (for micro, cyto, path, fungitel and flow). Of note, the combination of TNBA and TBBx was utilized as per standard of care to increase diagnostic yield and obtain adequate tissue for mutation analysis (Alexa et al, [id number]; 28:174; Ost et al, Am J Respir [...] Section of Pulmonary and Critical Care Medicine [address] Room [address] [place] [address] Phone Pul Generic: [phone] [email or web address] Pager #[phone] documented in this encounter Plan of Treatment Not on file documented as of this encounter Procedures Procedure Name Priority Date/Time Associated Diagnosis Comments XR FLUORO NO RAD <1HR - OR USE Routine 05/07/2023 12:49 PM EDT XR CHEST ONE VIEW STAT 05/07/2023 12: 22 PM EDT IMMUNOPHENOTYPING FLOW CYTOMETRY (BLOOD) Routine 05/07/2023 11:54 AM EDT FLOW CYTOMETRY REPORT Routine 05/07/2023 11:54 AM EDT NON-SENIOR UX DEVELOPER FINAL REPORT Routine 05/07/2023 11:53 AM EDT [...] TO PATHOLOGY Routine 05/07/2023 11:38 AM EDT NON-SENIOR UX DEVELOPER FINAL REPORT Routine 05/07/2023 11:33 AM EDT CYTOPATHOLOGY NON-GYNECOLOGICAL Routine 05/07/2023 11:33 AM EDT AFB CULTURE Routine 05/07/2023 11:28 AM EDT TISSUE CULTURE Routine 05/07/2023 11:28 AM EDT FUNGUS CULTURE Routine 05/07/2023 11:28 AM EDT SPECIMEN TO PATHOLOGY Routine 05/07/2023 11:27 AM EDT NON-SENIOR UX DEVELOPER FINAL REPORT Routine 05/07/2023 11:07 AM EDT CYTOPATHOLOGY NON-GYNECOLOGICAL Routine 05/07/2023 11:07 AM EDT Bronchoscopy, Diagnostic W Lavage ([id number]) Yes 05/07/2023 11:01 AM EDT Pulmonary nodules Bronchoscopy, Transbron Aspir Bx ([id number]) Yes 05/07/2023 11:01 AM EDT [facility]Tx [facility] Perph Les ([id number]) Yes 05/07/2023 11:01 AM EDT Pulmonary nodules [facility] Ebus Guided Sampl 1/2 Node Station/Strux (70436) Yes 05/07/2023 11:01 AM EDT Pulmonary nodules Bronchoscopy Rigid Flex W Computer Assist Img Navigation (05641) Yes 05/07/2023 11:01 AM EDT Pulmonary nodules documented in this encounter Results * XR Fluoro No Rad <1Hr - OR Use (05/07/2023 12:49 PM EDT) Narrative Dicom, Auditing User - 05/07/2023 12:50 PM EDT This exam is auto-finalizing. No interpretation was done. Tommy Britt MD IMG FLUORO MERRILL MCKEON * XR Chest One View (05/07/2023 12:22 [...] who have questions please contact the health wound care technician that requested your imaging first. ? Electronically signed by: Amanda Mckeon MD, [facility] ??([phone]), at 05/07/2023 12:38 PM Narrative 05/07/2023 12:38 [...] patients who have questions please contactthe health wound care technician that requested your imaging first. Electronically signed by: Amanda Mckeon MD, [facility]([phone]), at 05/07/2023 12:38 PM Tommy Britt MD IMG DX ORDERABL ES * Flow Cytometry Report (05/07/2023 11:54 AM EDT) Flow Cytometry Report [id number] ? Location: [facility]; [facility] [[email or web address]]; A The signing pathologist has (i) examined [...] Melvin Verified: ??05/08/2023 12:11 ??Hematopathologist Performed at: ??-[facility] Dept. of [place]ology, [place] [address] Excavator Operator: Annie Whittaker MD, FCAP, ??CLIA Certificate: [id number] DISCUSSION Blasts based on CD45 expression and orthogonal light scatter, are not increased. ??The CD19 positive B-cells have a polytypic expression of surface immunoglobulin light chain (Crenshaw:Lambda ratio at 1.4). The T-cells are an admixture of CD4+ and CD8+ T lymphocytes (ratio of 2). No loss or atypical intensity distributions are seen for any mejia T antigen (CD2, 3, 4+8, 5, 7). There is no increase in BS09-znddjbmf/CD3-ne g NK cells. Flow analysis is an ancillary study. A definite diagnosis requires correlation with the morphologic features of this process and if necessary, correlation with other ancillary studies like immunohistochemistry , enzyme cytochemistry and/or cyto/ molecular genetics. This test was developed and its performance characteristics determined by the Clinical Flow Cytometry Laboratory at [facility]. It has not been cleared [...] high complexity clinical laboratory testing. SPECIMEN PROCESSING [id number] Cells for immunophenotypic analysis were derived from lymph node station 4L. CD45 vs side scatter gating was utilized to identify a lymphoid analysis region that comprises approximately 90-91% of all cells. The following markers were assessed: CD2, CD3, CD4, CD5, CD7, CD8, CD10, CD19, CD45, CD56, kappa light chain, and lambda light chain. CLINICAL INFORMATION adenopathy [facility] 05/07/2023 11:5 4 AM EDT Tommy Britt MD PATHOLOGY/CYTOL OGY ORDERABLES [facility] [place] [address] * Immunophenotyping Flow Cytometry (05/07/2023 11:54 AM EDT) Immunophenotyping Flow See Comment [facility] Comment: When completed by the Pathologist, the Flow Cytometry Report ([id number]) will display under the Pathology Results section within [facility]. Other 05/07/2023 11:5 4 AM EDT 05/07/2023 12:22 PM EDT Narrative Resulting Agency Comment Spec In Lab Tommy Britt MD HEMATOLOGY MERRILL MCKEON [facility] [place] [address] * Non-Conversion Worker Final Report (05/07/2023 11:53 AM EDT) Diagnosis Discussion [id number] ? Location: [facility]; [facility] [[email or web address]]; A The signing pathologist has (i) examined the relevant preparation(s) for the specimen(s) and (ii) rendered or confirmed the diagnosis(es). . ? Non-Conversion Worker Final DIAGNOSIS See Discussion Electronically signed by: ?Steve Albrecht MD Verified: ??05/08/2023 10:31 ??Cytopathologis t Performed at: ??-[facility] Dept. of Pathology, [place] [address] Excavator Operator: Annie Whittaker MD, FCAP, ??CLIA Certificate: [id number] DISCUSSION Lymph node: station 4L (EBUS-guided FNA) [...] Cell Block 1. 05/08/2023 10:31 AM EDT [facility] LYMPH NODE SPECIMEN / Unknown 05/07/2023 11:53 AM EDT 05/07/2023 11:53 AM EDT Tommy Britt MD PATHOLOGY/CYTOL OGY ORDERABLES [facility] [place] [address] [facility] [place] [address] * Cytopathology Non-Gynecological (05/07/2023 11:53 AM EDT) AP Specimen 05/07/2023 11:5 3 AM EDT 05/07/2023 11:[address] [facility] - 05/07/2023 11:53 AM EDT Specimen requisition ordered. ??Separate Pathology report to follow Tommy Britt MD PATHOLOGY/CYTOL OGY ORDERABLES Performing Organization Address City/[facility]/ZIP Co de Phone Number [facility] [place] [address] * Fungus culture Lung (05/07/2023 11:50 AM EDT) Fungus Culture No Fungus isolated [facility] Lung 05/07/2023 11:5 0 AM EDT 05/07/2023 1:31 PM EDT Comment:BAL left upper lobe Narrative Resulting Agency Comment Spec In Lab Tommy Britt MD MICROBIOLOGY - GENERAL ORDERABLES Performing Organization Address City/[facility]/ZIP Co de Phone Number [facility] [place] [address] * AFB culture Lung (05/07/2023 11:50 AM EDT) Acid Fast Bacilli Culture No Acid Fast Bacilli isolated If active tuberculosis is suspected, the patient should be on AIRBORNE PRECAUTIONS. Call Infection Prevention for assistance if needed. [facility] Acid Fast Stain No Acid Fast Bacilli seen [facility] Lung 05/07/2023 11:5 0 AM EDT 05/07/2023 1:31 PM EDT Comment:BAL left upper lobe Narrative Resulting Agency Comment Spec In Lab Tommy Britt MD MICROBIOLOGY - GENERAL ORDERABLES Performing Organization Address [facility] Co de Phone Number [facility] [place] [address] * Lower Respiratory Culture Bronchial Alveolar Lavage (05/07/2023 11:50 AM EDT) Pathologist [facility] Lower Respiratory Culture Rare mixed bacterial morphotypes suggestive of normal upper respiratory jimy [facility] Gram Stain Moderate Neutrophils seen No squamous epithelial cells seen No microorganisms seen. [facility] Bronchial Alveolar Lavage 05/07/2023 11:50 AM EDT 05/07/2023 1:31 PM EDT Comment:BAL left upper lobe Narrative Resulting Agency Comment Spec In Lab Tommy Britt MD MICROBIOLOGY - GENERAL ORDERABLES Performing Organization Address [facility] Co de Phone Number [facility] [address] * Flow Cytometry Report (05/07/2023 11:39 AM EDT) Flow Cytometry Report [id number] ? Location: [facility]; [facility] [[email or web address]]; A The signing pathologist has (i) examined the relevant preparation(s) for the specimen(s) and (ii) rendered or confirmed the diagnosis(es). . ?Flow Cytometry DIAGNOSIS Flow cytometric diagnosis: ?? No ??B-cell population or phenotypically abnormal T-cell population or increase in blasts is detected. Electronically signed by: ?Joanna SOLIS, Melvin Verified: ??05/08/2023 12:04 ??Hematopathologist Performed at: ??-[facility] Dept. of Pathology, [place] [address] Excavator Operator: Annie Whittaker MD, FCAP, ??CLIA Certificate: [id number] DISCUSSION Blasts based on CD45 expression and [...] 5, 7). There is no increase in FT51-bpprrybb/CD3-n eg NK cells. Flow analysis is an ancillary study. A definite diagnosis requires correlation with the morphologic features of this process and if necessary, correlation with other ancillary studies like immunohistochemistr y, enzyme cytochemistry and/or cyto/ molecular genetics. This test was developed and its performance characteristics determined by the Clinical Flow Cytometry Laboratory at [facility]. It has not been cleared [...] high complexity clinical laboratory testing. SPECIMEN PROCESSING [id number] Cells for immunophenotypic analysis were derived from BAL left upper lobe. CD45 vs side scatter gating was utilized to identify a lymphoid analysis region that comprises approximately 4% of all cells. The following markers were assessed: CD2, CD3, CD4, CD5, CD7, CD8, CD10, CD19, CD45, CD56, kappa light chain, and lambda light chain. CLINICAL INFORMATION Left upper lobe lesion [facility] 05/07/2023 11:3 9 AM EDT Tommy Britt MD PATHOLOGY/CYTOL OGY ORDERABLES [facility] [place] [address] * Aspergillus Ag, BAL (05/07/2023 11:39 AM EDT) Aspergillus Ag, Bal (JUNE) <0.500 <0[address] [facility] Comment: Results should be interpreted with caution as there was evidence of blood contamination in the BAL specimen. ADDITIONAL INFORMATION This is a qualitative test and the resulted index value is not indicative of disease severity. ??Serial testing is recommended for patients at high risk for invasive aspergillosis. This assay was performed using the FDA-cleared [employer] Platelia Aspergillus Galactomannan EIA. Test Performed by: [address] [address] Lab[place]: Peter Spencer M.D. Ph.D.; CLIA# [id number] Bronchial Alveolar Lavage Other / Unknown 05/07/2023 11:39 AM EDT 05/07/2023 4:53 PM EDT Narrative Resulting Agency Comment Spec In Lab Tommy Britt MD LAB SEND OUT OR DERABLES Performing Organization Address City/[facility]/ZIP Co de Phone Number [facility] [address] * (ABNORMAL) Tissue culture (05/07/2023 11:39 AM EDT) Tissue Culture One colony of Coagulase negative Staphylococcus species : probable contaminant(A) [facility] Gram Stain Few Neutrophils seen No microorganisms seen. (A) [facility] Organism Coagulase negative Staphylococcus species(A) [facility] Lung 05/07/2023 11:3 9 AM EDT 05/07/2023 1:24 PM EDT Comment:forceps biopsy Narrative Resulting Agency Comment Spec In Lab Tommy Britt MD MICROBIOLOGY - GENERAL ORDERABLES Performing Organization Address City/[facility]/ZIP Co de Phone Number [facility] [place] [address] * Immunophenotyping Flow Cytometry (05/07/2023 11:39 AM EDT) Immunophenotyping Flow See Comment [facility] Comment: When completed by the Pathologist, the Flow Cytometry Report ([id number]) will display under the Pathology Results section within [facility]. Other 05/07/2023 11:3 9 AM EDT 05/07/2023 12:16 PM EDT Narrative Resulting Agency Comment Spec In Lab Tommy Britt MD HEMATOLOGY ORDE SAMYLES [facility] [place] [address] * Fungus culture Lung (05/07/2023 11:39 AM EDT) Fungus Culture No Fungus isolated [facility] Lung 05/07/2023 11:3 9 AM EDT 05/07/2023 1:21 PM EDT Comment:Left upper lobe forc eps biopsy Narrative Resulting Agency Comment Spec In Lab Tommy Britt MD MICROBIOLOGY - GENERAL ORDERABLES Performing Organization Address City/[facility]/ZIP Co de Phone Number [facility] [place] [address] * AFB culture Lung (05/07/2023 11:39 AM EDT) Acid Fast Bacilli Culture No Acid Fast Bacilli isolated If active tuberculosis is suspected, the patient should be on AIRBORNE PRECAUTIONS. Call Infection Prevention for assistance if needed. [facility] Acid Fast Stain No Acid Fast Bacilli seen [facility] Lung 05/07/2023 11:3 9 AM EDT 05/07/2023 1:21 PM EDT Comment:Left upper lobe forc eps biopsy Narrative Resulting Agency Comment Spec In Lab Tommy Britt MD MICROBIOLOGY - GENERAL ORDERABLES [facility] [place] [id number] * Surgical Pathology Report (05/07/2023 11:38 AM EDT) Final Diagnosis [id number] ? Location: [facility]; [facility] [[email or web address]]; A The signing pathologist has (i) examined the relevant preparation(s) for the specimen(s) and (ii) rendered or confirmed the diagnosis(es). . ?Surgical Pathology DIAGNOSIS A - Left upper lobe forceps biopsy: - Respiratory mucosa with no histopathologic abnormality. Electronically signed by: ?Terrell Dias MD Verified: ??05/09/2023 12:08 ??Pathologist Performed at: ??-[facility] Dept. of [place]ology, [place] [address] Excavator Operator: Annie Whittaker MD, FCAP, ??CLIA Certificate: [id number] DISCUSSION Please see [id number] for concurrent FNA. The history of a left lung mass is noted. Clinical correlation with imaging is recommended to assess whether this biopsy is account retention representative of the lung mass. ?? Multiple [...] labeled A1. ??pps 05/09/2023 12:08 PM EDT [facility] LUNG STRUCTURE / Unknown 05/07/2023 11:38 AM EDT 05/07/2023 11:38 AM EDT Tommy Britt MD PATHOLOGY/CYTOL OGY ORDERABLES Performing Organization Address City/[facility] Co de Phone Number [facility] [address] [facility] [place] [address] * Specimen to Pathology (05/07/2023 11:38 AM EDT) AP Specimen 05/07/2023 11:3 8 AM EDT 05/07/2023 11:[address] [facility] - 05/07/2023 11:38 AM EDT Specimen requisition ordered. ??Separate Pathology report to follow Tommy Britt MD PATHOLOGY/CYTOL GUNNAR ORDERABLES Performing Organization Address City/[facility] Co de Phone Number [facility] [place] [address] * Non-Conversion Worker Final Report (05/07/2023 11:33 AM EDT) Diagnosis Discussion [id number] ? Location: [facility]; [facility] [[email or web address]]; A The signing pathologist has (i) examined the relevant preparation(s) for the specimen(s) and (ii) rendered or confirmed the diagnosis(es). . ? Non-Conversion Worker Final DIAGNOSIS Negative for Malignancy Electronically signed by: ?Darrion SOLIS PhD, Hilario Blank Verified: ??05/09/2023 8:57 ?? Pathologist Performed at: ??-[facility] Dept. of Pathology, [place] [address] Excavator Operator: Annie Whittaker MD, FCAP, ??CLIA Certificate: [id number] DISCUSSION Lung, left upper lobe (bronchial alveolar [...] Cell Block 1. 05/09/2023 8:57 AM EDT [facility] BRONCHIAL STRUCTURE / Unknown 05/07/2023 11:33 AM EDT 05/07/2023 11:33 AM EDT Tommy Britt MD PATHOLOGY/CYTOL OGY ORDERABLES [facility] [address] [place] [address] * Cytopathology Non-Gynecological (05/07/2023 11:33 AM EDT) AP Specimen 05/07/2023 11:3 3 AM EDT 05/07/2023 11:[address] [facility] - 05/07/2023 11:33 AM EDT Specimen requisition ordered. ??Separate Pathology report to follow Tommy Britt MD PATHOLOGY/CYTOL OGY ORDERABLES [facility] [place] [address] * (ABNORMAL) Tissue culture (05/07/2023 11:28 AM EDT) Tissue Culture Rare Coagulase negative Staphylococcus species : probable contaminant(A) [facility] Gram Stain Few Neutrophils seen No squamous epithelial cells seen No microorganisms seen. (A) [facility] Organism Coagulase negative Staphylococcus species(A) [facility] Lung 05/07/2023 11:2 8 AM EDT 05/07/2023 1:24 PM EDT Comment:FNA left upper lobe Narrative Resulting Agency Comment Spec In Lab Tommy Britt MD MICROBIOLOGY - GENERAL ORDERABLES Performing Organization Address City/[facility]/ZIP Co de Phone Number [facility] [place] [address] * Fungus culture Lung (05/07/2023 11:28 AM EDT) Fungus Culture No Fungus isolated [facility] Lung 05/07/2023 11:2 8 AM EDT 05/07/2023 1:27 PM EDT Comment:FNA left upper lobe Narrative Resulting Agency Comment Spec In Lab Tommy Britt MD MICROBIOLOGY - GENERAL ORDERABLES Performing Organization Address City/[facility]/ZIP Co de Phone Number [facility] [place] [address] * AFB culture Lung (05/07/2023 11:28 AM EDT) Acid Fast Bacilli Culture No Acid Fast Bacilli isolated If active tuberculosis is suspected, the patient should be on AIRBORNE PRECAUTIONS. Call Infection Prevention for assistance if needed. [facility] Acid Fast Stain No Acid Fast Bacilli seen [facility] Lung 05/07/2023 11:2 8 AM EDT 05/07/2023 1:27 PM EDT Comment:FNA left upper lobe Narrative Resulting Agency Comment Spec In Lab Tommy Britt MD MICROBIOLOGY - GENERAL ORDERABLES Performing Organization Address City/[facility]/ZIP Co de Phone Number [facility] [place] [address] * Specimen to Pathology (05/07/2023 11:27 AM EDT) AP Specimen 05/07/2023 11:2 7 AM EDT 05/07/2023 11:[address] [facility] - 05/07/2023 11:27 AM EDT Specimen requisition ordered. ??Separate Pathology report to follow Tommy Britt MD PATHOLOGY/CYTOL OGY ORDERABLES Performing Organization Address [facility]/ZIP Co de Phone Number [facility] [place] [address] * Non-Conversion Worker Final Report (05/07/2023 11:07 AM EDT) Diagnosis Discussion [id number] ? Location: [facility]; [facility] [[email or web address]]; A The signing pathologist has (i) examined the relevant preparation(s) for the specimen(s) and (ii) rendered or confirmed the diagnosis(es). . ? Non-Conversion Worker Final DIAGNOSIS See Discussion Electronically signed by: ?Trena SOLIS, Steve Blank Verified: ??05/08/2023 14:37 ??Cytopathologis t Performed at: ??-[facility] Dept. of Pathology, [place] [address] Excavator Operator: Annie Whittaker MD, FCAP, ??IA Certificate: [id number] DISCUSSION Lung: left upper lobe (FNA) - [...] Cell Block 1. 05/08/2023 2:37 PM EDT [facility] LABORATORY LEFT LUNG STRUCTURE / Unknown 05/07/2023 11:07 AM EDT 05/07/2023 11:07 AM EDT Tommy Britt MD PATHOLOGY/CYTOL GUNNAR ORDERABLES [facility] [address] [facility] [place] [address] * Cytopathology Non-Gynecological (05/07/2023 11:07 AM EDT) AP Specimen 05/07/2023 11:0 7 AM EDT 05/07/2023 11:[address] [facility] - 05/07/2023 11:07 AM EDT Specimen requisition ordered. ??Separate Pathology report to follow Tommy Britt MD PATHOLOGY/CYTOL OGY ORDERABLES [facility] [place] [address] documented in this encounter Visit Diagnoses Diagnosis Pulmonary nodules Other nonspecific abnormal finding of lung field documented in this encounter Active and Recently Administered [...] López) documented in this encounter Care Teams Director Perioperative Relationship Specialty Start Date End Date None None PCP - General 04/13/23 documented as of this encounter
--- OUTSIDE RECORDS SUMMARY | 2023-11-15 19:51 | XMS_ITS | Encounter Summary ---
Author Organization [facility] Address [facility] [place] [address] Care Team Providers Care Turret Lathe Tender Name Role Phone None Primary Care Provider Unavailabl e Encounter Details Date Type Department Care Team (Late st Contact Info) Description 05/13/2023 [place] [id number] Avila Washington MD [facility] [place] [address] Social History Tobacco Use Types Packs/Day Years Used Date Smoking Tobacco: Never Smokeless Tobacco: Never Alcohol Use Standard Drinks/Week Comments No 0 (1 standard drink = 0.6 oz pur e alcohol) [facility] Inpatient Questions Answer Date Recorded Does Anyone [...] Telephone Encounter - Avila Washington MD - 05/13/2023 9:48 AM EDT Interventional Pulmonology Telephone Encounter: I called Mr. Corey Santos on 05/13/2023 at 9:49 AM. No answer and a voice mail was left to call our office at [phone] to discuss his recent robotic assisted bronchoscopy and EBUS results. Avila Washington MD, 05/13/2023, 9:49 AM Interventional Pulmonology Section of Pulmonary & Critical Care Pager: [phone] documented in this encounter Plan of Treatment Not on file documented as of this encounter Visit Diagnoses Not on filedocumented in this encounter Care Teams Turret Lathe Tender Relationship Specialty Start Date End Date None None PCP - General 04/13/23 documented as of this encounter
--- OUTSIDE RECORDS SUMMARY | 2023-11-15 19:51 | XMS_ITS | Encounter Summary ---
Author Organization [facility] [place] [address] Care Team Providers Care Pricing Analyst Name Role Phone None Primary Care Provider Unavailabl e Reason for Visit * Auth/Cert (Routine) Specialty Diagnoses / Procedures Referred By Contac t Referred To Contact Diagnoses Lung mass Lung mass/ Bronch with EBUS/Transbronchial bx/ GA/ Lorenza Procedures PRO BRONCHOSCOPY, TRANSBRONCH BIOPSY PRO [facility] EBUS GUIDED SAMPL 3/> NODE STATION/STRUX BRONCHOSCOPY (FLEXIBLE OR RIGID) W\TRANSBRONC BX (WRVU 3.55) BRONCH, W ENDOBRONCHIAL ULTRASOUND (EBUS) GUIDED SAMPLING, 3+ NODES (WRVU 4.96) Tommy Britt MD [facility] [place] [address] [facility] Referral ID Status Reason Start Date Expiration Date Visits Re quested Visits Authorized [id number] 1 1 Encounter Details Date Type Department Care Team (Late st Contact Info) Description 04/25/2023 8:40 AM EST - 04/25/2023 9:50 AM EST [place] [address] Tommy Britt MD [facility] [place] [address] BRONCHOSCOPY (FLEXIBLE OR RIGID) W\TRANSBRONC BX (WRVU 3.55) Social History Tobacco Use Types Packs/Day Years [...] Sign Reading Time Taken Comments Blood Pressure 108/62 04/25/2023 9:50 AM EST Pulse 68 04/25/2023 7:51 AM EST Temperature - - Respiratory Rate 16 04/25/2023 9:50 AM EST Oxygen Saturation 95% 04/25/2023 9:50 [...] your doctor if you can take an kwqz-omx-xouvwge medicine. If you think your pain medicine [...] occurs, please contact your Doctor. Please call [phone] before 8pm Mon-Fri with problems, questions or concerns. If you call after 8pm or on weekends, call the Hospital at [phone] and ask to speak to the Equipment Operator/Laborer intelligence operations specialist and the front elevator operator will contact that person for you. When should you call for help? Call [phone] anytime you think you may need emergency [...] any problems. Where can you learn more? [facility] View your After Visit Summary and more online at [email or web address] If you would like to provide feedback about your hospital experience, please call the Office of Patient and Family Relations at . If you have received this After Visit Summary in error, please immediately return it in person to the department, or notify the [facility] Privacy Office by calling toll free at between the hours of 8AM and 5PM to arrange for our retrieval of the documents at no cost to you. Content Version: 12.2 ?? [id number] [email or web address]. Care instructions adapted under license by [facility]. If you have questions about a medical condition or this instruction, always ask your healthcare professional. [email or web address] disclaims any warranty or liability for your [...] your doctor if you can take an ohnw-nzi-ychvkrw medicine. If you think your pain medicine [...] occurs, please contact your Doctor. Please call [phone] before 8pm Mon-Fri with problems, questions or concerns. If you call after 8pm or on weekends, call the Hospital at [phone] and ask to speak to the Equipment Operator/Laborer intelligence operations specialist and the front elevator operator will contact that person for you. When should you call for help? Call [phone] anytime you think you may need emergency [...] After Visit Summary and more online at [email or web address] If you would like to provide [...] cost to you. Content Version: 12.2 ?? [id number] [email or web address]. Care instructions adapted under license by [facility]. If you have questions about a medical condition or this instruction, always ask your healthcare professional. [email or web address] disclaims any warranty or liability for your use of this information. documented in this encounter Medications at Time of Discharge Medication Sig Dispensed Refills Start Date End Date methadone (Dolophine) 10 mg/mL oral concentrateIndications:o pioid dependence Take 10-12 mLs by mouth 2 times daily. Receives Methadone 120 mg qAM, 100 mg qPM from [facility] methadone clinic in [facility]. This dose was confirmed with Dr. Monika Hamlin (clinic medical observer) on 04/13/2023. Indications: dependence on opioid-type drugs [...] Section of Pulmonary & Critical Care Pager: [phone] Source Note - Avila Washington MD - 04/18/2023 1:00 PM EST Images from the original note were not included. INTERVENTIONAL PULMONOLOGY OUTPATIENT CONSULT NOTE SECTION OF PULMONARY & CRITICAL CARE MEDICINE PATIENT NAME: Corey Santos : 1990 MEDICAL RECORD: [id number] DATE OF SERVICE: 04/18/2023 REFERRING PHYSICIAN: Daphne [...] history of tobacco use. 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 In speaking with Mr. Corey Santos, he tells me that he was in his usual state of health up until about [address] Peter's 04/13/23 note, Mr. Tom noted ...night sweats (not quite drenching, but [...] 120 mg qAM, 100 mg qPM from [facility] methadone clinic in [facility]. This dose was confirmed with Dr. Monika Hamlin (clinic medical observer) on 04/13/2023. Indications: dependence on opioid-type drugs [...] EtOH: None Other drugs: Reports none Employment: [employer] Occupational exposures: Dusts/fumes PFTS: None on file [...] Section of Pulmonary & Critical Care Pager: [phone] documented in this encounter Miscellaneous Notes * [...] Section of Pulmonary and Critical Care Medicine [address] Room [address] [place] [address] Phone Pul Generic: [phone] [email or web address] Pager #[phone] documented in this encounter Plan of Treatment Not on file documented as of this encounter Procedures Procedure Name Priority Date/Time Associated Diagnosis Comments IMMUNOPHENOTYPING FLOW CYTOMETRY (BLOOD) Routine 04/25/2023 9:50 AM EST FLOW CYTOMETRY REPORT Routine 04/25/2023 9:50 AM EST XR CHEST ONE VIEW STAT 04/25/2023 9:4 3 AM EST NON-SENIOR PRICING ANALYST FINAL REPORT Routine 04/25/2023 9:17 AM EST NON-SENIOR PRICING ANALYST FINAL REPORT Routine 04/25/2023 9:17 AM EST NON-SENIOR PRICING ANALYST FINAL REPORT Routine 04/25/2023 9:17 AM EST NON-SENIOR PRICING ANALYST FINAL REPORT Routine 04/25/2023 9:17 AM EST SURGICAL PATHOLOGY REPORT Routine 2023 9:17 AM EST SPECIMEN TO PATHOLOGY Routine 04/25/2023 9:17 AM EST CYTOPATHOLOGY NON-GYNECOLOGICAL Routine 04/25/2023 9:17 AM EST CYTOPATHOLOGY NON-GYNECOLOGICAL Routine 04/25/2023 9:17 AM EST CYTOPATHOLOGY NON-GYNECOLOGICAL Routine 04/25/2023 9:17 AM EST CYTOPATHOLOGY NON-GYNECOLOGICAL Routine 04/25/2023 9:17 AM EST [facility] Ebus Dx/Tx Intervention Perph Les (32920) 04/25/2023 8:38 AM EST Lung mass [facility] Ebus Guided Sampl 3/> Node Station/Strux ([id number]) 04/25/2023 8:38 AM EST Lung mass Bronchoscopy, Transbronch Biopsy ([id number]) 04/25/2023 8:38 AM EST Lung mass documented in this encounter Results * Flow Cytometry Report (04/25/2023 9:50 AM EST) Pathologist [facility] Flow Cytometry Report [id number] ? Location: 4T; EA06; A The signing [...] the biopsy is recommended. Electronically signed by: ?Robert Khoury DO Verified: ??04/25/2023 15:07 ??Pathologist Performed at: ??-[facility] Dept. of Pathology, [place] [address] Boat Dock Operator: Annie Whittaker MD, FCAP, ??CLIA Certificate: [id number] DISCUSSION Cell viability was ~85.2% as assessed by 7-AAD exclusion. Blasts based on CD45/SSC/CD117, are not increased. The T-lymphocytes, B- lymphocytes and CD56+ NK cells comprise approx 77%, 20%, 2% of the gated population, respectively. The CD19 positive B-cells have a polytypic expression of surface immunoglobulin light chain (Rye:Lambda ratio at 1.3:1). The T-cells are an admixture of CD4+ and CD8+ T lymphocytes (ratio of 2.1:1). No loss or atypical intensity distributions are seen for any mejia T antigen (CD2, 3, 4+8, 5, 7). There is no increase in JR02-ppugsqqs/ CD3-neg NK cells. Flow analysis is an ancillary study. A definite diagnosis requires correlation with the morphologic features of this process and if necessary, correlation with other ancillary studies like immunohistochemistr y, enzyme cytochemistry and/or cyto/ molecular genetics. This test was developed and its performance characteristics determined by the Clinical Flow Cytometry Laboratory at [facility]. It has not been cleared or approved [...] high complexity clinical laboratory testing. SPECIMEN PROCESSING [id number] Cells for immunophenotypic analysis were derived from LYMPH NODE. CD45 vs side scatter gating was utilized to identify a LYMPHOID analysis region that comprises approximately 75-77% of all cells. The following markers were assessed: CD2, CD3, CD4, CD5, CD7, CD8, CD10, CD19, CD45, CD56, kappa light chain, and lambda light chain. . CLINICAL INFORMATION 33 y/o male with EBUS/ROMA lymphadenopathy. [facility] 04/25/2023 9:50 AM EST Tommy Britt MD PATHOLOGY/CYTOL OGY ORDERABLES Performing Organization Address [facility] [address]/ZIP [place] [address] * Immunophenotyping Flow Cytometry (04/25/2023 9:50 AM EST) Immunophenotyping Flow See Comment [facility] Comment: When completed by the Pathologist, the Flow Cytometry Report ([id number]) will display under the Pathology Results section within [facility]. Other 04/25/2023 9:50 AM EST 04/25/2023 9:50 AM EST Narrative Resulting Agency Comment Spec In Lab Tommy Britt MD HEMATOLOGY ORDE RABLES Performing Organization Address [facility] [address]/ZIP [place] [address] * XR Chest One View (04/25/2023 9:43 [...] who have questions please contact the health client care manager that requested your imaging first. ? Narrative 04/25/2023 9:50 AM EST EXAMINATION: XR [...] patients who have questions please contactthe health client care manager that requested your imaging first. Tommy Britt MD IMG DX ORDERABL ES * Surgical Pathology Report (04/25/2023 9:17 AM EST) Final Diagnosis [id number] ? Location: ; [facility]; The signing pathologist has (i) examined the relevant preparation(s) for the specimen(s) and (ii) rendered or confirmed the diagnosis(es). . 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 - There is no evidence of malignancy. Electronically signed by: ?Jessica Pop MD Verified: ??04/30/2023 16:42 ??Pathologist Performed at: ??-[facility] Dept. of Pathology, [place] [address] Boat Dock Operator: Annie Whittaker MD, AP, ??CLIA Certificate: [id number] ADDITIONAL STUDIES Special Stains: Formalin-fixed, paraffin-embedded tissue [...] Block ? Antibody ?Result (Positive/Negative) A1 ? [id number] ?Highlights benign and reactive epithelium A1 ? [...] labeled A1. ??SM 04/30/2023 4:42 PM EDT [facility] LUNG STRUCTURE / Unknown 04/25/2023 9:17 AM EST 04/25/2023 9:17 AM EST Tommy Britt MD PATHOLOGY/CYTOL OGY ORDERABLES [facility] [place] [address] [facility] [place] [address] * Non-Compliance Associate Final Report (04/25/2023 9:17 AM EST) Diagnosis Discussion [id number] ? Location: 4T; EA06; A The signing pathologist has (i) examined the relevant preparation(s) for the specimen(s) and (ii) rendered or confirmed the diagnosis(es). . ? Non-Compliance Associate Final DIAGNOSIS See Discussion Electronically signed by: ?Trena SOLIS, Steve Blank Verified: ??04/29/2023 11:43 ??Cytopathologist Performed at: ??-[facility] Dept. of Pathology, [place] [address] Boat Dock Operator: Annie Whittaker MD, FCAP, ??CLIA Certificate: [id number] DISCUSSION Lymph node: station 4R (EBUS-guided FNA) [...] Cell Block 1. 04/29/2023 11:43 AM EDT [facility] LYMPH NODE SPECIMEN / Unknown 04/25/2023 9:17 AM EST 04/25/2023 9:17 AM EST Tommy Britt MD PATHOLOGY/CYTOL OGY ORDERABLES [facility] [address] [place] [address] * Non-Compliance Associate Final Report (04/25/2023 9:17 AM EST) Diagnosis Discussion [id number] ? Location: 4T; EA06; A The signing pathologist has (i) examined the relevant preparation(s) for the specimen(s) and (ii) rendered or confirmed the diagnosis(es). . ? Non-Compliance Associate Final DIAGNOSIS Negative for Malignancy Electronically signed by: ?Trena SOLIS, Steve Blank Verified: ??04/29/2023 11:39 ??Cytopathologist Performed at: ??-[facility] Dept. of Pathology, [place] [address] Boat Dock Operator: Annie Whittaker MD, FCAP, ??CLIA Certificate: [id number] DISCUSSION Lymph node: station 7 (EBUS-guided FNA) [...] Cell Block 1. 04/29/2023 11:39 AM EDT [facility] LYMPH NODE SPECIMEN / Unknown 04/25/2023 9:17 AM EST 04/25/2023 9:17 AM EST Tommy Britt MD PATHOLOGY/CYTOL OGY ORDERABLES [facility] [address] [place] [place] [address] * Non-Compliance Associate Final Report (04/25/2023 9:17 AM EST) Diagnosis Discussion [id number] ? Location: 4T; EA06; A The signing pathologist has (i) examined the relevant preparation(s) for the specimen(s) and (ii) rendered or confirmed the diagnosis(es). . ? Non-Compliance Associate Final DIAGNOSIS Negative for Malignancy Electronically signed by: ?Trena SOLIS, Steve Blank Verified: ??04/29/2023 11:33 ??Cytopathologist Performed at: ??-[facility] Dept. of Pathology, [place] [address] Boat Dock Operator: Annie Whittaker MD, FCAP, ??CLIA Certificate: [id number] DISCUSSION Lymph node: station 11L (EBUS-guided FNA) [...] Cell Block 1. 04/29/2023 11:33 AM EDT [facility] LYMPH NODE SPECIMEN / Unknown 04/25/2023 9:17 AM EST 04/25/2023 9:17 AM EST Tommy Britt MD PATHOLOGY/CYTOL OGY ORDERABLES [facility] [place] [address] [facility] [place] [id number] * Non-Compliance Associate Final Report (04/25/2023 9:17 AM EST) Diagnosis Discussion [id number] ? Location: 4T; EA06; A The signing pathologist has (i) examined the relevant preparation(s) for the specimen(s) and (ii) rendered or confirmed the diagnosis(es). . ? Non-Compliance Associate Final DIAGNOSIS Nondiagnostic Electronically signed by: ?Trena SOLIS, Steve Blank Verified: ??04/29/2023 11:28 ??Cytopathologist Performed at: ??-[facility] Dept. of Pathology, [place] [address] Boat Dock Operator: Annie Whittaker MD, FCAP, ??CLIA Certificate: [id number] DISCUSSION Lymph node: station 4L (EBUS-guided FNA) [...] Cell Block 1. 04/29/2023 11:28 AM EDT [facility] LYMPH NODE SPECIMEN / Unknown 04/25/2023 9:17 AM EST 04/25/2023 9:17 AM EST Tommy Britt MD PATHOLOGY/CYTOL OGY ORDERABLES [facility] [place] [address] [facility] [place] [address] * Specimen to Pathology (04/25/2023 9:17 AM EST) AP Specimen 04/25/2023 9:17 AM EST 04/25/2023 9:17 AM EST Narrative [facility] - 04/25/2023 9:17 AM EST Specimen requisition ordered. ??Separate Pathology report to follow Tommy Britt MD PATHOLOGY/CYTOL OGY ORDERABLES [facility] [place] [address] * Cytopathology Non-Gynecological (04/25/2023 9:17 AM EST) AP Specimen 04/25/2023 9:17 AM EST 04/25/2023 9:17 AM EST Narrative [facility] - 04/25/2023 9:17 AM EST Specimen requisition ordered. ??Separate Pathology report to follow Tommy Britt MD PATHOLOGY/CYTOL OGY ORDERABLES Performing Organization Address City/[facility] [address]/ZIP Co de Phone Number [facility] [place] [address] * Cytopathology Non-Gynecological (04/25/2023 9:17 AM EST) AP Specimen 04/25/2023 9:17 AM EST 04/25/2023 9:17 AM EST Narrative [facility] - 04/25/2023 9:17 AM EST Specimen requisition ordered. ??Separate Pathology report to follow Tommy Britt MD PATHOLOGY/CYTOL OGY ORDERABLES Performing Organization Address City/[facility] [address]/ZIP Co de Phone Number [facility] [place] [address] * Cytopathology Non-Gynecological (04/25/2023 9:17 AM EST) AP Specimen 04/25/2023 9:17 AM EST 04/25/2023 9:17 AM EST Narrative [facility] - 04/25/2023 9:17 AM EST Specimen requisition ordered. ??Separate Pathology report to follow Tommy Britt MD PATHOLOGY/CYTOL OGY ORDERABLES Performing Organization Address City/[facility] [address]/ZIP [place] [address] * Cytopathology Non-Gynecological (04/25/2023 9:17 AM EST) AP Specimen 04/25/2023 9:17 AM EST 04/25/2023 9:17 AM EST Narrative [facility] - 04/25/2023 9:17 AM EST Specimen requisition ordered. ??Separate Pathology report to follow Tommy Britt MD PATHOLOGY/CYTOL OGY ORDERABLES Performing Organization Address City/[facility] [address]/[facility] [place] [address] documented in this encounter Visit Diagnoses Diagnosis Lung mass Swelling, mass, or lump in chest documented in this encounter Active and Recently Administered Medications Care Teams Pricing Analyst Relationship Specialty Start Date End Date None None PCP - General 04/13/23 documented as of this encounter
--- OUTSIDE RECORDS SUMMARY | 2023-11-15 19:51 | XMS_ITS | Encounter Summary ---
Author Organization [facility] [place] [address] Care Team Providers Care Rubber Attacher Name Role Phone None Primary Care Provider Unavailabl e Reason for Referral * Diagnostic Test (Routine) - Closed Specialty Diagnoses / Procedures Referred By Contac t Referred To Contact Radiology Diagnoses Lung mass Procedures MRI Brain wwo Contrast (Generic) Avila Washington MD [facility] [place] [address] [facility] [place] [address] Referral ID Status Reason Start Date Expiration Date V isits Requested Visits Authorized [id number] Closed Specialty Service Requested 04/14/2023 10/12/2024 1 1 * Diagnostic Test (STAT) - Closed Specialty Diagnoses / Procedures Referred By Contac t Referred To Contact Radiology Diagnoses Lung mass Procedures NM PET CT Skull Base to Mid-thigh Avila Washington MD [facility] [place] [address] [facility] [place] [address] Referral ID Status Reason Start Date Expiration Date V isits Requested Visits Authorized [id number] Closed Specialty Service Requested 04/14/2023 10/12/2024 1 1 Encounter Details Date Type Department Care Team (Late st Contact Info) Description 04/14/2023 [place] [address] Avila Washington MD [facility] [place] [address] Lung mass Social History Tobacco Use Types Packs/Day Years Used Date Smoking Tobacco: Never Smokeless Tobacco: Never Alcohol Use Standard Drinks/Week Comments No 0 (1 standard drink = 0.6 oz pur e alcohol) [facility] Inpatient Questions Answer Date Recorded Does Anyone [...] on file documented as of this encounter Results * NM PET CT Skull Base to Mid-thigh (04/24/2023 12:30 PM EST) Anatomical Region Laterality Modality Positron Emissio n Tomography (PET) Impressions 04/29/2023 3:18 PM EDT 1. ??Large FDG avid consolidation with air bronchograms in the medial left upper lobe which appears modestly increased in extent compared to recent CT of 04/13/2023. Appearance is most suggestive of an inflammatory/infectious etiology. 2. ??Additional sub-5 mm FDG avid nodule just lateral to above-mentioned consolidation, favored an inflammatory focus. 3. ??1.3 cm FDG avid ill-defined nodular opacity in the perifissural left lower lobe, and a sub-5 mm FDG avid nodule in the lateral right upper lobe, also favored an inflammatory etiology. 4. ??Subcentimeter FDG avid lymph node in the medial left supraclavicular region, favored an inflammatory node. 5. ??Diffusely increased marrow and splenic activity is favored to represent reactive marrow and splenic hyperplasia. I have personally reviewed the image(s) and the resident's interpretation and agree with the findings, Sonny Law MD at 04/29/2023 3:18 PM Thank you for letting us participate in the care of this patient. ??If you are a health care provider and have any questions regarding this report, please contact the number below. ??For patients who have questions please contact the health healthcare project manager that requested your imaging first. ? Electronically signed by: Sonny Law MD, [facility] ([phone]), at 04/29/2023 3:18 PM Narrative 04/29/2023 3:18 PM EDT EXAMINATION: NM PET CT STANDARD SKULL BASE TO MID-THIGH CLINICAL HISTORY: Metastatic disease evaluation - Include more detail below. left lung mass. R91.8, Other nonspecific abnormal finding of lung field TECHNIQUE: Following IV injection of 24-bwvnkl-8-deoxyglucose (FDG) a standard uptake of approximately 60 minutes, a noncontrast CT scan followed by a PET scan were acquired from the base of the skull to mid thighs. The noncontrast CT was used for anatomic localization and photon attenuation correction of the PET scan. Blood glucose level: 91 (mg/dL) FDG dose: 11.5 mCi COMPARISON: CT chest PE protocol 04/13/2023 FINDINGS: HEAD/NECK: Subcentimeter FDG avid medial left supraclavicular node (axial image 53). CHEST: Large FDG avid consolidation with air bronchograms in the medial left upper lobe, contiguous with the medial and posterior pleural margin, and which appears modestly increased in extent compared to recent CT of 04/13/2023. Consolidation extends posteriorly into the superior segment of the left lower lobe. Sub-5 mm FDG avid nodule just lateral to above-mentioned consolidation (axial image 68), unchanged compared to recent CT. 1.3 cm FDG avid ill-defined nodular opacity in the perifissural left lower lobe (axial image 85), unchanged in size compared to recent CT. Sub-5 mm FDG avid nodule in the lateral right upper lobe (axial image 74), unchanged compared to CT of 04/13/2023. CT visualized subcentimeter nodule in the perifissural right middle lobe (axial image 92), favored a benign intrapulmonary lymph node. Several small minimally FDG avid lymph nodes in the bilateral mediastinal regions, favored to represent benign reactive nodes. Mild coronary calcifications present. ABDOMEN/PELVIS: Mild diffusely increased activity in the borderline mildly enlarged spleen, favored to represent reactive spleen. No adenopathy. Tiny splenic calcified granuloma. SKELETON/EXTREMITIES: Diffusely increased marrow activity in the axial and proximal appendicular skeleton, favored reactive marrow. Procedure Note Sonny Law MD - 04/29/2023 EXAMINATION: NM PET CT STANDARD SKULL BASE TO MID-THIGH CLINICAL HISTORY: Metastatic disease evaluation - Include more detailbelow. left lung mass. R91.8, Other nonspecific abnormal finding of lung field TECHNIQUE: Following IV injection of 24-ftqdsn-3-deoxyglucose (FDG) astandard uptake of approximately 60 minutes, a noncontrast CT scan followed by aPET scan were acquired from the base of the skull to mid thighs. The noncontrast CTwas used for anatomic localization and photon attenuation correction of thePET scan. Blood glucose level: 91 (mg/dL) FDG dose: 11.5 mCi COMPARISON: CT chest PE protocol 04/13/2023 FINDINGS: HEAD/NECK: Subcentimeter FDG avid medial left supraclavicular node (axial image53). CHEST: Large FDG avid consolidation with air bronchograms in the medial leftupper lobe, contiguous with the medial and posterior pleural margin, and whichappears modestly increased in extent compared to recent CT of 04/13/2023.Consolidation extends posteriorly into the superior segment of the left lower lobe. Sub-5 mm FDG avid nodule just lateral to above-mentioned consolidation(axial image 68), unchanged compared to recent CT. 1.3 cm FDG avid ill-defined nodular opacity in the perifissural left lowerlobe (axial image 85), unchanged in size compared to recent CT. Sub-5 mm FDG avid nodule in the lateral right upper lobe (axial image74), unchanged compared to CT of 04/13/2023. CT visualized subcentimeter nodule in the perifissural right middle lobe(axial image 92), favored a benign intrapulmonary lymph node. Several small minimally FDG avid lymph nodes in the bilateralmediastinal regions, favored to represent benign reactive nodes. Mild coronary calcifications present. ABDOMEN/PELVIS: Mild diffusely increased activity in the borderline mildly enlargedspleen, favored to represent reactive spleen. No adenopathy. Tiny splenic calcified granuloma. SKELETON/EXTREMITIES: Diffusely increased marrow activity in the axial and proximalappendicular skeleton, favored reactive marrow. IMPRESSION 1. Large FDG avid consolidation with air bronchograms in the medial leftupper lobe which appears modestly increased in extent compared to recent CT of 04/13/2023. Appearance is most suggestive of an inflammatory/infectiousetiology. 2. Additional sub-5 mm FDG avid nodule just lateral to above-mentioned consolidation, favored an inflammatory focus. 3. 1.3 cm FDG avid ill-defined nodular opacity in the perifissural leftlower lobe, and a sub-5 mm FDG avid nodule in the lateral right upper lobe,also favored an inflammatory etiology. 4. Subcentimeter FDG avid lymph node in the medial left supraclavicularregion, favored an inflammatory node. 5. Diffusely increased marrow and splenic activity is favored torepresent reactive marrow and splenic hyperplasia. I have personally reviewed the image(s) and the resident's interpretationand agree with the findings, Sonny Law MD at 04/29/2023 3:18 PM Thank you for letting us participate in the care of this patient. If youare a health care provider and have any questions regarding this report,please contact the number below. For patients who have questions please contactthe health healthcare project manager that requested your imaging first. Electronically signed by: Sonny Law MD, [facility]([phone]), at 04/29/2023 3:18 PM Avila Washington MD IMG PET ORDERABLES * MRI Brain wwo Contrast (Generic) (04/23/2023 [...] who have questions please contact the health healthcare project manager that requested your imaging first. ? Electronically signed by: Peter Benton DO [facility] ??([phone]), at 04/23/2023 11:50 AM Narrative 04/23/2023 11:50 AM EST EXAMINATION: MRI [...] patients who have questions please contactthe health healthcare project manager that requested your imaging first. Electronically signed by: Peter Benton DO, [facility]([phone]), at 04/23/2023 11:50 AM Avila Washington MD IMG MRI ORDERABLES documented in this encounter Visit Diagnoses Diagnosis Lung mass Swelling, mass, or lump in chest Lung mass Swelling, mass, or lump in chest documented in this encounter Care Teams Rubber Attacher Relationship Specialty Start Date End Date None None PCP - General 04/13/23 documented as of this encounter
--- OUTSIDE RECORDS SUMMARY | 2023-11-15 19:51 | XMS_ITS | Encounter Summary ---
[place] [address] Care Team Providers Care Ice Skating Instructor Name Role Phone None Primary Care Provider Unavailabl e Encounter Details Date Type Department Care Team (Late st Contact Info) Description 05/01/2023 Telephone [place] [id number] Zuleyka Galeas Social History Tobacco Use Types Packs/Day Years Used Date Smoking Tobacco: Never Smokeless Tobacco: Never Alcohol Use Standard Drinks/Week Comments No 0 (1 standard drink = 0.6 oz pur e alcohol) [facility] Inpatient Questions Answer Date Recorded Does [...] on filedocumented in this encounter Care Teams Ice Skating Instructor Relationship Specialty Start Date End Date None None PCP - General 04/13/23 documented as of this encounter
--- OUTSIDE RECORDS SUMMARY | 2023-11-15 19:51 | XMS_ITS | Encounter Summary ---
Author Organization [facility] [place] [address] Care Team Providers Care Rotary Lithographic Press Operator Name Role Phone None Primary Care Provider Unavailabl e Reason for Visit * Auth/Cert (Routine) Specialty Diagnoses / Procedures Referred By Contac t Referred To Contact Diagnoses Pulmonary nodules Pulmonary nodule(s)/ROBTIC BRONCH WITH EBUS/GA/BEVERLEY Procedures PRO BRONCHOSCOPY RIGID FLEX W COMPUTER ASSIST IMG NAVIGATION PRO [facility] EBUS GUIDED SAMPL 3/> NODE STATION/STRUX BRONCHOSCOPY,RIGID OR FLEX,WITH IMAGE GUIDANCE ( ROBOT / ION ) (WRVU 2) BRONCH, W ENDOBRONCHIAL ULTRASOUND (EBUS) GUIDED SAMPLING, 3+ NODES (WRVU 4.96) Tommy Britt MD [facility] [place] [address] [facility] Referral ID Status Reason Start Date Expiration Date Visits Re quested Visits Authorized [id number] 1 1 Encounter Details Date Type Department Care Team (Late st Contact Info) Description 05/07/2023 10:59 AM EDT Anesthesia Event Main [place] [id number] Bill Jane MD [facility] [place] [address] Anesthesia Record Procedure Summary Procedure Name Responsible Anesthesiologist Anesthesia Start Time Anesthesia Stop Time BRONCHOSCOPY,RIGID OR FLEX,WITH IMAGE GUIDANCE ( ROBOT / ION ) (VU 2) Bill Jane MD 05/07/23 1059 05/07/23 1210 Events Date Time Event Comment 05/07/2023 1023 1059 AN Verify 1059 Start 1059 An Start Data 1109 An Induction 1112 An Intubation 1113 Anesthesia Ready 1203 Extubation/LMA Out 1206 an stop data 1210 Recovery or ICU Handoff Kamille ent care was transferred to the destination unit staff after review of the patient's medical history, current anesthetic/surgical status and plan, according to the Provider Handoff Checklist. 1210 Stop Meds Name Total IV Lidocaine 50 mg Lidocaine 4% LTA 4 mL PropofoL 200 mg PropofoL INF 413.02 mg fentaNYL 75 mcg Rocuronium 50 mg Sugammadex 200 mg Ondansetron 4 mg Dexamethasone 8 mg midazolam 2 mg lactated ringers infusion 400 mL * Agents Name O2 * Blood No blood administrations on file. Lines, Drains, and Airways Type Details Placement Removal PIV 05/07/23; 1059; rhvo-hdf-fyomsn catheter system; 20 gauge; cephalic vein (lateral side of arm), right; Anatomical Landmarks; CARBON GRINDER; distraction, tolerated well, appears comfortable; no longer indicated; 05/07/23; 1315 05/07/23 1059 by David Chaudhary RN 05/07/23 1315 by Antony Marinelli, DC ETT Mask Ventilation: Ea sy (1); ETT Type: Cuffed, Oral; ETT Size: 8.5 mm; Mac Blade: 4; Notes: Asleep, Pre-O2, Stylette; Attempts: 1; Laryngoscopy Grade: 1; ETT Placement Verified By: Auscultation, Capnometry, Visual; Secured at Teeth: 23 cm; Inserted by: Rene MCHUGH; Removal Date: 05/07/23; Removal Time: 1203 05/07/23 1112 by Elisabeth López 05/07/23 1203 by Elisabeth López documented in this encounter Social History Tobacco Use Types Packs/Day Years Used Date Smoking Tobacco: Never Smokeless Tobacco: Never Alcohol Use Standard Drinks/Week Comments No 0 (1 standard drink = 0.6 oz pur e alcohol) [facility] Questions Answer Date Recorded Does [...] OR Notes * Anesthesia Postprocedure Evaluation - Bill Jane MD - 05/07/2023 2:20 PM EDT Department of Anesthesiology Post-procedure Note Patient: Corey Santos Procedure Summary Date: 05/07/23 Room / Location: [facility] OR [address] [place] [address] MAIN OR Anesthesia Start: 1059 Anesthesia Stop: 1210 Procedures: BRONCHOSCOPY,RIGID OR FLEX,WITH IMAGE GUIDANCE ( ROBOT / ION ) (WRVU 2) BRONCH, W ENDOBRONCHIAL ULTRASOUND (EBUS) GUIDED SAMPLING, 1/2 NODES (WRVU 4.46) BRONCH, W EBUS DURING INTERVENTION FOR PERIPH LESION (WRVU 1.4) BRONCHOSCOPY W/TRANSBRONCHIAL NEEDLE ASPIRATION BX,FLEXIBLE (WRVU 3.75) BRONCHOSCOPY, RIGID OR FLEXIBLE, WITH BRONCHIAL ALVEOLAR LAVAGE (WRVU 2.63) (Chest) Diagnosis: Pulmonary nodules (Pulmonary nodule(s)/ROBTIC BRONCH WITH EBUS/GA/BEVERLEY) Surgeons: Tommy Britt MD Responsible Provider: Bill Jane MD Anesthesia Type: general ASA Status: 3 All Anesthesia Providers: Anesthesiologist: Bill Jane MD CARBON GRINDER: Ileana Ryan CRNA Student Nurse Fire Boat Engineer: Elisabeth López Vitals Value Taken Time BP 99/57 05/07/23 1300 Temp 36.4 ??C (97.5 ??F) 05/07/23 1300 Pulse 61 05/07/23 1256 Resp 16 05/07/23 1315 SpO2 97 % 05/07/23 1309 Pain Level Vitals shown include unfiled device data. Patient Location: PACU/[facility] Level of Consciousness: Awake and Alert Pain Management: Satisfactory Analgesia PONV: None Cardiovascular Status: Hemodynamically Stable and At Baseline Respiratory Status: At Baseline and Room Air Postoperative Fluid Status: Intravascular EUvolemia Possible Anesthetic Complications: NONE apparent at time of evaluation Final Primary Anesthesia Type: General (The anesthetic type performed was the same as planned.) Comments: * Anesthesia Preprocedure Evaluation - Bill Jane MD - 05/07/2023 10:23 AM EDT Pre-Anesthesia Evaluation for: Corey Santos a 33 y.o. male. Procedure(s): BRONCHOSCOPY,RIGID OR FLEX,WITH IMAGE GUIDANCE ( ROBOT / ION ) (WRVU 2) BRONCH, W ENDOBRONCHIAL ULTRASOUND (EBUS) GUIDED SAMPLING, 3+ NODES (WRVU 4.96) Patient Active Problem List Diagnosis Date Noted Lung mass 04/13/2023 Pulmonary embolism 05/31/2015 HCAP (healthcare-associated pneumonia) 05/31/2015 Past Medical History: Diagnosis Date Seizures Past Surgical History: Procedure Laterality Date PRO [facility] EBUS GUIDED SAMPL 3/> NODE STATION/STRUX N/A 04/25/2023 BRONCH, W ENDOBRONCHIAL ULTRASOUND (EBUS) GUIDED SAMPLING, 3+ NODES (WRVU 4.96) performed by Tommy Britt MD at [facility]TX INTERVENTION PERPH LES N/A 04/25/2023 BRONCH, W EBUS DURING INTERVENTION FOR PERIPH LESION (WRVU 1.4) performed by Tommy Britt MD at [facility] ENDOSCOPY PRO BRONCHOSCOPY, TRANSBRONCH BIOPSY N/A 04/25/2023 BRONCHOSCOPY (FLEXIBLE OR RIGID) W\TRANSBRONC BX (WRVU 3.55) performed by Tommy Britt MD at [facility] ENDOSCOPY Social History Tobacco Use Smoking status: Never Smokeless tobacco: Never Substance Use Topics Alcohol use: No Social History Substance and Sexual Activity Drug Use Yes Frequency: 21.0 times per week Types: Cocaine, Marijuana, Benzodiazapines , Narcotics Comment: On methadone 120mg PO QD Allergies Allergen Reactions Levofloxacin Itching IV Medications: MAR and/or home medications have been reviewed. Physical Exam: Preprocedure Vitals Current as of 05/07/23 1023 No BP, pulse, respiration, SpO2, or temperature recorded. Height: Weight: BMI: IBW: Airway Assessment: Mallampati: I TM distance: >3 FB Neck ROM: full Cardiovascular Assessment: Rate: normal Pulmonary Assessment: unlabored breathing Dental Assessment: Misc Assessment: Last Filed Perioperative Cognitive Screening None Anesthesia Plan: ASA 3 general, with a(n) intravenous induction Region - Intrathoracic Non-Cardiac Informed Consent: Anesthetic plan and risks discussed with patient. Plan discussed with CARBON GRINDER and attending. Anesthesia Screening documented in this encounter Plan of Treatment Not on file documented as of this encounter Visit Diagnoses Not on filedocumented in this encounter Administered Medications Inactive Administered Medications - up to 3 most recent administrations Medication Order MAR Action Action Date Dose Rate Site dexAMETHasone (Decadron) injection Intravenous, PRN, Starting on Sat05/07/23 at 1115, Until Sat05/07/23 at 1224, Anesthesia Intra-op, Routine Given 05/07/2023 11:15 AM EDT 8 mg fentaNYL (pf) (50 mcg/mL) multi-dose injection Intravenous, PRN, Starting on Sat05/07/23 at 1108, Until Sat05/07/23 at 1224, Anesthesia Intra-op, Routine Given 05/07/2023 11:39 AM EDT 25 mcg Given 05/07/2023 11:30 AM EDT 25 mcg Given 05/07/2023 11:08 AM EDT 25 mcg lactated ringers infusion 1,000 mL, at 100 mL/hr, Intravenous, CONTINUOUS, Starting on Sat05/07/23 at 1115, Until Sat05/07/23 at 1343, Day of Surgery (Day of Procedure) New Bag 05/07/2023 10:59 AM EDT lidocaine (pf) (Xylocaine) (20 mg/mL) 2% injection syringe Intravenous, PRN, Starting on Sat05/07/23 at 1109, Until Sat05/07/23 at 1224, Anesthesia Intra-op, Routine Given 05/07/2023 11:09 AM EDT 50 mg lidocaine (XYLOCAINE) 4 % external solution Intratracheal, PRN, Starting on Sat05/07/23 at 1112, Until Sat05/07/23 at 1224, Anesthesia Intra-op Given 05/07/2023 11:12 AM EDT 4 mLs midazolam (pf) (Versed) (1 mg/mL) multi-dose injection Intravenous, PRN, Starting on Sat05/07/23 at 1100, Until Sat05/07/23 at 1224, Anesthesia Intra-op, Routine Given 05/07/2023 11:00 AM EDT 2 mg ondansetron (pf) (Zofran) (2 mg/mL) injection Intravenous, PRN, Starting on Sat05/07/23 at 1156, Until Sat05/07/23 at 1224, Anesthesia Intra-op, Routine Given 05/07/2023 11:56 AM EDT 4 mg propofoL (Diprivan) (10 mg/mL) infusion Intravenous, CONTINUOUS PRN, Starting on Sat05/07/23 at 1109, Until Sat05/07/23 at 1224, Anesthesia Intra-op, Routine Rate/Dose Change 05/07/2023 11:13 AM EDT 125 mcg/kg/min 54.825 mL/hr New Bag 05/07/2023 11:09 AM EDT 100 mcg/kg/min 43.86 mL /hr propofoL (Diprivan) 10 mg/mL bolus injection (Anesthesia) Intravenous, PRN, Starting on Sat05/07/23 at 1109, Until Sat05/07/23 at 1224, Anesthesia Intra-op Given 05/07/2023 11:09 AM EDT 200 mg rocuronium (Zemuron) (10 mg/mL) multi-dose injection Intravenous, PRN, Starting on Sat05/07/23 at 1110, Until Sat05/07/23 at 1224, Anesthesia Intra-op, Routine Given 05/07/2023 11:10 AM EDT 50 mg sugammadex (Bridion) 100 mg/mL injection Intravenous, PRN, Starting on Sat05/07/23 at 1156, Until Sat05/07/23 at 1224, Anesthesia Intra-op, Routine Given 05/07/2023 11:56 AM EDT 200 mg documented in this encounter Care Teams Rotary Lithographic Press Operator Relationship Specialty Start Date End Date None None PCP - General 04/13/23 documented as of this encounter
--- OUTSIDE RECORDS SUMMARY | 2023-11-15 19:51 | XMS_ITS | Encounter Summary ---
Author Organization Formerly [facility] Address [facility] [place] [address] Care Team Providers Care Helicopter Crew Chief Name Role Phone None Primary Care Provider Unavailabl e Reason for Visit * Consultation (Urgent) - Closed Specialty Diagnoses / Procedures Referred By Contcandace t Referred To Contact Pulmonology Diagnoses Lung mass Daphne Peter MD [facility] [place] [address] [facility] Pulmonology [address] [place] [address] Referral ID Status Reason Start Date Expiration Date V isits Requested Visits Authorized [id number] Closed Consult, Test & Treat 04/13/2023 04/12/2024 1 1 Encounter Details Date Type Department Care Team (Late st Contact Info) Description 04/18/2023 1:00 PM EST Office [place] [address] Avila Washington MD [facility] [place] [address] Lung mass Social History Tobacco Use Types Packs/Day Years Used Date Smoking Tobacco: Never Smokeless Tobacco: Never Tobacco Cessation:Counseling Given: Not Answered Alcohol Use Standard Drinks/Week Comments No 0 (1 standard drink = 0.6 oz pur e alcohol) [facility] Inpatient Questions Answer Date Recorded Does Anyone [...] Sign Reading Time Taken Comments Blood Pressure 104/64 04/18/2023 12:45 PM EST Pulse 89 04/18/2023 12:45 PM EST Temperature 36.6 ??C (97.8 ??F) 04/18/2023 12:[address] Respiratory Rate 16 04/18/2023 12:45 PM EST Oxygen Saturation 99% 04/18/2023 12:45 PM EST Inhaled Oxygen Concentration - - Weight 77.1 kg (170 lb) 04/18/2023 12:45 PM EST Height 175.3 cm (5' 9) 04/18/2023 12:45 PM EST Body Mass Index 25.1 04/18/2023 12:45 PM EST documented in this encounter Patient Instructions * Patient Instructions* Avila Washington MD - 04/18/2023 1:00 PM EST Thank you for visiting Dr. Avila Washington in the Interventional Pulmonology clinic on 04/18/23 We would like to schedule you for your Bronchoscopy with Endobronchial Ultrasound (EBUS) and biopsies. You will receive a call soon from our corporate scheduler to arrange this appointment with either Dr. Washington or Dr. Britt depending upon availability. Our corporate scheduler and nurse will confirm your arrival time, procedure time, review your medications (if taking any), and confirm when to stop eating and drinking. Your procedure will occur here at [facility] at either 4T or 4W. Bronchoscopy is the term for a procedure in which a scope (thin tube with a light source on the end) is placed through a breathing tube into your trachea and large airways. The removal of small pieces of tissue (such as lymph node or lung) using a needle or forceps may be performed and is called a biopsy. Endobronchial ultrasound or EBUS, is a procedure used to diagnose a number of different conditions in the lung. It is done using a flexible bronchoscope with a small ultrasound at its tip. The deviceis able to take pictures and biopsy nearby lymph nodes and other areas of interest within the lung.This is a less invasive alternative to some surgeries. Please read the following instructions carefully/these will be reviewed again with you when we call: You MUST arrange to have someone drive you home after the bronchoscopy. This requirement is for your safety. Although you will be observed for several hours after the procedure, you will still be affected by medications you will receive. If you do not have a responsible cement truck driver, the procedure will be cancelled. If you use home oxygen: please ensure you bring this with you as well as a back- up tank. You will be transitioned to our oxygen system after check-in, but you will need enough home oxygen to last youuntil then as well as for your trip home. Please plan in advance. Do not have anything to eat 8 hours prior to your procedure. You are permitted to have small amounts of clear liquids up to two hours before your scheduled procedure. This includes water, emmanuelle francheska,apple juice, black coffee or tea. Sugar or sugar substitutes are fine in your coffee or tea, however you are not permitted to have any dairy products (or dairy substitutes) after midnight. You cannothave any milk, cream, or creamers (regardless if dairy-free or not). Failure to abide to these instructions may result in cancellation of your procedure. Please call us immediately if you have been ill, had a fever, or have been exposed to any illness in the few days prior to the scheduled procedure. If you take any over the counter or prescribed blood thinners (including, but not limited to, Aspirin, Plavix, Coumadin, Eliquis, Pradaxa, or Xarelto) please alert us and we will provide you specificinstructions on whether to stop or continue these medications before your procedure. If you take insulin or any other diabetes medications, please alert us and we will provide you specific instructions on whether to stop or continue these medications before your procedure. If you are taking any other prescribed medications (such as blood pressure medications), you may take them with a small amount of water, just enough to safely swallow them. Please plan to check-in 1 hour before your procedure (or when instructed). Your procedure will be at [facility]. Please park/arrive at either the parking garage or main entrance. You will be asked to report to either 4T or 4W on the 4th floor. After being checked in, you will be brought back to the pre-procedure area. You will be asked to change into a gown, undergo a brief medical evaluation, and have an IV (intra-venous;into a vein) linestarted to give you the necessary medications during your procedure. You will then meet with your Professor Of Forestry who will review the procedure with you prior to bringing you to the procedure room. Based on the type of procedure you are having, you may meet with an Anesthesiologist who will explain the sedation process to you. You will receive medications through your IV line during the procedure to make you sleepy. You should plan to be in the recovery area for about 1-2 hours after your procedure is over. If you have any questions before your procedure, do not hesitate to call us at to speak with your pulmonary physician, or the on-call provider at night or during weekends. Thank you for trusting us with your care, The Interventional Pulmonology team at [facility] 04/18/2023, 1:27 PM documented in this encounter Progress Notes * Avila Washington MD - 04/18/2023 1:00 PM EST Images from the original note were not included. INTERVENTIONAL PULMONOLOGY OUTPATIENT CONSULT NOTE SECTION OF PULMONARY & CRITICAL CARE MEDICINE PATIENT NAME: Corey Santos : 1990 MEDICAL RECORD: [id number] DATE OF SERVICE: 04/18/2023 REFERRING PHYSICIAN: Daphne [...] history of tobacco use. He works in [place] x6 months - there is significant exposure [...] 120 mg qAM, 100 mg qPM from [facility] in [facility]. This dose was confirmed with Dr. Monika Hamlin (clinic medical record specialist) on 04/13/2023. Indications: dependence on opioid-type [...] EtOH: None Other drugs: Reports none Employment: [employer] Occupational exposures: Dusts/fumes PFTS: None on file [...] Section of Pulmonary & Critical Care Pager: [phone] documented in this encounter Plan of Treatment Scheduled Referrals Name Type Priority Associated Diagnoses Order Schedule Referral to Pulmonology Outpatient Referral Urgent Lung mass Ordered: 04/13/2023 documented as of this encounter Visit Diagnoses Diagnosis Lung mass Swelling, mass, or lump in chest documented in this encounter Care Teams Helicopter Crew Chief Relationship Specialty Start Date End Date None None PCP - General 04/13/23 documented as of this encounter
--- OUTSIDE RECORDS SUMMARY | 2023-11-15 19:51 | XMS_ITS | Encounter Summary ---
Author Organization [place] [address] Care Team Providers Care Asp Web Developer Name Role Phone None Primary Care Provider Unavailabl e Encounter Details Date Type Department Care Team (Late st Contact Info) Description 05/14/2023 [place] [phone] Zuleyka Johnson RN Social History Tobacco Use Types Packs/Day Years Used Date Smoking Tobacco: Never Smokeless Tobacco: Never Alcohol Use Standard Drinks/Week Comments No 0 (1 standard drink = 0.6 oz pur e alcohol) [facility] Inpatient Questions Answer Date [...] Telephone Encounter - Zuleyka Johnson RN - 05/14/2023 11:38 AM EDT Just now indexing this call at 1140 am. I was never paged, given only a 1 hour window was provided for a call back time frame. Zuleyka Johnson RN Department of Pulmonary 5C, [facility] / Pager: [phone] * Telephone Encounter - Zuleyka Johnson RN - 05/14/2023 11:38 AM EDT Copied from [facility] #[id number]. Topic: Specialty Dept CRMs - Generic Call >> May 14, 2023 9:20 AM Shavonne Garcia wrote: Specialist: Avila Washington MD Relationship (if other than patient-full name): self Reason for Call: returning Dr. Lunsford call for test results. Patient states her will be available from 9:20 to about 10:20. Please call to discuss test results. >> May 14, 2023 10:18 AM Alexandra Clark wrote: Patient calling back to speak with Dr. Washington. documented in this encounter Plan of Treatment Not on file documented as of this encounter Visit Diagnoses Not on filedocumented in this encounter Care Teams Asp Web Developer Relationship Specialty Start Date End Date None None PCP - General 04/13/23 documented as of this encounter
--- OUTSIDE RECORDS SUMMARY | 2023-11-15 19:51 | XMS_ITS | Encounter Summary ---
Author Organization [facility] Address [facility] [place] [address] Care Team Providers Care Millinery Salesperson Name Role Phone None Primary Care Provider Unavailabl e Reason for Referral * Diagnostic Test (Routine) - Closed Specialty Diagnoses / Procedures Referred By Contac t Referred To Contact Radiology Diagnoses Lung mass Procedures CT Chest wo Contrast (Generic) Avila Washington MD [facility] [place] [address] [facility] [place] [address] Referral ID Status Reason Start Date Expiration Date V isits Requested Visits Authorized [id number] Closed Specialty Service Requested 05/14/2023 11/13/2024 1 1 Reason for Visit * Diagnostic Test (Routine) - Closed Specialty Diagnoses / Procedures Referred By Contac t Referred To Contact Radiology Diagnoses Lung mass Procedures CT Chest wo Contrast (Generic) Avila Washington MD [facility] [place] [address] [facility] [place] [address] Referral ID Status Reason Start Date Expiration Date V isits Requested Visits Authorized [id number] Closed Specialty Service Requested 05/14/2023 11/13/2024 1 1 Encounter Details Date Type Department Care Team (Latest Contact Info) Description 07/04/2023 1:55 PM EDT - 07/04/2023 11:59 PM EDT Hospital [place] [address] Avila Washington MD [facility] PULMONARY [place] [address] Lung mass Discharge Disposition: Home Social History Tobacco Use Types Packs/Day Years Used Date Smoking Tobacco: Never Smokeless Tobacco: Never Alcohol Use Standard Drinks/Week Comments No 0 (1 standard drink = 0.6 oz pur e alcohol) [facility] Inpatient Questions Answer Date Recorded Does Anyone [...] 120 mg qAM, 100 mg qPM from [facility] methadone clinic in [facility]. This dose was confirmed with Dr. Monika Hamlin (clinic medical field representative) on 04/13/2023. Indications: dependence on opioid-type drugs 04/13/2023 documented as of this encounter Plan of Treatment Not on file documented as of this encounter Procedures Procedure Name Priority Date/Time Associated Diagnosis Comments CT CHEST WO CONTRAST (GENERIC) Routine 07/04/2023 2:14 PM EDT Lung mass documented in this encounter Results * CT Chest wo Contrast (Generic) (07/04/2023 2:14 PM EDT) [employer] Signature WORKSTATION ID [id number] RAD Anatomical Region Laterality Modality Chest Computed Tomogra phy Impressions 07/05/2023 4:50 PM EDT 1. ??Near complete resolution of central left upper lobe consolidation 2. ??Mild coronary artery calcification, abnormal for patient's age. Formal cardiovascular risk assessment is recommended if not already performed. Thank you for letting us participate in the care of this patient. ??If you are a health care provider and have any questions regarding this report, please contact the number below. ??For patients who have questions please contact the health career guidance technician that requested your imaging first. ? 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 Lymphoma is of concern if there is worsening/failure to improve. TECHNIQUE: Helical CT of the chest without intravenous contrast administration. Thin-section reconstructions as well as coronal and sagittal reformatted images were generated. COMPARISON: 05/07/2023 FINDINGS: Pulmonary parenchyma: Near complete resolution of central left upper lobe consolidation. Small left upper lobe nodules have resolved. Airways: No central endobronchial abnormality. Pleura: No effusion. Lymph nodes: No lymphadenopathy. Heart and vasculature: Normal size of the heart. There is mild coronary artery calcification. No pericardial effusion. Normal caliber of the thoracic aorta. Upper abdomen: Small calcified granuloma in the spleen. Skeletal structures: No significant findings. 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 Lymphoma is of concern ifthere is worsening/failure to improve. TECHNIQUE: Helical CT of the chest without intravenous contrastadministration. Thin-section reconstructions as well as coronal and sagittal reformattedimages were generated. COMPARISON: 05/07/2023 FINDINGS: Pulmonary parenchyma: Near complete resolution of central left upperlobe consolidation. Small left upper lobe nodules have resolved. Airways: No central endobronchial abnormality. Pleura: No effusion. Lymph nodes: No lymphadenopathy. Heart and vasculature: Normal size of the heart. There is mild coronaryartery calcification. No pericardial effusion. Normal caliber of the thoracicaorta. Upper abdomen: Small calcified granuloma in the spleen. Skeletal structures: No significant findings. IMPRESSION 1. Near complete resolution of central left upper lobe consolidation 2. Mild coronary artery calcification, abnormal for patient's age.Formal cardiovascular risk assessment is recommended if not already performed. Thank you for letting us participate in the care of this patient. If youare a health care provider and have any questions regarding this report,please contact the number below. For patients who have questions please contactthe health career guidance technician that requested your imaging first. Electronically signed by: Eliecer Wynn MD, [facility]([phone]), at 07/05/2023 4:50 PM Avila Washington MD IMG CT ORDERABLES documented in this encounter Visit Diagnoses Diagnosis Lung mass Swelling, mass, or lump in chest documented in this encounter Care Teams Millinery Salesperson Relationship Specialty Start Date End Date None None PCP - General 04/13/23 documented as of this encounter
--- OUTSIDE RECORDS SUMMARY | 2023-11-15 19:51 | XMS_ITS | Encounter Summary ---
Author Organization [facility] Address [facility] [place] [address] Care Team Providers Care Family Life Educator Name Role Phone None Primary Care Provider Unavailabl e Reason for Visit * Diagnostic Test (STAT) - Closed Specialty Diagnoses / Procedures Referred By Contcandace t Referred To Contact Radiology Diagnoses Lung mass Procedures NM PET CT Skull Base to Mid-thigh Avila Washington MD [facility] [place] [address] [place] [address] Referral ID Status Reason Start Date Expiration Date V isits Requested Visits Authorized [id number] Closed Specialty Service Requested 04/14/2023 10/12/2024 1 1 Encounter Details Date Type Department Care Team (Latest Contact Info) Description 04/24/2023 11:10 AM EST - 04/24/2023 11:59 PM [facility] Hospital Encounter [place] [address] Avila Washington MD [facility] [place] [address] Discharge Disposition: Home Social History [...] 120 mg qAM, 100 mg qPM from [facility] methadone clinic in [facility]. This dose was confirmed with Dr. Monika Hamlin (clinic medical apparatus model maker) on 04/13/2023. Indications: dependence on opioid-type drugs 04/13/2023 documented as of this encounter Plan of Treatment Not on file documented as of this encounter Procedures Procedure Name Priority Date/Time Associated Diagnosis Comments NM PET CT SKULL BASE TO MID-THIGH ([facility]) STAT 04/24/2023 12:30 PM EST Lung mass documented in this encounter Visit Diagnoses Not on filedocumented in this encounter Administered Medications Inactive Administered Medications - up to 3 most recent administrations Medication Order MAR Action Action Date Dose Rate Site fludeoxyglucose (F-18) FDG injection 0-20 mCi 0-20 mCi, Intravenous, ONCE PRN, 1 dose, Starting on Sat04/24/23 at 1126, Until Sat04/24/23 at 1124, Per Protocol, Radiology Contrast, Routine Given 04/24/2023 11:24 AM EST 11.5 mCi Right Arm documented in this encounter Care Teams Family Life Educator Relationship Specialty Start Date End Date None None PCP - General 04/13/23 documented as of this encounter
--- OUTSIDE RECORDS SUMMARY | 2023-11-15 19:51 | XMS_ITS | Encounter Summary ---
Author Organization [facility] Address [facility] [place] [address] Care Team Providers Care Flamer After Lasting Name Role Phone None Primary Care Provider Unavailabl e Encounter Details Date Type Department Care Team (Latest Contact Info) Description 04/13/2023 Travel Social History Tobacco Use Types Packs/Day [...] on filedocumented in this encounter Care Teams Flamer After Lasting Relationship Specialty Start Date End Date None None PCP - General 04/13/23 documented as of this encounter
--- OUTSIDE RECORDS SUMMARY | 2023-11-15 19:51 | XMS_ITS | Encounter Summary ---
Author Organization [facility] Address [facility] [place] [address] Care Team Providers Care Fitter Helper Name Role Phone None Primary Care Provider Unavailabl e Encounter Details Date Type Department Care Team (Latest Contact Info) Description 04/23/2023 Travel Social History Tobacco Use Types Packs/Day [...] on filedocumented in this encounter Care Teams Fitter Helper Relationship Specialty Start Date End Date None None PCP - General 04/13/23 documented as of this encounter
--- OUTSIDE RECORDS SUMMARY | 2023-11-15 19:51 | XMS_ITS | Encounter Summary ---
[place] [address] Care Team Providers Care Sales Representative Printing Paper Name Role Phone None Primary Care Provider Unavailabl e Reason for Visit * Reason Onset Date Comments Other 07/16/2023 SOB Encounter Details Date Type Department Care Team (Late st Contact Info) Description 07/16/2023 Telephone [place] [phone] Glo Mccrary RN Other (SOB) Social History Tobacco Use Types Packs/Day Years Used Date Smoking Tobacco: Never Smokeless Tobacco: Never Alcohol Use Standard Drinks/Week Comments No 0 (1 standard drink = 0.6 oz pur e alcohol) [facility] Inpatient Questions Answer Date Recorded Does [...] Telephone Encounter - Glo Mccrary RN - 07/19/2023 9:13 AM EDT Attempted to call pt again. No answer. Left VMM to call me back. ZIYAD Reis, RN Pulmonary 5C Clinic Pager: [phone] * Telephone Encounter - Glo Mccrary RN - 07/16/2023 2:32 PM EDT Copied from [facility] #[id number]. Topic: Specialty Dept CRMs - Triage >> July 16, 2023 8:06 AM Zuleyka Tipton wrote: Triage Message Specialist: Tommy Britt Relationship (if other than patient-full name): self Symptom: Increased shortness of breath Has patient experienced symptom before: yes If patient has experienced symptom before, when was the last time this occurred: 05/14/23 Is patient currently having symptom: yes When did symptom begin: n/a Additional Comments: Patient stated he has been on prednisone for 6 weeks for a mass on his lungs but since he has stopped taking it, he is experiencing increased shortness of breath and he can feel a lump on his left breast. I have attempted to call pt back to further assess, no answer, left VMM to call me back. ZIYAD Reis, RN Pulmonary 5C Clinic Pager: [phone] documented in this encounter Plan of Treatment Not on file documented as of this encounter Visit Diagnoses Not on filedocumented in this encounter Care Teams Sales Representative Printing Paper Relationship Specialty Start Date End Date None None PCP - General 04/13/23 documented as of this encounter
--- OUTSIDE RECORDS SUMMARY | 2023-11-15 19:51 | XMS_ITS | Encounter Summary ---
Author Organization [facility] [place] [address] Care Team Providers Care Kraft Mill Operator Name Role Phone None Primary Care Provider Unavailabl e Reason for Referral * Diagnostic Test (Routine) - Closed Specialty Diagnoses / Procedures Referred By Peace eng Referred To Contact Radiology Diagnoses Lung mass Procedures CT Chest wo Contrast (Generic) Avila Washington MD [facility] [place] [address] [facility] [place] [address] Referral ID Status Reason Start Date Expiration Date V isits Requested Visits Authorized [id number] Closed Specialty Service Requested 05/01/2023 10/31/2024 1 1 Encounter Details Date Type Department Care Team (Late st Contact Info) Description 05/01/2023 Telephone [place] [address] Avila Washington MD [facility] [place] [address] Social History Tobacco Use Types Packs/Day Years Used Date Smoking Tobacco: Never Smokeless Tobacco: Never Alcohol Use Standard Drinks/Week Comments No 0 (1 standard drink = 0.6 oz pur e alcohol) [facility] Inpatient Questions Answer Date Recorded Does Anyone [...] Telephone Encounter - Avila Washington MD - 05/01/2023 12:57 PM EDT Images from the original note were not included. Interventional Pulmonology Telephone Encounter: I called Mr. Corey Santos on 05/01/2023 at 12:57 PM. We discussed the results from his recent bronchoscopy TBBX and EBUS notable for lymphocytes from all biopsied lymph nodes and necrotizing granuloma from the ROMA mass. We do not have cultures. Flow only sent from station 7 which was negative. We discussed the differential diagnosis of necrotizing granuloma including possibility of undiagnosed lymphoma, true necrotizing inflammatory disease, and atypical infection. We discussed empiric steroids versus repeat biopsies and I recommended the latter; we would pursue this as robotic assisted bronchoscopy with core biopsies of the ROMA mass to include culture data from biopsies and flow the the massproper. We also discussed the role of surgery in select cases from a diagnostic perspective and thediagnostic dilemma lymphoma (especially HL) can pose. He was provided ample time to ask questions which were answered to his liking and was in agreement with this plan. Avila Washington MD, 05/01/2023, 12:57 PM Interventional Pulmonology Section of Pulmonary & Critical Care Pager: [phone] documented in this encounter Plan of Treatment Not on file documented as of this encounter Results * CT Chest wo [...] who have questions please contact the health home health care physician that requested your imaging first. ? Electronically signed by: Giselle Aguilar MD, [facility] ([phone]), at 05/07/2023 10:57 AM Narrative 05/07/2023 10:57 [...] patients who have questions please contactthe health home health care physician that requested your imaging first. Electronically signed by: Giselle Aguilar MD, [facility]([phone]), at 05/07/2023 10:57 AM Avila Washingtno MD IMG CT ORDERABLES documented in this encounter Visit Diagnoses Diagnosis Lung mass Swelling, mass, or lump in chest Lung mass Swelling, mass, or lump in chest documented in this encounter Care Teams Kraft Mill Operator Relationship Specialty Start Date End Date None None PCP - General 04/13/23 documented as of this encounter
--- OUTSIDE RECORDS SUMMARY | 2023-11-15 19:51 | XMS_ITS | Encounter Summary ---
Author Organization [facility] [place] [address] Care Team Providers Care Drill Presser Name Role Phone None Primary Care Provider Unavailabl e Encounter Details Date Type Department Care Team (Late st Contact Info) Description 08/26/2023 [place] [address] Glo Mccrary RN Social History Tobacco Use Types Packs/Day Years Used Date Smoking Tobacco: Never Smokeless Tobacco: Never Alcohol Use Standard Drinks/Week Comments No 0 (1 standard drink = 0.6 oz pur e alcohol) [facility] Inpatient Questions Answer Date Recorded [...] Telephone Encounter - Glo Mccrary RN - 08/26/2023 12:52 PM EDT Copied from CRM #[id number]. Topic: Specialty Dept CRMs - Triage >> Aug 26, 2023 10:45 AM Ivanna Garcia wrote: Triage Message Specialist: Tommy Britt MD Relationship (if other than patient-full name): Patient Symptom: Increased shortness of breath Has patient experienced symptom before yes If patient has experienced symptom before, when was the last time this occurred been ongoing Is patient currently having symptom yes When did symptom begin been ongoing for a couple weeks now Additional Comments: Corey calling in states that he would like to see the doctor soon. He said that he is having increased shortness of breath, difficulty trying to catch his breath and always tiredagain. Please call Corey back to discuss. I have attempted to call pt back to discuss symptoms. No answer, reached vm and left vmm to call meback. ZIYAD Reis, RN Pulmonary [facility]C Clinic Pager: [phone] documented in this encounter Plan of Treatment Not on file documented as of this encounter Visit Diagnoses Not on filedocumented in this encounter Care Teams Drill Presser Relationship Specialty Start Date End Date None None PCP - General 04/13/23 documented as of this encounter
--- OUTSIDE RECORDS SUMMARY | 2023-11-15 19:51 | XMS_ITS | Encounter Summary ---
Author Organization [facility] [place] [address] Care Team Providers Care Recreational Assistant Name Role Phone None Primary Care Provider Unavailabl e Encounter Details Date Type Department Care Team (Late st Contact Info) Description 08/01/2023 [place] [address] Debbie Frost RN Social History Tobacco Use Types Packs/Day [...] encounter Miscellaneous Notes * Telephone Encounter - Debbie Frost RN - 08/01/2023 9:08 AM EDT PC to help schedule CT Chest wo Contrast ordered 07/04/23 by Tommy Britt MD Transferred call to CT dept to schedule imaging documented in this encounter Plan of Treatment Not on file documented as of this encounter Visit Diagnoses Not on filedocumented in this encounter Care Teams Recreational Assistant Relationship Specialty Start Date End Date None None PCP - General 04/13/23 documented as of this encounter
--- OUTSIDE RECORDS SUMMARY | 2023-11-15 19:51 | XMS_ITS | Encounter Summary ---
Author Organization [facility] [place] [address] Care Team Providers Care Spiral Winder Name Role Phone None Primary Care Provider Unavailabl e Reason for Referral * Diagnostic Test (Routine) - Closed Specialty Diagnoses / Procedures Referred By Contac t Referred To Contact Radiology Diagnoses Mass of upper lobe of left lung Procedures CT Chest wo Contrast (Generic) Tommy Britt MD [facility] [place] [address] [facility] [place] [address] Referral ID Status Reason Start Date Expiration Date V isits Requested Visits Authorized [id number] Closed Specialty Service Requested 07/04/2023 01/03/2025 1 1 Reason for Visit * Diagnostic Test (Routine) - Closed Specialty Diagnoses / Procedures Referred By Contac t Referred To Contact Radiology Diagnoses Mass of upper lobe of left lung Procedures CT Chest wo Contrast (Generic) Tommy Britt MD [facility] [place] [address] [facility] [place] [address] Referral ID Status Reason Start Date Expiration Date V isits Requested Visits Authorized [id number] Closed Specialty Service Requested 07/04/2023 01/03/2025 1 1 Encounter Details Date Type Department Care Team (Latest Contact Info) Description 10/01/2023 10:37 AM EDT - 10/01/2023 11:59 PM EDT Hospital Encounter CT Scan at [facility] [place] [address] Tommy Britt MD [facility] DR [place] [address] Mass of upper lobe of left lung Discharge Disposition: Home Social History Tobacco Use [...] mg qAM, 100 mg qPM from [facility] methadone clinic in [facility]. This dose was confirmed with Dr. Monika Hamlin (clinic medical health researcher) on 04/13/2023. Indications: dependence on opioid-type drugs 04/13/2023 documented as of this encounter Plan of Treatment Not on file documented as of this encounter Procedures Procedure Name Priority Date/Time Associated Diagnosis Comments CT CHEST WO CONTRAST (GENERIC) Routine 10/01/2023 10:49 AM EDT Mass of upper lobe of left lung documented in this encounter Results * CT Chest wo Contrast (Generic) (10/01/2023 10:49 AM EDT) WORKSTATION ID [id number] RAD Anatomical Region Laterality Modality Chest Computed [...] who have questions please contact the health transitional care liaison that requested your imaging first. ? Electronically signed by: Giselle Aguilar MD, [facility] ([phone]), at 10/04/2023 9:41 AM Narrative 10/04/2023 9:41 AM EDT EXAMINATION: CT [...] patients who have questions please contactthe health transitional care liaison that requested your imaging first. Tommy Britt MD IMG CT ORDERABL ES documented in this encounter Visit Diagnoses Diagnosis Mass of upper lobe of left lung documented in this encounter Care Teams Spiral Winder Relationship Specialty Start Date End Date None None PCP - General 04/13/23 documented as of this encounter
--- OUTSIDE RECORDS SUMMARY | 2023-11-15 19:51 | XMS_ITS | Encounter Summary ---
[place] [address] Care Team Providers Care Hybrid Powertrain Development Engineer Name Role Phone None Primary Care Provider Unavailabl e Reason for Visit * Reason Onset Date Comments Pre Procedure Call 04/15/2023 Bronchoscopy Encounter Details Date Type Department Care Team (Late st Contact Info) Description 04/15/2023 [place] [phone] Zuleyka Galeas Pre Procedure Call (Bronchoscopy ) Social History Tobacco Use Types Packs/Day Years Used Date Smoking Tobacco: Never Smokeless Tobacco: Never Alcohol Use Standard Drinks/Week Comments No 0 (1 standard drink = 0.6 oz pur e alcohol) [facility] Inpatient Questions Answer Date Recorded [...] Telephone Encounter - Zuleyka Johnson RN - 04/16/2023 12:59 PM EST I have called pt in preparation of planned bronchoscopy on 04/25/23. I have conformed with pt that heis only taking methadone at this time. He has taken Lovenox previously for a PE in ~2016. Pt is no longer taking any blood thinning medication including ASA 81 mg. Pt is not using any oxygen. Zuleyka Johnson RN Department of Pulmonary 5C, [facility] [place] Pager: [phone] documented in this encounter Plan of Treatment Not on file documented as of this encounter Visit Diagnoses Not on filedocumented in this encounter Care Teams Hybrid Powertrain Development Engineer Relationship Specialty Start Date End Date None None PCP - General 04/13/23 documented as of this encounter
--- OUTSIDE RECORDS SUMMARY | 2023-11-15 19:51 | XMS_ITS | Encounter Summary ---
Author Organization [facility] Address [facility] [place] [address] Care Team Providers Care Substation Maintenance Technician Name Role Phone None Primary Care Provider Unavailabl e Reason for Referral * Diagnostic Test (Routine) - Closed Specialty Diagnoses / Procedures Referred By Contac t Referred To Contact Radiology Diagnoses Mass of upper lobe of left lung Procedures CT Chest wo Contrast (Generic) Tommy Britt MD [facility] [place] [address] [facility] [place] [address] Referral ID Status Reason Start Date Expiration Date V isits Requested Visits Authorized [id number] Closed Specialty Service Requested 07/04/2023 01/03/2025 1 1 Encounter Details Date Type Department Care Team (Latest Contact Info) Description 07/04/2023 3:00 PM EDT [place] [address] Tommy Britt MD [facility] [place] [address] Mass of upper lobe of left lung; Necrotizing granulomatous inflammation of lung Social History Tobacco Use Types Packs/Day Years [...] Mass Index 24.07 07/04/2023 2:30 PM EDT documented in this encounter Progress Notes * Tommy Britt MD - 07/04/2023 3:00 PM EDT Images from the original note were not included. INTERVENTIONAL PULMONOLOGY OUTPATIENT FOLLOW-UP NOTE SECTION OF PULMONARY & CRITICAL CARE MEDICINE PATIENT NAME: Corey Santos : 1990 MEDICAL RECORD: [id number] DATE OF SERVICE: 07/04/2023 PRIMARY CARE PHYSICIAN: None Mr. Corey Santos is a 33 y.o. gentleman who I last saw on 05/07/23 at the time of his bronchoscopy and returns today for follow-up of of a left upper lobe mass seen on chest CT. As the most recent bronchoscopy was non-diagnostic, Dr. Washington discussed obtaining more tissue via VATS vs an empiric trialof steroids, given the necrotizing granuloma that returned from his 1st bronchoscopy on 05/07/23. Mr. Santos decided on a course of steroids and has been taking Prednisone 60mg/d tapering to off to offover 6w, finishing this week. He has been doing quite well with significant improvement in his dyspnea and chest pressure. 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 He denies any fever, chills, sweats or weight loss. He denies any cough or hemoptysis. Review of Systems: A 12 point ROS was negative aside from as listed above. Since his initial visit with pulmonary on 04/18/23 there has been no change in his past, family or social history. Medications: Prior to Admission medications Medication Sig Start Date End Date Taking? Authorizing Provider methadone (Dolophine) 10 mg/mL oral concentrate Take 10-12 mLs by mouth 2 times daily. Receives Methadone 120 mg qAM, 100 mg qPM from [email or web address] in [facility]. This dose was confirmed with Dr. Monika Hamlin (clinic medical laboratory technician) on 04/13/2023. Indications: dependence on opioid-type drugs 04/13/23 Daphne Peter MD Allergies: Allergies Allergen Reactions Levofloxacin Itching IV Objective: Patient Vitals for the past 24 hrs: Temp Pulse Resp BP SpO2 07/04/23 1430 35.9 ??C (96.7 ??F) 86 15 107/68 100 % General: This is a 33 y.o. male HEENT: Moist mucous membranes, sclera are white Neck: Supple, trachea is midline Lymphatics: No obvious lymphadenopathy Cardiovascular: Nl s1/s2, rrr Respiratory: Clear to auscultation bilaterally GI: soft, nt, nd Extremities: no LE edema noted, no clubbing Imaging: (Images personally reviewed) 07/04/[address] c/w 05/07/23 and 04/13/23: Official read pending. On my read, there has been a significant interval reduction in the size of the ROMA mass. The more apical RUL nodule is resolve and themore caudal RUL nodule seems stable / slightly decreased. There is mild interval reduction in the 4R lymph node. 05/07/23 04/13/23 05/07/23 Tissue Cx: CN Staph, AFB/fungal stain & Cx neg Assessment and Plan: Mr. Corey Santos is a 33 y.o. gentleman who presents to the Interventional Pulmonology clinic for follow-up of a left upper lobe mass that was initially found on CT after presenting to the ED in March with chest discomfort and night sweats. He has undergone robotic bronchoscopy with EBUS x 2, the1st showing necrotizing granuloma, and the 2nd was non-diagnostic. He has recently received a roundof Prednisone with significant improvement in his symptoms and chest CT. This is suggestive of GPA,though he had no other classic manifestations. SUPERVISOR SHOP and Sarcoid are on the differential, though I would expect more non-necrotizing granuloma. Likewise, hypersensitivity pneumonitis typically doesn't present as a mass-like opacity, and also has well-formed granuloma. Lymphoma and lymphomatoid granulomatosis are possible as well, as is bronchocentric granulomatosis. Pulmonary Langerhan's cell histiocytosis is lower on the differential as well. I would doubt infection given lack of improvement with antibiotics, no culture positivity and lack of worsening on steroids. We discussed that he should not smoke marijuana and consider wearing a mask during work. I recommended a repeat chest CT in 3m, sooner if any clinical worsening. Should he develop clinical / radiographic worsening, I would recommend obtaining vasculitis labs and peripheral flow cytometry. All of his questions were answered andhe agrees with this plan. Tommy Britt MD, 07/04/2023, 2:41 PM Interventional Pulmonology Section of Pulmonary & Critical Care Pager: [phone] I personally performed a total of 40min of aggregate time involved in patient evaluation, reviewingmedical records, interpreting diagnostic studies (imaging and/or labs), formulating my plan, and documentation of this consultation note. I provided medical care services that are part of the ongoing care related to the patient's serious/complex condition. documented in this encounter Plan of Treatment Not on file documented as of this encounter Results * CT Chest wo Contrast (Generic) (10/01/2023 10:49 AM EDT) WORKSTATION ID [id number] DH RAD Anatomical Region Laterality Modality Chest Computed [...] who have questions please contact the health child day care provider that requested your imaging first. ? Electronically signed by: Giselle Aguilar MD, [facility] ([phone]), at 10/04/2023 9:41 AM Narrative 10/04/2023 9:41 [...] patients who have questions please contactthe health child day care provider that requested your imaging first. Tommy Britt MD IMG CT ORDERABL ES documented in this encounter Visit Diagnoses Diagnosis Mass of upper lobe of left lung Necrotizing granulomatous inflammation of lung Mass of upper lobe of left lung documented in this encounter Care Teams Substation Maintenance Technician Relationship Specialty Start Date End Date None None PCP - General 04/13/23 documented as of this encounter
--- OUTSIDE RECORDS SUMMARY | 2023-11-15 19:51 | XMS_ITS | Encounter Summary ---
Author Organization [facility] Address [facility] [place] [address] Care Team Providers Care Road Machine Operator Name Role Phone None Primary Care Provider Unavailabl e Encounter Details Date Type Department Care Team (Latest Contact Info) Description 04/18/2023 Travel Social History Tobacco Use Types Packs/Day [...] on filedocumented in this encounter Care Teams Road Machine Operator Relationship Specialty Start Date End Date None None PCP - General 04/13/23 documented as of this encounter
--- OUTSIDE RECORDS SUMMARY | 2023-11-15 19:51 | XMS_ITS | Encounter Summary ---
Author Organization [facility] [place] [address] Care Team Providers Care Rippler Name Role Phone None Primary Care Provider Unavailabl e Encounter Details Date Type Department Care Team (Late st Contact Info) Description 04/24/2023 [place] [phone] Jyoti Alva RN Social History Tobacco Use Types Packs/Day [...] encounter Miscellaneous Notes * Telephone Encounter - Jyoti Alva RN - 04/24/2023 10:01 AM EST Made scheduled call to review instructions prior to interventional pulmonary procedure: [x] Informed patient of date, time, and location of procedure or pre-procedure imaging or tests as applicable. Arrive 7:40 8:40 procedure. [] Informed patient they must have intermodal truck driver who accompanies them into and to drive pt home safely after the procedure. -Masking is now optional if you do not have COVID/ pulmonary symptoms but masks will continue to still be available at all entrance locations and throughout the building. [] Reviewed home oxygen or ventilation use: [x] Patient not on home ventilator or oxygen [] Patient is on home oxygen and/or ventilator (document amount and type of oxygen device): [] Patient confirms they will bring necessary supplies for transport to and from [] Patient identifies this potential supply issue: Will document and contact their DME for assistance. [] Medication review: Confirm any new medications since last seen in Pulmonary. Only need to reviewblood thinners, insulin and rescue inhaler. [] Patient has rescue inhaler (e.g., albuterol) and will bring to procedure [x] Anticoagulation and anti-platelet therapy reviewed: [x] No anticoagulation or anti-platelet therapy [] Patient will hold anticoagulation or anti-platelet therapy as directed (See IP job aid for standard instructions or MD note for special instructions) [] Insulin use reviewed: [x] No insulin therapy [] Patient taking insulin: Instructed to take half of long acting dose, and NOT take short acting dose morning of procedure [] Patient understands they are to take all other medications the day of procedure unless specifically addressed 5. [x] NPO instructions reviewed with patient: -Do not have anything to eat/ no solid food after midnight tonight. -Pt permitted to have any amount of clear up to two hours before scheduled procedure. -Clear liquid allowed are: water, emmanuelle francheska, apple juice, black coffee or tea. Sugar or sugar substitutes are fine in coffee or tea, however pt not permitted to have any dairy products (or dairy substitutes) after midnight- No milk, cream, or creamers. -Okay to take small sips of water to take allowed medications within 2 hours of the procedure. -Failure to abide to these dietary instructions may result in cancellation of procedure. liquids 6. [x] COVID screening [] Patient denies current symptoms or exposures as per most recent COVID Screening Job Aid 7. Other questions addressed during this call: documented in this encounter Plan of Treatment Not on file documented as of this encounter Visit Diagnoses Not on filedocumented in this encounter Care Teams Rippler Relationship Specialty Start Date End Date None None PCP - General 04/13/23 documented as of this encounter
--- OUTSIDE RECORDS SUMMARY | 2023-11-15 19:51 | XMS_ITS | Encounter Summary ---
Author Organization [facility] Address [facility] [place] [address] Care Team Providers Care Platen Press Operator Name Role Phone None Primary Care Provider Unavailabl e Encounter Details Date Type Department Care Team (Late st Contact Info) Description 05/13/2023 Tele[place] [phone] Avila Washington MD [facility] [place] [address] Social History Tobacco Use Types Packs/Day Years Used Date Smoking Tobacco: Never Smokeless Tobacco: Never Alcohol Use Standard Drinks/Week Comments No 0 (1 standard drink = 0.6 oz pur e alcohol) [facility] Inpatient Questions Answer Date Recorded [...] Encounter - Avila Washington MD - 05/13/2023 3:45 PM EDT Interventional Pulmonology Telephone Encounter: I called Mr. Corey Santos on 05/13/2023 at 3:45 PM. No answer and a voice mail was left to call our office at [phone] to discuss his recent robotic assisted bronchoscopy and EBUS results. This is our third attempt to contact Corey by telephone. Avila Washington MD, 05/13/2023, 3:45 PM Interventional Pulmonology Section of Pulmonary & Critical Care Pager: [phone] documented in this encounter Plan of Treatment Not on file documented as of this encounter Visit Diagnoses Not on filedocumented in this encounter Care Teams Platen Press Operator Relationship Specialty Start Date End Date None None PCP - General 04/13/23 documented as of this encounter
--- OUTSIDE RECORDS SUMMARY | 2023-11-15 19:52 | XMS_ITS | Encounter Summary ---
Author Organization [facility]ly [facility] Address [facility] [place] [address] Care Team Providers Care Garage Helper Name Role Phone Tristian Chase MD, Marlon Primary Care Provider [phone] Encounter Details Date Type Department Care Team (Latest Contact Info) Description 05/27/2015 12:05 AM EDT - 05/27/2015 11:59 PM EDT Hospital Encounter Radiology Library at [facility] [place] [address] Discharge Disposition: Home Social History Tobacco Use Types Packs/Day Years Used Date Smoking Tobacco: Never Assessed Sex and Gender Information Value Date Recorded Sex Assigned at Not on file Gender Identity Not on file Sexual Orientation Not on file documented as of this encounter Medications at Time of Discharge Medication Sig Dispensed Refills Start Date End Date ranitidine (ZANTAC) 15 mg/mL syrup 10 ml, PO, Twice daily 03/21/2006 04/13/2023 documented as of this encounter Plan of Treatment Not on file documented as of this encounter Procedures Procedure Name Priority Date/Time Associated Diagnosis Comments FILM LIBRARY STORAGE ONLY CT HEAD AND SPINE STAT 05/27/2015 12:05 AM EDT Pain documented in this encounter Results * Film Library- Storage Only CT Head And Spine (05/27/2015 12:05 AM EDT) Narrative User, Generic Transmittal - 05/30/2015 9:25 PM EDT This exam is for storage only and is auto-finalizing. Dr Reeves [facility] FILM LIBRARY ORD ERABLES documented in this encounter Visit Diagnoses Not on filedocumented in this encounter Care Teams Garage Helper Relationship Specialty Start Date End Date Marlon Lubin MD [address] [place] [address] PCP - General 01/10/10 04/12/23 documented as of this encounter
--- OUTSIDE RECORDS SUMMARY | 2023-11-15 19:52 | XMS_ITS | Encounter Summary ---
Author Organization [facility] [place] [address] Care Team Providers Care Hide Puller Name Role Phone Tristian Chase MD, Marlon Primary Care Provider [phone] Encounter Details Date Type Department Care Team (Latest Contact Info) Description 05/28/2015 - 05/28/2015 11:59 PM EDT Hospital Encounter Radiology Library [place] [facility] [place] [address] Discharge Disposition: Home Social History Tobacco Use [...] Associated Diagnosis Comments FILM LIBRARY STORAGE ONLY DX CHEST STAT 05/28/2015 12:00 AM EDT Pain documented in this encounter Results * Film Library- Storage only DX Chest (05/28/2015 12:00 AM EDT) Narrative User, Generic Transmittal - 05/30/2015 9:18 PM EDT This exam is for storage only and is auto-finalizing. Sami Jacobs MD IMG FILM LIBRARY OR DERABLES documented in this encounter Visit Diagnoses Not on filedocumented in this encounter Care Teams Hide Puller Relationship Specialty Start Date End Date Marlon Lubin MD [address] [place] [address] PCP - General 01/10/10 04/12/23 documented as of this encounter
--- OUTSIDE RECORDS SUMMARY | 2023-11-15 19:52 | XMS_ITS | Encounter Summary ---
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 [facility] Comment: The methadone metabolite screen detects EDDP (major methadone metabolite) at concentrations >100 ng/mL. A ? Presumptive Positive? result indicates that the screening result was positive but has not yet been confirmed by a highly-specific method. As with any screen, occasional false positive results from cross-reacting substances may occur. Not for Medico-Legal Purposes. Opiate Screen, Urine None Detected None Detected [facility] Comment: The opiates screen detects opiates at concentrations >300 ng/mL. Please note that oxycodone, oxymorphone, fentanyl, tramadol, and other synthetic opioids are not detected by the opiate screen. A ? Presumptive Positive? result indicates that the screening result was positive but has not yet been confirmed by a highly-specific method. As with any screen, occasional false positive results from cross-reacting substances may occur. Not for Medico-Legal Purposes. Cannabinoid Screen, Urine Presumptive Pos(A) None Detected [facility] Comment: The marijuana metabolites screen detects the THC metabolite (23-mti-1-carboxy-delta 9-THC) at concentrations >20 ng/mL. A ? Presumptive Positive? result indicates that the screening result was positive but has not yet been confirmed by a highly-specific method. As with any screen, occasional false positive results from cross-reacting substances may occur. Not for Medico-Legal Purposes. Oxycodone Screen, Urine None Detected None Detected [facility] Comment: The oxycodone screen detects oxycodone and oxymorphone at concentrations >100 ng/mL. A ? Presumptive Positive? result indicates that the screening result was positive but has not yet been confirmed by a highly-specific method. As with any screen, occasional false positive results from cross-reacting substances may occur. Not for Medico-Legal Purposes. Buprenorphine Screen, Urine None Detected None Detected [facility] Comment: The buprenorphine screen detects buprenorphine at concentrations >=5 ng/mL. A ? Presumptive Positive? result indicates that the screening result was positive but has not yet been confirmed by a highly-specific method. As with any screen, occasional false positive results from cross-reacting substances may occur. Not for Medico-Legal Purposes. This test has not been cleared by the [place] FDA. Performance characteristics of this test were determined by [facility] in accordance with CLIA requirements. This laboratory is qualified under CLIA to perform high-complexity testing. Fentanyl Screen, Urine None Detected None Detected [facility] Comment: The fentanyl screen detects fentanyl at concentrations >=2 ng/mL. A ? Presumptive Positive? result indicates that the screening result was positive but has not yet been confirmed by a highly-specific method. As with any screen, occasional false positive results from cross-reacting substances may occur. Not for Medico-Legal Purposes. This test has not been cleared by the [place] FDA. Performance characteristics of this test were determined by [facility] in accordance with CLIA requirements. This laboratory is qualified under CLIA to perform high-complexity testing. Tricyclics Screen, Urine None Detected None Detected [facility] Comment: The tricyclics screen detects tricyclic antidepressants at concentrations >=150 ng/mL. Not all tricyclics cross-react equally with the antibody used in this screen. A ? Presumptive Positive? result indicates that the screening result was positive but has not yet been confirmed by a highly-specific method. As with any screen, occasional false positive results from cross-reacting substances may occur. Not for Medico-Legal Purposes. This test has not been cleared by the [place] FDA. Performance characteristics of this test were determined by [facility] in accordance with CLIA requirements. This laboratory is qualified under CLIA to perform high-complexity testing. Ethanol Screen, Urine None Detected None Detected [facility] Comment:This urine ethanol a ssay detects ethanol at concentrations >/= 100 mg/L. Amphetamines Screen, Urine None Detected None Detected [facility] Comment: The amphetamine screen detects d-amphetamine and d-methamphetamine at concentrations >300 ng/mL. A ? Presumptive Positive? result indicates that the screening result was positive but has not yet been confirmed by a highly-specific method. As with any screen, occasional false positive results from cross-reacting substances may occur. Not for Medico-Legal Purposes. Creatinine Specimen Validity Test, Urine 123 >=20 mg/dL [facility] Chromate Specimen Validity Test, Urine <2.0 <=49.9 mg/L [facility] Nitrite Specimen Validity Test, Urine <50 <=499 mg/L [facility] Oxidant Specimen Validity Test, Urine 30 <=199 mg/L [facility] pH Specimen Validity Test, Urine 6.0 3.0 - 10.9 [facility] Adulterants Screen, Urine None Detected None Detected [facility] Comment:No adulteration of t his urine sample was detected. Urine 04/13/2023 5:50 PM EST 04/13/2023 5:53 PM EST Narrative Resulting Agency Comment Spec In Lab Daphne Peter MD CHEMISTRY ORDERABLES Performing Organization Address City/[facility] Co de Phone Number [facility] [place] [address] * Rapid Drug Screen, Urine (ANNA Request) (04/13/2023 5:50 PM EST) ANNA Conf Requested No [facility] Comment: Collection date/time has been modified to: 17:50:00. ??Previous collection date/time: 17:09:00. Corrected from No [NA] on 04/13/23 17:54:26 EST by Ajay Wei. ANNA Requested See Comment [facility] Comment: Refer to Rapid Drug Screen w/o Confirmation, Urine for results. Collection date/time has been modified to: 17:50:00. ??Previous collection date/time: 17:09:00. Corrected from See Comment [NA] on 04/13/23 17:54:26 EST by Ajay Wei Urine 04/13/2023 5:50 PM EST 04/13/2023 5:53 PM EST Narrative Resulting Agency Comment Spec In Lab Daphne Peter MD URINE ORDERABLES Performing Organization Address [facility] Co de Phone Number [facility] [place] [address] * Blood culture (04/13/2023 5:38 PM EST) Blood Culture No growth at 5 days. [facility] Blood 04/13/2023 5:38 PM EST 04/13/2023 6:42 PM EST Comment:r arm Narrative Resulting Agency Comment Spec In Lab Daphne Peter MD MICROBIOLOGY - BLOOD ORDERABLES Performing Organization Address [facility] Co de Phone Number [facility] [place] [address] * Green Tube HOLD (04/13/2023 5:31 PM EST) Green Hold Sample in lab. [facility] Blood No Charge / Unknown 04/13/2023 5:31 PM EST 04/13/2023 5:31 PM EST Michele Mares MD CHEMISTRY ORDERABLES Performing Organization Address City/[facility]/ZIP Co de Phone Number [facility] [place] [address] * Blood culture (04/13/2023 5:20 PM EST) Blood Culture No growth at 5 days. [facility] Blood 04/13/2023 5:20 PM EST 04/13/2023 6:40 PM EST Comment:L ARM Narrative Resulting Agency Comment Spec In Lab Daphne Peter MD MICROBIOLOGY - BLOOD ORDERABLES Performing Organization Address [facility] Co de Phone Number [facility] [place] [address] * CT Angiogram Chest for Pulmonary Embolus w Contrast (04/13/2023 2:43 PM EST) Anatomical Region Laterality Modality Chest Computed Tomogra phy Impressions 04/13/2023 3:01 PM EST No pulmonary artery embolism. Corresponding to findings at chest x-ray is a large medial left upper lobe mass with mediastinal invasion. Scattered bilateral subcentimeter pulmonary nodules. Thank you for letting us participate in the care of this patient. ??If you are a health care provider and have any questions regarding this report, please contact the number below. ??For patients who have questions please contact the health campground caretaker that requested your imaging first. ? Electronically signed by: Giselle Aguilar MD, [facility] ([phone]), at 04/13/2023 3:01 PM Narrative 04/13/2023 3:01 PM EST EXAMINATION: CTA CHEST PULMONARY EMBOLISM W CONTRAST CLINICAL HISTORY: Abnormal CXR, ? infarct TECHNIQUE: 3 mm thick axial contiguous sections were obtained through the chest via helical acquisition after the intravenous administration of contrast, Administered 53.0 ml of OMNIPAQUE 350.00 mg/ml. Thin-section reconstructions as well as coronal and sagittal MIP reformatted images were generated to aid in evaluation. COMPARISON: Chest x-ray earlier same day FINDINGS: Pulmonary arteries: No pulmonary arterial filling defects. Other cardiovascular structures: Normal size heart without pericardial effusion Pulmonary parenchyma: Left apical intralobular septal thickening. Corresponding to findings at radiography is a 4.1 x 6.5 x 8.2 cm medial left upper lobe mass, encasing and narrowing left upper lobe bronchovascular structures, extending into the left hilum, encasing the left mainstem bronchus and left main pulmonary artery and invading the mediastinum, abutting the distal aortic arch and proximal descending thoracic aorta and abuts the proximal left subclavian artery. This extends to the posterior aspect of the second left rib.. Additional subcentimeter solid and groundglass nodules in the upper lobes bilaterally and right middle lobe. Airways: Narrowing of encased left bronchi. Pleura: No significant findings. Lymph nodes: Subcentimeter mediastinal and right hilar lymph nodes. 10 mm short axis subcarinal lymph node. Cannot distinguish left hilar lymphadenopathy from invading mass. Other mediastinal structures: As above Upper abdomen: No significant findings. Skeletal structures: No significant findings. Procedure Note Giselle Aguilar MD - 04/13/2023 EXAMINATION: CTA CHEST PULMONARY EMBOLISM W CONTRAST CLINICAL HISTORY: Abnormal CXR, ? infarct TECHNIQUE: 3 mm thick axial contiguous sections were obtained through thechest via helical acquisition after the intravenous administration ofcontrast, Administered 53.0 ml of OMNIPAQUE 350.00 mg/ml. Thin-sectionreconstructions as well as coronal and sagittal MIP reformatted images were generated to aidin evaluation. COMPARISON: Chest x-ray earlier same day FINDINGS: Pulmonary arteries: No pulmonary arterial filling defects. Other cardiovascular structures: Normal size heart without pericardialeffusion Pulmonary parenchyma: Left apical intralobular septal thickening.Corresponding to findings at radiography is a 4.1 x 6.5 x 8.2 cm medial left upper lobemass, encasing and narrowing left upper lobe bronchovascular structures,extending into the left hilum, encasing the left mainstem bronchus and left mainpulmonary artery and invading the mediastinum, abutting the distal aortic arch and proximal descending thoracic aorta and abuts the proximal leftsubclavian artery. This extends to the posterior aspect of the second left rib.. Additional subcentimeter solid and groundglass nodules in the upperlobes bilaterally and right middle lobe. Airways: Narrowing of encased left bronchi. Pleura: No significant findings. Lymph nodes: Subcentimeter mediastinal and right hilar lymph nodes. 10 mmshort axis subcarinal lymph node. Cannot distinguish left hilar lymphadenopathyfrom invading mass. Other mediastinal structures: As above Upper abdomen: No significant findings. Skeletal structures: No significant findings. IMPRESSION No pulmonary artery embolism. Corresponding to findings at chest x-ray is a large medial left upper lobemass with mediastinal invasion. Scattered bilateral subcentimeter pulmonary nodules. Thank you for letting us participate in the care of this patient. If youare a health care provider and have any questions regarding this report,please contact the number below. For patients who have questions please contactthe health campground caretaker that requested your imaging first. Electronically signed by: Giselle Aguilar MD, [facility]([phone]), at 04/13/2023 3:01 PM Yina Dick DO [facility] [place] * Troponin (04/13/2023 1:20 PM EST) Troponin-T, High Sensitivity <6 <=22 ng/L [facility] Comment: This patient's troponin T concentration was determined using the Lauren 5th Generation troponin T assay. The 99th percentile for Troponin T for this test is 14 ng/L for females, and 22 ng/L for males. According to the fourth universal definition of myocardial infarction, the term acute myocardial infarction should be used when there is acute myocardial injury with clinical evidence of acute myocardial ischemia and with detection of a rise and/or fall of cardiac troponin values with at least one value above the 99th percentile and at least one of the following: - Symptoms of myocardial ischemia; - New ischemic ECG changes; - Development of pathological Q waves; - Imaging evidence of new loss of viable myocardium or new regional wall motion abnormality in a pattern consistent with an ischemic etiology; - Identification of a coronary thrombus by angiography or autopsy (not for type 2 or 3 MIs) Serial measurement of troponin and the change in troponin concentration over time (delta) is crucial for the diagnosis of acute myocardial infarction. Guidance on the interpretation of the new 5th Generation Troponin T values and the delta troponin value can be found in the [facility] Test Catalog Troponin - [facility] Test Catalog Reference: [address] [place] Definition of Myocardial Infarction. Journal of the [place] [employer] 2018;72:7101-5294 Blood 04/13/2023 1:20 PM EST 04/13/2023 1:29 PM EST Narrative Resulting Agency Comment Spec In Lab Yina Dick DO CHEMISTRY O RDERABLES [facility] [place] [address] * (ABNORMAL) XR Chest One View (04/13/2023 12:22 PM EST) Anatomical Region Laterality Modality Chest N/A Digital Radiogra phy Impressions 04/13/2023 12:29 PM EST Unexpected finding: New left upper paramediastinal mass. CT scan recommended. Thank you for letting us participate in the care of this patient. ??If you are a health care provider and have any questions regarding this report, please contact the number below. ??For patients who have questions please contact the health campground caretaker that requested your imaging first. ? Electronically signed by: Giselle Aguilar MD, [facility] ([phone]), at 04/13/2023 12:29 PM Narrative 04/13/2023 12:29 PM EST EXAMINATION: XR CHEST ONE VIEW CLINICAL HISTORY: Persistent CP, c/f ACS TECHNIQUE: 1 view of the chest COMPARISON: CT scan of the chest May 30, 2015 FINDINGS: New left upper paramediastinal mass obscuring mediastinal contours exchange left hilum. No consolidation. No pneumothorax. No pleural effusion. No displaced rib fracture. Resulting Agency Comment Unexpected Finding Yina Luong Carri Dick DO IMG DX [facility] * APTT (04/13/2023 12:16 PM EST) Partial Thromboplastin Time 36 25 - 37 sec [facility] Comment: The PTT is NOT appropriate for heparin monitoring. Use the Anti-Xa level for heparin monitoring (HEP UFH) or LMWH monitoring (HEP LMW). A PTT less than 37 seconds generally indicates adequate hemostasis. Blood Venous Draw / Unknown 04/13/2023 12:16 PM EST 04/13/2023 12:35 PM EST Narrative Resulting Agency Comment Spec In Lab Michele Mares MD HEMATOLOGY ORDERABLE S Performing Organization Address [facility] Co de Phone Number [facility] [place] [address] * (ABNORMAL) Prothrombin Time (04/13/2023 12:16 PM EST) Prothrombin Time 14.5(H) 9.4 - 12.5 sec [facility] International Normalization Ratio 1.3 [facility] Comment: An INR <2.0 indicates adequate procoagulant activity for hemostasis in most patients without underlying bleeding disorders, though the INR may not adequately reflect hemostatic capacity in patients with liver disease and synthetic impairment. The recommended target INR range for therapeutic anticoagulation is 2.0 ? 3.0 for most applications, though lower and higher ranges may be appropriate depending on clinical circumstances. Blood Venous Draw / Unknown 04/13/2023 12:16 PM EST 04/13/2023 12:35 PM EST Narrative Resulting Agency Comment Spec In Lab Michele Mares MD HEMATOLOGY ORDERABLE S [facility] [place] [address] * TSH [place] (04/13/2023 12:16 PM EST) Thyroid Stimulating Hormone 2.36 0.27 - 4.20 mcIU/mL [facility] Comment: Reference Interval (mcIU/mL): Females: ??First Trimester: 0.23-3.88 ??Second Trimester: 0.22-3.90 ??Third Trimester: 0.44-4.66 Blood Venous Draw / Unknown 04/13/2023 12:16 PM EST 04/13/2023 12:35 PM EST Narrative Resulting Agency Comment Spec In Lab Michele Mares MD CHEMISTRY ORDERABLES Performing Organization Address City/[facility]/ZIP Co de Phone Number [facility] [place] [address] * Magnesium (04/13/2023 12:16 PM EST) Pathologist [facility] [place] Magnesium 0.86 0.69 - 1.07 mmol/L [facility] Blood Venous Draw / Unknown 04/13/2023 12:16 PM EST 04/13/2023 12:36 PM EST Narrative Resulting Agency Comment Spec In Lab Michele Mares MD CHEMISTRY ORDERABLES Performing Organization Address City/[facility] Co de Phone Number [facility] [place] [address] * Troponin (04/13/2023 12:16 PM EST) Pathologist [facility] [place] Troponin-T, High Sensitivity <6 <=22 ng/L [facility] Comment: This patient's troponin T concentration was determined using the Lauren 5th Generation troponin T assay. The 99th percentile for Troponin T for this test is 14 ng/L for females, and 22 ng/L for males. According to the fourth universal definition of myocardial infarction, the term acute myocardial infarction should be used when there is acute myocardial injury with clinical evidence of acute myocardial ischemia and with detection of a rise and/or fall of cardiac troponin values with at least one value above the 99th percentile and at least one of the following: - Symptoms of myocardial ischemia; - New ischemic ECG changes; - Development of pathological Q waves; - Imaging evidence of new loss of viable myocardium or new regional wall motion abnormality in a pattern consistent with an ischemic etiology; - Identification of a coronary thrombus by angiography or autopsy (not for type 2 or 3 MIs) Serial measurement of troponin and the change in troponin concentration over time (delta) is crucial for the diagnosis of acute myocardial infarction. Guidance on the interpretation of the new 5th Generation Troponin T values and the delta troponin value can be found in the [facility] Test Catalog Troponin - [facility] Test Catalog Reference: [address] [place] [address] Definition of Myocardial Infarction. Journal of the [place] [employer] 2018;72:8646-0207 Blood Venous Draw / Unknown 04/13/2023 12:16 PM EST 04/13/2023 12:36 PM EST Narrative Resulting Agency Comment Spec In Lab Michele Mares MD CHEMISTRY ORDERABLES Performing Organization Address [facility] Co de Phone Number [facility] [place] [address] * Hepatic Function Panel (04/13/2023 12:16 PM EST) Protein, Total 7.7 6.1 - 8.0 g/dL [facility] Albumin 4.1 3.2 - 5.2 g/dL [facility] Aspartate Aminotransferase 10 0 - 39 unit/L [facility] Alanine Aminotransferase 9 0 - 55 unit/L [facility] Alkaline Phosphatase 127 40 - 130 unit/L [facility] Bilirubin, Total 0.3 0.2 - 1.3 mg/dL [facility] Bilirubin, Direct 0.1 0.0 - 0.3 mg/dL [facility] Blood Venous Draw / Unknown 04/13/2023 12:16 PM EST 04/13/2023 12:36 PM EST Narrative Resulting Agency Comment Spec In Lab Michele Mares MD CHEMISTRY ORDERABLES Performing Organization Address [facility]/ZIP Co de Phone Number [facility] [place] [address] * Basic Metabolic Panel (non-fasting) (04/13/2023 12:16 PM EST) Glucose 82 65 - 199 mg/dL [facility] Comment:Diabetes: >=200 mg/d L plus symptoms Blood Urea Nitrogen 14 10 - 20 mg/dL [facility] Creatinine 0.85 0.80 - 1.50 mg/dL [facility] Sodium 139 135 - 145 mmol/L [facility] Potassium 4.4 3.5 - 5.0 mmol/L [facility] Comment: Please note: ??Patients with WBC >100,000 may have falsely elevated Potassium levels. ??For accurate Potassium quantification in these patients send serum separator tube (gold top) for subsequent determinations. ??Contact the Clinical Chemistry Laboratory if there are any questions. Chloride 99 98 - 107 mmol/L [facility] Carbon Dioxide 30 22 - 31 mmol/L [facility] Anion Gap 10 5 - 15 mmol/L [facility] Calcium 10.1 8.5 - 10.5 mg/dL [facility] Est Glomerular Filtration Rate 116 >=60 mL/min/1. 73 m?? [facility] Comment: This patient's estimated GFR was calculated using the 2020 CKD-EPI equation. The estimated GFR can vary from the measured GFR by up to 30% in the absence of rapidly changing kidney function. Assessment of the estimated GFR is not appropriate when creatinine concentrations are rapidly changing. For clinical situations in which a more precise estimate of GFR is necessary, consider alternative methods of GFR estimation such as a 24-hour urine creatinine clearance. Assignment of CKD stage 1-5 for patients with an eGFR near the transition point between stages may be based on clinical assessment of muscle mass and symptoms in addition to eGFR. Blood Venous Draw / Unknown 04/13/2023 12:16 PM EST 04/13/2023 12:36 PM EST Narrative Resulting Agency Comment Spec In Lab Michele Mares MD CHEMISTRY ORDERABLES [facility] [place] [address] * (ABNORMAL) Differential, Automated (04/13/2023 12:16 PM EST) Neutrophil % 69.9 % [facility] Neutrophil Absolute 10.65(H) 1.70 - 6.10 x10(3)/mc L [facility] Lymph % 21.7 % [facility] Lymphocytes Abs 3.3(H) 0.9 - 3.2 x10(3)/ L [facility] Monocyte % 5.7 % [facility] Monocyte Abs 0.9 0.3 - 0.9 x10(3)/ L [facility] Eos % 1.6 % [facility] Eosinophils Abs 0.2 0.0 - 0.4 x10(3)/[facility] Basophil % 0.4 % [facility] Baso Absolute 0.1 0.0 - 0.1 x10(3)/ L [facility] Immature Gran % 0.70 % [facility] Comment: Immature granulocytes(IG's)percentage and absolute count will include metamyelocytes, myelocytes, and promyelocytes. Blood smears from CBCs yielding IG's will be scanned manually for concordance. If this scan disagrees with the automated IG or if promyelocytes are noted, a manual differential will be performed. Immature Gran Absolute 0.10(H) 0.00 - 0.04 x10(3)/ L [facility] Blood Venous Draw / Unknown 04/13/2023 12:16 PM EST 04/13/2023 12:34 PM EST Narrative Resulting Agency Comment Spec In Lab Michele Mares MD HEMATOLOGY ORDERABLE S Performing Organization Address City/State/[facility] Co de Phone Number [facility] [place] [address] * (ABNORMAL) Hemogram (04/13/2023 12:16 PM EST) White Blood Cell 15.2(H) 4.0 - 9.5 x10(3)/ L [facility] Red Blood Cell 3.73(L) 4.58 - 5.54 x10(6)/ L [facility] Hemoglobin 11.3(L) 13.7 - 16.5 g/dL [facility] Hematocrit 34.0(L) 40.5 - 48.5 % [facility] Mean Cell Volume 91.2 82.9 - 93.1 fL [facility] Mean Cell Hemoglobin 30.3 27.5 - 32.1 pg [facility] Mean Cell Hemoglobin Concentration 33.2 32.0 - 35.7 g/dL [facility] Platelet 434(H) 145 - 357 x10(3)/mc L [facility] RDW Standard Deviation 38.1 36.0 - 45.0 fL [facility] RDW coefficient of variation 11.5 11.4 - 13.8 % [facility] Mean Platelet Volume 9.6 7.6 - 12.9 fL [facility] NRBC% auto 0.0 % [facility] NRBC Absolute 0.000 0.000 - 0.000 x10(3)/mc L [facility] Blood Venous Draw / Unknown 04/13/2023 12:16 PM EST 04/13/2023 12:34 PM EST Narrative Resulting Agency Comment Spec In Lab Michele Mares MD HEMATOLOGY ORDERABLE S Performing Organization Address [facility] Co de Phone Number [facility] [place] [address] * Gold Tube HOLD (04/13/2023 12:16 PM EST) Gold Hold Sample in lab. [facility] Blood Venous Draw / Unknown 04/13/2023 12:16 PM EST 04/13/2023 12:35 PM EST Michele Mares MD CHEMISTRY ORDERABLES Performing Organization Address City/[facility] Co de Phone Number [facility] [place] [address] * Blue Tube HOLD (04/13/2023 12:16 PM EST) Blue Hold Sample in lab. [facility] Blood Venous Draw / Unknown 04/13/2023 12:16 PM EST 04/13/2023 12:35 PM EST Michele Mares MD HEMATOLOGY ORDERABLE S [facility] [place] [address] * (ABNORMAL) CRP, acute inflammation (04/13/2023 12:16 PM EST) C-Reactive Protein 88.8(H) <=4.9 mg/L [facility] Blood 04/13/2023 12:1 6 PM EST 04/13/2023 12:34 PM EST Narrative Resulting Agency Comment Spec In Lab Yina Dick DO CHEMISTRY O RDERABLES Performing Organization Address City/[facility] Co de Phone Number [facility] [place] [address] * (ABNORMAL) Sedimentation rate (04/13/2023 12:16 PM EST) Pathologist [facility] Sedimentation Rate Automated >119(H) 2 - 28 mm/hr [facility] Comment: Effective January 28, 2019 new capillary photometric technology has resulted in a change in reference ranges. It is recommended that each ESR result be reviewed with its own age appropriate reference range. Blood 04/13/2023 12:1 6 PM EST 04/13/2023 12:34 PM EST Narrative Resulting Agency Comment Spec In Lab Yina Dick DO HEMATOLOGY ORDERABLES Performing Organization Address [facility] Co de Phone Number [facility] [place] [address] * EKG 12 Lead (04/13/2023 10:23 AM EST) Ventricular rate 56 BPM MUSE SYSTEM Atrial Rate 56 BPM MUSE SYSTEM P-R Interval 128 ms MUSE SYSTEM QRS Duration 82 ms MUSE SYSTEM Q-T Interval 436 ms MUSE SYSTEM QTC Calculated (Bezet) 420 ms MUSE SYSTEM Calculated P [place] 14 degrees MUSE SYSTEM Calculated R [place] 56 degrees MUSE SYSTEM Calculated T [place] 40 degrees MUSE SYSTEM INTERPRETATION Sinus bradycardia Otherwise normal ECG When compared with ECG of 30-MAY-2015 20:34, No significant change was found Confirmed by MD Mares Danette ([id number]) on 04/14/2023 7:55:58 AM MUSE SYSTEM 04/13/2023 10:2 3 AM EST 04/14/2023 7:55 AM EST Yina Christina Kapil DO ECG ORDERAB LES [employer] documented in this encounter Visit Diagnoses Diagnosis Lung mass- Primary Swelling, mass, or lump in chest Chest pain, unspecified type Lung mass Swelling, mass, or lump in chest documented in this encounter Admitting Diagnoses Diagnosis Lung mass Swelling, mass, or lump in chest documented in this encounter Administered Medications Inactive Administered Medications - up to 3 most recent administrations Medication Order MAR Action Action Date Dose Rate Site iohexoL (Omnipaque) (350 mg/mL) solution 0-200 mL 0-200 mL, Intravenous, ONCE PRN, 1 dose, Starting on 04/13/23 at 1444, Until 04/13/23 at 1444, Per Protocol, Warning Vesicant/Irritant Medication , Radiology Contrast, Routine Given 04/13/2023 2:44 PM EST 53 mLs documented in this encounter Active and Recently Administered Medications Times are shown in EST. PRN Medication Order 04/11/2023 04/12/2023 04/13/2023 iohexoL (Omnipaque) (350 mg/mL) solution 0-200 mL (COMPLETED) 0-200 mL, Intravenous, ONCE PRN, 1 dose, Starting on 04/13/23 at 1444, Until 04/13/23 at 1444, Per Protocol, Warning Vesicant/Irritant Medication , Radiology Contrast, Routine 1444 (Given - Provid er: Becka Marquez) documented in this encounter Care Teams New Car Driver Relationship Specialty Start Date End Date None None PCP - General 04/13/23 documented as of this encounter
--- OUTSIDE RECORDS SUMMARY | 2023-11-15 19:52 | XMS_ITS | Encounter Summary ---
Author Organization [facility] Address [facility] [place] [address] Care Team Providers Care Student Union Consultant Name Role Phone Tristian Chase MD, [facility] Primary Care Provider [phone] Encounter Details Date Type Department Care Team (Latest Contact Info) Description 06/12/2015 - 06/12/2015 11:59 PM EDT Hospital Encounter Radiology Library at [facility] [address] Debbie Marsh MD [facility] [place] [address] Pain Discharge Disposition: Home Social History Tobacco Use Types Packs/Day Years Used Date Smoking Tobacco: Never Smokeless Tobacco: Never Alcohol Use Standard Drinks/Week Comments No 0 (1 standard drink = 0.6 oz pur e alcohol) Sex and Gender Information Value Date Recorded Sex Assigned at Not on file Gender Identity Not on file Sexual Orientation Not on file documented as of this encounter Medications at Time of Discharge Medication Sig Dispensed Refills Start Date End Date methadone (DOLOPHINE) 100 mg/10 mL ConcentrateIndicati ons:opioid dependence Take 120 mg by mouth daily. Indications: Opioid Dependence 04/13/2023 levETIRAcetam (KEPPRA) 500 mg Tablet Take 500 mg by mouth 2 times daily. 04/13/2023 enoxaparin (LOVENOX) 120 mg/0.8 mL Syringe Inject 0.77 mLs subcutaneously nightly. 30 Syringe 2 05/31/2015 04/13/2023 ranitidine (ZANTAC) 15 mg/mL syrup 10 ml, PO, Twice daily 03/21/2006 documented as of this encounter Plan of Treatment Not on file documented as of this encounter Procedures Procedure Name Priority Date/Time Associated Diagnosis Comments FILM LIBRARY STORAGE ONLY DX CHEST Routine 06/12/2015 12:00 AM EDT Pain documented in this encounter Results * Film Library- Storage only DX Chest (06/12/2015 12:00 AM EDT) Narrative [facility] - 09/20/2015 10:43 AM EDT This exam is for storage only and is auto-finalizing. Debbie Marsh MD IMG FILM LIBRARY O RDERABLES Performing Organization Address City/State/[facility] Co de Phone Number [place], [place] documented in this encounter Visit Diagnoses Diagnosis Pain Generalized pain documented in this encounter Care Teams Student Union Consultant Relationship Specialty Start Date End Date Marlon Lubin MD [address] [place] [address] PCP - General 01/10/10 04/12/23 documented as of this encounter
--- OUTSIDE RECORDS SUMMARY | 2023-11-15 19:52 | XMS_ITS | Encounter Summary ---
Author Organization [facility] Address [facility] [place] [address] Care Team Providers Care Sr. Logistics Analyst Name Role Phone Tristian Chase MD, Marlon Primary Care Provider Encounter Details Date Type Department Care Team (Latest Contact Info) Description 09/15/2015 - 09/15/2015 11:59 PM EDT Hospital Encounter Radiology Library at [facility] [place] [address] Debbie Marsh MD [facility] HEMATOLOGY [place] [address] Pain Discharge Disposition: Home Social History Tobacco [...] Diagnosis Comments FILM LIBRARY STORAGE ONLY CT CHEST Routine 09/15/2015 12:00 AM EDT Pain documented in this encounter Results * Film Library- Storage Only CT Chest (09/15/2015 12:00 AM EDT) Narrative [facility] - 09/20/2015 10:46 AM EDT This exam is for storage only and is auto-finalizing. Debbie Marsh MD IMG FILM LIBRARY O RDERABLES [place], [place] documented in this encounter Visit Diagnoses Diagnosis Pain Generalized pain documented in this encounter Care Teams Sr. Logistics Analyst Relationship Specialty Start Date End Date Marlon Lubin MD [address] [place] [id number] PCP - General 01/10/10 04/12/23 documented as of this encounter
--- OUTSIDE RECORDS SUMMARY | 2023-11-15 19:52 | XMS_ITS | Encounter Summary ---
Author Organization [facility] [place] [address] Care Team Providers Care B2B Managed Service Sales Exec Name Role Phone Tristian Chase MD, Marlon Primary Care Provider [phone] Encounter Details Date Type Department Care Team (Latest Contact Info) Description 05/27/2015 - 05/27/2015 12:04 AM EDT Hospital Encounter Radiology Library at [facility] [place] [address] Discharge Disposition: Home Social History Tobacco Use [...] FILM LIBRARY STORAGE ONLY DX CHEST STAT 05/27/2015 12:00 AM EDT Pain documented in this encounter Results * Film Library- Storage only DX Chest (05/27/2015 12:00 AM EDT) Narrative User, Generic Transmittal - 05/30/2015 9:19 PM EDT This exam is for storage only and is auto-finalizing. Dr Lala Chacon IMG FILM LIBRARY ORD ERABLES documented in this encounter Visit Diagnoses Not on filedocumented in this encounter Care Teams B2B Managed Service Sales Exec Relationship Specialty Start Date End Date Marlon Lubin MD [address] [place] [address] PCP - General 01/10/10 04/12/23 documented as of this encounter
--- OUTSIDE RECORDS SUMMARY | 2023-11-15 19:52 | XMS_ITS | Encounter Summary ---
Author Organization [facility] Address [facility] [place] [address] Care Team Providers Care Upper Leather Cutter Name Role Phone Tristian Chase MD, Marlon Primary Care Provider [phone] Encounter Details Date Type Department Care Team (Latest Contact Info) Description 09/16/2015 - 09/16/2015 11:59 PM EDT Hospital Encounter Radiology Library at [facility] [place] [address] [facility] [place] [address] Pain Discharge Disposition: Home Social History Tobacco [...] FILM LIBRARY STORAGE ONLY CT CHEST Routine 09/16/2015 12:00 AM EDT Pain documented in this encounter Results * Film Library- Storage Only CT Chest (09/16/2015 12:00 AM EDT) Narrative [facility] - 09/20/2015 10:47 AM EDT This exam is for storage only and is auto-finalizing. Debbie Marsh MD IMG FILM LIBRARY O RDERABLES [place], [place] documented in this encounter Visit Diagnoses Diagnosis Pain Generalized pain documented in this encounter Care Teams Upper Leather Cutter Relationship Specialty Start Date End Date Marlon Lubin MD [address] [place] [id number] PCP - General 01/10/10 04/12/23 documented as of this encounter
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
[2023-11-15 20:03] LABS: Troponin I < 4 ng/L (<or=76)
[2023-11-15] MEDS: Lidocaine 5% Patch 1 PATCH TP (20:18)
[2023-11-15] MEDS: Cyclobenzaprine 10 MG TAB 5 MG PO (20:18)
[2023-11-15 20:19] VITALS: BP 118/82; PULSE 88; RESP 16; TEMP 36.9; O2SAT 98
== END 2023-11-15 20:19 | disposition home or self-care (01) ==
PROVIDERS: Emergency Provider Emergency Medicine; PCP Family Medicine
DX: R91.8 Other nonspecific abnormal finding of lung field (principal); R07.9 Chest pain, unspecified; Z86.711 Personal history of pulmonary embolism
CPT/HCPCS: 71275; 74177; 80053; 93005; 99285; 83880; 84484; 85025; 85610; 85730; 93010; 99284; J3490

== ENCOUNTER 2024-08-10 14:38 | Emergency (ER) | payer MEDICAID, SELFPAY ==
[2024-08-10 14:42] VITALS: BP 144/83; PULSE 100; RESP 16; TEMP 36.6; O2SAT 97
--- NOTE | 2024-08-10 14:45 | W.ED.GENAD ---
Discharge Plan Disposition Patient Disposition: Home Condition: Stable Discharge Details Clinical Impression: Otitis media of right ear Primary Care Provider: Allegra Muñiz ED Provider: Bryon Guerrero Home Meds and New Rx's Prescriptions: New amoxicillin 875 mg tablet 875 mg PO BID 7 Days Qty: 14 0RF lmjlnlre-occqqjsog-MX 3.5-10,000-1 mg/mL-unit/mL-% drops,suspension 4 drp otic (ear) Q8H 7 Days Qty: 10 0RF No Action methadone 10 mg/5 mL solution 120 mg PO QAM Rx Instructions: orally; methadone 10 mg/mL concentrate 100 mg PO QHS Discharge Instructions Instructions: Acetic Acid and Hydrocortisone, Amoxicillin, Ear Infection ED Additional Instructions: You were seen in the emergency department for right ear infection, prescribed amoxicillin sent to [place] [facility], I also sent you some acetic acid eardrops which should help with the erythema of your ear canal. Please take Tylenol and ibuprofen for pain as needed, follow-up with your primary care provider, return to the emergency department for any severe increase in symptoms, pain and bogginess to the bone behind the ear, any other emergent concern. Referrals: Allegra Muñiz [Primary Care Provider, Medicine] Discharge Data Discharge Date/Time-TO BE ENTERED AT DEPARTURE: 08/10/24 15:19 HPI General Date/Time Provider Initiated Documentation: 08/10/24 14:45. HPI Narrative: 34 year-old male presents to ED today by POV/ambulating with a chief complaint of R ear pain, muffled hearing R ear, studdy nose with onset for the past week. Quality described as aching ear pain, no radiation to pain behind the ear, high fever, nausea, vision changes, cough, ear discharge. Severity is described as 2/10. Palliating factors include nothing specific attempted beyond OTC's. Provoking factors include nothing specific. Patient not anticoagulated. Related Data Home Medications ?Medication ?Instructions ?Recorded ?Confirmed methadone 10 mg/5 mL oral solution 120 mg PO QAM 03/22/23 08/10/24 methadone 10 mg/mL oral concentrate 100 mg PO QHS 11/15/23 08/10/24 amoxicillin 875 mg tablet 875 mg PO BID 7 days #14 tabs 08/10/24 [id number] 3.5 4 drp otic (ear) Q8H 7 days #10 mL 08/10/24 mg-10,000 unit/mL-1 % ear drops,susp Previous Rx's ?Medication ?Instructions ?Recorded amoxicillin 875 mg tablet 875 mg PO BID 7 days #14 tabs 08/10/24 [id number]-yrhzcuznz-ksmdzwnll 3.5 4 drp otic (ear) Q8H 7 days #10 mL 08/10/24 mg-10,000 unit/mL-1 % ear drops,susp Allergies Allergy/AdvReac Type Severity Reaction Status Date / Time levofloxacin (From Levaquin) Allergy Severe HIVES Verified 08/10/24 14:41 General Stated Complaint: EarProblem ELLIS: 4 Review of Systems All systems reviewed & are unremarkable except as noted in HPI and below Exam Narrative Exam Narrative: GENERAL APPEARANCE: Well-nourished, non-toxic, awake and alert, atraumatic, no acute distress. SKIN: Warm, pink, dry, intact, without rashes/lesions/ulcerations. HEAD: Normocephalic, atraumatic, normal hair distribution for gender/age. EYES: Normal conjunctiva, no exudates on lids/lashes. ENT: Nares patent, no circumoral cyanosis, no facial swelling, right ear tympanic membrane bulging and erythema in the surrounding canal without discharge or cholesteatoma, no mastoid tenderness or bogginess, left TM within normal limits, benign posterior oropharynx NECK: Supple, trachea midline, painless cervical ROM. LUNGS/CHEST: Lungs CTA bilaterally, non-labored respirations, normal A/P diameter, symmetrical expansion, no chest wall deformity HEART (CV/PV): Regular rate and rhythm without murmur, no peripheral edema, no JVD. ABDOMEN: Soft, non-distended, no guarding. MSK: Normal ROM, no swelling/deformity to bilateral UEs or LEs, moving all extremities without weakness, no cyanosis, spine midline without tenderness, normal curvature. NEURO: Mental Status AAOx4 - alert to person, place, time, events No facial droop, no forehead involvement. Motor: No focal weakness - strength 5/5 in bilateral UEs and LEs, proximal and distal, symmetric. Sensory: sensation intact to light touch globally. Gait normal: patient ambulated without ataxia into ED room. PSYCH: euthymic, cooperative, pleasant, appropriate speech Course Vital Signs Vital signs: Vital Signs Temperature 36.6 C 08/10/24 14:42 Pulse 100 H 08/10/24 14:42 Respiratory Rate 16 08/10/24 14:42 Blood Pressure 144/83 H 08/10/24 14:42 Pulse Oximetry 97 08/10/24 14:42 Temperature 36.6 C 08/10/24 14:42 Temperature Source Oral 08/10/24 14:42 Pulse 100 H 08/10/24 14:42 Respiratory Rate 16 08/10/24 14:42 Blood Pressure 144/83 H 08/10/24 14:42 Blood Pressure Position Sitting 08/10/24 14:42 Pulse Oximetry 97 08/10/24 14:42 Oxygen Delivery Method Room Air 08/10/24 14:42 Oxygen Flow Rate 0 08/10/24 14:42 Pain Level 2 08/10/24 14:42 Medical Decision Making This dictation utilizes [id number] dictation software and may contain unedited grammatical errors. 34 year-old male presents to ED today by POV/ambulating with a chief complaint of R ear pain, muffled hearing R ear, studdy nose with onset for the past week. Quality described as aching ear pain, no radiation to pain behind the ear, high fever, nausea, vision changes, cough, ear discharge. Severity is described as 2/10. Palliating factors include nothing specific attempted beyond OTC's. Provoking factors include nothing specific. Patients' medical history: Fluoroquinolone allergy. Family and social history: noncontributory. Pertinent exam findings / vital signs include right ear tympanic membrane bulging and erythema in the surrounding canal without discharge or cholesteatoma, no mastoid tenderness or bogginess, left TM within normal limits, benign posterior oropharynx, benign cardiopulmonary exam. Differential / pathologies of concern include AOM, OE, not TM rupture, not mastoiditis. Diagnostic studies of: - None. Interventions of: - Rx for amoxicillin as well as topical eardrops. ED Course/Assessment/Plan: 34-year-old male is about a weeks worth of ear pain and muffled hearing, no signs of mastoiditis, treating with amoxicillin for acute otitis media without TM rupture. I did provide him with topical eardrops for his canal erythema without significant discharge or lesions. Findings not consistent with [place] mastoiditis, toxic presentation. Disposition of Otitis Media of Right Ear. Patient verbalized understanding of the plan and return to ED criteria and engaged in shared decision making. Medical Records Medical records reviewed: Yes I reviewed the patient's medical records. PFSH All Active Problems (Updated 08/10/24 @ 14:54 by KASEY Lei) Otitis media of right ear (Acute) Nausea & vomiting (Acute) Headache (Acute) Muscle spasm (Acute) Acute neck pain (Acute) Atypical chest pain (Acute) Chest pain, pleuritic (Acute) Medical History Pulmonary embolism Surgical History No significant past surgical history Social History Smoking/Tobacco Use Status: Never Smoking risk assessment performed?: Yes Alcohol Intake: never Drug use: Daily Substance use type: marijuana Details: Methadone clinic Housing: apartment Do you feel safe at home: Yes Do you feel safe in your relationship?: Yes
== END 2024-08-10 15:19 | disposition home or self-care (01) ==
LOC: ER 15:17
PROVIDERS: Emergency Provider Physician Assistant; PCP Family Medicine
DX: H66.91 Otitis media, unspecified, right ear (principal)
CPT/HCPCS: 99283 ×2